=== PATIENT | male | born 1955 | race Caucasian/White ===

== ENCOUNTER → 2020-02-23 11:17 | Outpatient (BNVA) | payer BC, SELFPAY | PROVIDERS: Family Provider Family Medicine; PCP Family Medicine; Referring Provider Family Medicine; Visit Provider Family Medicine | DX: E78.00 Pure hypercholesterolemia, unspecified (principal); I10 Essential (primary) hypertension; M19.90 Unspecified osteoarthritis, unspecified site | CPT/HCPCS: 80053; 80061; 85025; 85651 ==

== ENCOUNTER → 2021-02-15 10:05 | Outpatient (BNVA) | payer MEDICARE, SELFPAY | PROVIDERS: Family Provider Family Medicine; PCP Family Medicine; Visit Provider Family Medicine | DX: J44.9 Chronic obstructive pulmonary disease, unspecified (principal); E78.00 Pure hypercholesterolemia, unspecified; I10 Essential (primary) hypertension; M48.061 Spinal stenosis, lumbar region without neurogenic claudication | CPT/HCPCS: 71046 ==

== ENCOUNTER 2021-04-05 22:58 | Emergency (ER) | payer MEDICARE, SELFPAY ==
[2021-04-05 23:33] VITALS: BP 100/65; PULSE 80; RESP 22; TEMP 37.2; O2SAT 80; BMI 24.0
[2021-04-06] VITALS (16 sets, daily range): BP systolic 100–138; BP diastolic 53–79; PULSE 74–93; RESP 20–34; O2SAT 85–92
--- NOTE | 2021-04-06 00:30 | XRR_ITS ---
PROCEDURE INFORMATION: Exam: XR Chest Exam date and time: 04/06/2021 12:30 AM Age: 65 years old Clinical indication: Shortness of breath; Patient HX: Sob/hypoxia. Covid + TECHNIQUE: Imaging protocol: XR of the chest. Views: 1 view. COMPARISON: CR XR chest 2V* [id number] 02/15/2021 10:09 AM FINDINGS: Lungs: Interval appearance of moderate to severe bilateral mid lung field pneumonia, left greater than right. Stable COPD . Pleural spaces: Unremarkable. No pleural effusion. No pneumothorax. Heart/Mediastinum: Unremarkable. No cardiomegaly. Bones/joints: Unremarkable. XR/XR chest 1V portable [id number] IMPRESSION: 1. Interval appearance of moderate to severe bilateral mid lung field pneumonia, left greater than right. 2. Stable COPD .
--- NOTE | 2021-04-06 00:30 | ECG_ITS ---
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 Measurements Intervals [place] Rate: 80 P: 66 [place]: 129 QRS: 32 QRSD: 85 T: 59 QT: 351 QTc: 406 Interpretive Statements SINUS RHYTHM POSSIBLE LEFT ATRIAL ENLARGEMENT [-0.1mV P WAVE IN V1/V2] No previous ECG available for comparison Electronically Signed On 04-06-2021 20:28:38 CDT by Steffi Ayala M.D. [id number]
[2021-04-06] MEDS: albuterol 8 gm MDI 2 PUFF INHALATION (00:59)
[2021-04-06 01:06] LABS: ABG PCO2 33.3 mmHg (35-45); ABG PH Result 7.47 (7.35-7.45); Arterial Blood Gas Hematocrit 47.8 % (42-52); Base Excess ABG 1.1 mmol/L (-2.0-2.0); Blood Gas Allen Test Pos; Blood Gas Operator Identificat MONRO; Blood Gas Sample Site Radial, right; Blood Gas Sample Type Arterial; HCO3 ABG 24.1 mmol/L (22-26); Oxygen Device NC; PO2 ABG 54.6 mmHg (80.0-100.0)
[2021-04-06 01:18] LABS: Hematocrit 45.9 % (42.0-52.0); Hemoglobin 15.4 g/dL (11.7-16.6); Mean Corpuscular HGB Conc 33.6 g/dL (30.0-36.0); Mean Corpuscular Hemoglobin 31.4 pg (28.0-34.0); Mean Corpuscular Volume 93.7 fL (80-94); Mean Platelet Volume 9.9 fL (7.4-10.4); Platelet Count 138 10^3/cmm (130-400); Red Cell Distribution Width 12.2 % (12.1-15.1); White Blood Count 14.5 10^3/uL (4.0-10.0)
[2021-04-06] MEDS: dexamethasone 10 mg/mL INJ IVP (01:18)
[2021-04-06 01:32] LABS: D Dimer 1.46 ug/mIFEU (0-0.59)
[2021-04-06 01:41] LABS: Lactic Sepsis W/Reflex 2.5 mmol/L (0.5-2.2)
[2021-04-06 01:43] LABS: Absolute Neutrophil 12.3 10^3/cmm (1.4-6.5); Absolute Segmented Neutrophil 8.4 10/cmm (1.6-7.1); Band Neutrophils Absolute 3.9 10^3/cmm (0.0-1.2); Eosinophils 0 %; Lymphocytes 5 %; Lymphocytes Absolute 0.9 10^3/cmm (1.2-3.4); Monocytes Absolute 0.1 10^3/cmm (0.1-0.6); Platelet Estimate Normal (Normal); Segmented Neutrophils 58 %; Slide Review Slide Review Perform; Total Cells Counted 100 (0-100)
[2021-04-06 01:51] LABS: Alanine Aminotransferase 65 U/L (0-41); Albumin Level 3.2 g/dL (3.5-5.2); Alkaline Phosphatase 55 IU/L (40-130); Anion Gap 19.3 (5-19); Aspartate Amino Transferase 102 U/L (0-40); Blood Urea Nitrogen 17 mg/dL (8-23); Calcium 8.2 mg/dL (8.5-10.5); Carbon Dioxide 21 mmol/L (22-29); Chloride 92 mmol/L (98-107); Globulin 3.1 g/dL (1.3-4.6); Glucose 111 mg/dL (65-115); NT Pro B Type Natriuretic Pept 349 pg/mL (0-125); Osmolality Calculated 268 mOsm/kg (285-295); Potassium 4.3 mmol/L (3.5-5.1); Sodium 128 mmol/L (136-145); Total Bilirubin 0.6 mg/dL (0.15-1.2); Total Protein 6.3 g/dL (6.6-8.7)
--- NOTE | 2021-04-06 02:00 | W.ED.COVID ---
HPI - COVID General: Chief Complaint: COVID symptoms Stated Complaint: COVID POS, SOB LOW SATS Time Seen by Provider: 04/05/21 23:39 Source: patient Mode of arrival: ambulatory Limitations: no limitations Triage information: Has fever, cough or shortness of breath. No known COVID + exposure last 14 days History of Present Illness: HPI Narrative: 65-year-old male states he has not been feeling well since last and had a Covid positive test then. He states that today has had increasing dyspnea and was hypoxic at home. He is requiring 4 L here and has had a productive cough. He has had fever as well. Denies any worsening proving factors. Denies any chest pain. COVID 19 common symptoms: positive fever(s), chills, productive cough, dyspnea and body aches; negative headache(s), throat pain, nausea, vomiting or diarrhea COVID 19 other sytmptoms: negative chest pain COVID Results: No Data to Display Review of Systems Const: Reports: fever(s), chills and body aches Eyes: Denies: blurry vision or eye discomfort ENMT: Denies: throat pain or dental pain Card: Denies: chest pain Resp: Reports: dyspnea and productive cough GI: Denies: abdominal pain, nausea, vomiting or diarrhea : Denies: dysuria Musc: Denies: neck pain or back pain Skin/Breast: Denies: rash Neuro: Denies: headache(s) Psych: Denies: depression Obi/Lymph: Denies: easy bruising All/Imm: Denies: urticaria PFSH ED PFSH: Medical History Asthma Chronic obstructive pulmonary disease Degenerative lumbar spinal stenosis Hypercholesteremia Hypertension Social History Smoking and tobacco status: never smoked Alcohol intake: never Physical Exam Const: COMMON NORMALS: patient oriented x3 GENERAL APPEARANCE: in distress and ill appearing HENMT: COMMON NORMALS: normocephalic and atraumatic HEAD & SCALP: normocephalic and atraumatic Eye: COMMON NORMALS: Equal, round and reactive pupils present and EOMs intact bilaterally PUPIL: Yes Equal, round and reactive pupils present Neck/C-Spine: COMMON NORMALS: full ROM and supple Chest: COMMONS NORMALS: normal inspection of the chest and normal palpation of entire chest wall Resp: COMMON NORMALS: No retractions EFFORT & INSPECTION: Yes tachypneic and Yes respiratory distress AUSCULTATION: rales Cardio: COMMON NORMALS: regular rate, regular rhythm and No murmurs present (Cardio) RATE: regular rate RHYTHM: regular rhythm GI: COMMON NORMALS: Normal to inspection, nondistended, normoactive bowel sounds present, Soft to palpation, non-tender and no masses PALPATION: Yes Soft to palpation Extremity: COMMON NORMALS: normal to inspection and full ROM Neuro: COMMON NORMALS: patient oriented x3, moves all extremities and no focal motor deficits Psych: COMMON NORMALS: mental status grossly normal, Normal thought process present and cooperative THOUGHT PROCESS: Normal thought process present Skin: COMMON NORMALS: no rashes or lesions noted and no wounds GENERAL SKIN EXAM: no rashes or lesions noted Course Vital Signs: Vital signs: Vital Signs Temperature 98.9 F 04/05/21 23:33 Pulse Rate 88 04/06/21 04:04 Respiratory Rate 30 H 04/06/21 04:04 Blood Pressure 108/53 04/06/21 04:04 Pulse Oximetry 89 L 04/06/21 04:04 MDM - COVID MDM Narrative: Medical decision making narrative: Patient presents here with Covid pneumonia. X-ray shows finding of possible bacterial pneumonia as well and will start him on IV antibiotics. Patient is requiring 4 L of oxygen here does have elevated inflammatory markers. I spoke to hospitalist that [facility] in [place] and will transfer there due to bed availability. Lab Data: Labs: Lab Results 04/06/21 04/06/21 04/06/21 Range/Units 00:30 00:30 00:30 WBC Cancelled Corrected WBC Cancelled RBC Cancelled Hgb Cancelled Hct Cancelled MCV Cancelled MCH Cancelled MCHC Cancelled RDW Cancelled Plt Count Cancelled MPV Cancelled Gran % Cancelled Neut % (Auto) Cancelled Lymph % (Auto) Cancelled Davie % (Auto) Cancelled Eos % (Auto) Cancelled Baso % (Auto) Cancelled Neut # (Auto) Cancelled Lymph # (Auto) Cancelled Davie # (Auto) Cancelled Eos # (Auto) Cancelled Baso # (Auto) Cancelled Absolute Gran (aut o) Cancelled Nucleated RBC % (a uto) Cancelled Total Counted (0-100) Atypical Lymphs % (0-5) % Absolute Neutrophi ls (1.4-6.5) 10^3/c mm Segmented Neutroph ils % Abs Segm Neuts (Ma n) (1.6-7.1) 10/cmm Band Neutrophils % Abs Band Neuts (Ma n) (0.0-1.2) 10^3/c mm Absolute Lymphocyt es (1.2-3.4) 10^3/c mm Lymphocytes (Manua l) % Monocytes (Manual) % Absolute Monocytes (0.1-0.6) 10^3/c mm Eosinophils (Manua l) % Absolute Eosinophi ls (0.0-0.7) 10^3/c mm Basophils (Manual) % Absolute Basophils (0.0-0.2) 10^3/c mm Metamyelocytes % Myelocytes % Nucleated RBCs # Cancelled Platelet Estimate (Normal) D-Dimer Cancelled Specimen Type Sample Site ABG pH (7.35-7.45) ABG pCO2 (35-45) mmHg ABG pO2 (80.0-100.0) mmH g ABG HCO3 (22-26) mmol/L ABG Base Excess (-2.0-2.0) mmol/ L Broderick Test Hematocrit (42-52) % O2 Delivery Device O2 Liters/Min % FiO2 % Grounds Restoration Specialist ID Sodium Cancelled Potassium Cancelled Chloride Cancelled Carbon Dioxide Cancelled Anion Gap Cancelled BUN Cancelled Creatinine Cancelled GFR Calculation Cancelled Glucose Cancelled Calculated Osmolal ity Cancelled Lactic Acid Calcium Cancelled Total Bilirubin Cancelled AST Cancelled ALT Cancelled Alkaline Phosphata se Cancelled C-Reactive Protein Cancelled NT-Pro-B Natriuret Pep Cancelled Total Protein Cancelled Albumin Cancelled Globulin Cancelled 04/06/21 04/06/21 04/06/21 Range/Units 00:30 00:54 01:06 WBC 14.5 H Corrected WBC RBC 4.90 Hgb 15.4 Hct 45.9 MCV 93.7 MCH 31.4 MCHC 33.6 RDW 12.2 Plt Count 138 MPV 9.9 Gran % Neut % (Auto) Lymph % (Auto) Not Reportable Davie % (Auto) Not Reportable Eos % (Auto) Baso % (Auto) Neut # (Auto) Lymph # (Auto) Not Reportable Davie # (Auto) Not Reportable Eos # (Auto) Baso # (Auto) Absolute Gran (aut o) Nucleated RBC % (a uto) Total Counted 100 (0-100) Atypical Lymphs % 1.0 (0-5) % Absolute Neutrophi ls 12.3 H (1.4-6.5) 10^3/c mm Segmented Neutroph ils 58 % Abs Segm Neuts (Ma n) 8.4 H (1.6-7.1) 10/cmm Band Neutrophils 27.0 % Abs Band Neuts (Ma n) 3.9 H (0.0-1.2) 10^3/c mm Absolute Lymphocyt es 0.9 L (1.2-3.4) 10^3/c mm Lymphocytes (Manua l) 5 % Monocytes (Manual) 1.0 % Absolute Monocytes 0.1 (0.1-0.6) 10^3/c mm Eosinophils (Manua l) 0 % Absolute Eosinophi ls 0.0 (0.0-0.7) 10^3/c mm Basophils (Manual) 0.0 % Absolute Basophils 0.0 (0.0-0.2) 10^3/c mm Metamyelocytes 7.0 % Myelocytes 1.0 % Nucleated RBCs # Platelet Estimate Normal (Normal) D-Dimer Specimen Type Arterial Sample Site Radial, right ABG pH 7.47 H (7.35-7.45) ABG pCO2 33.3 L (35-45) mmHg ABG pO2 54.6 L (80.0-100.0) mmH g ABG HCO3 24.1 (22-26) mmol/L ABG Base Excess 1.1 (-2.0-2.0) mmol/ L Broderick Test Pos Hematocrit 47.8 (42-52) % O2 Delivery Device Nc O2 Liters/Min 4.0 % FiO2 36.0 % Grounds Restoration Specialist ID [place] Sodium Potassium Chloride Carbon Dioxide Anion Gap BUN Creatinine GFR Calculation Glucose Calculated Osmolal ity Lactic Acid Cancelled Calcium Total Bilirubin AST ALT Alkaline Phosphata se C-Reactive Protein NT-Pro-B Natriuret Pep Total Protein Albumin Globulin 04/06/21 04/06/21 04/06/21 Range/Units 01:06 01:06 01:06 WBC Corrected WBC RBC Hgb Hct MCV MCH MCHC RDW Plt Count MPV Gran % Neut % (Auto) Lymph % (Auto) Davie % (Auto) Eos % (Auto) Baso % (Auto) Neut # (Auto) Lymph # (Auto) Davie # (Auto) Eos # (Auto) Baso # (Auto) Absolute Gran (aut o) Nucleated RBC % (a uto) Total Counted (0-100) Atypical Lymphs % (0-5) % Absolute Neutrophi ls (1.4-6.5) 10^3/c mm Segmented Neutroph ils % Abs Segm Neuts (Ma n) (1.6-7.1) 10/cmm Band Neutrophils % Abs Band Neuts (Ma n) (0.0-1.2) 10^3/c mm Absolute Lymphocyt es (1.2-3.4) 10^3/c mm Lymphocytes (Manua l) % Monocytes (Manual) % Absolute Monocytes (0.1-0.6) 10^3/c mm Eosinophils (Manua l) % Absolute Eosinophi ls (0.0-0.7) 10^3/c mm Basophils (Manual) % Absolute Basophils (0.0-0.2) 10^3/c mm Metamyelocytes % Myelocytes % Nucleated RBCs # Platelet Estimate (Normal) D-Dimer 1.46 H Specimen Type Sample Site ABG pH (7.35-7.45) ABG pCO2 (35-45) mmHg ABG pO2 (80.0-100.0) mmH g ABG HCO3 (22-26) mmol/L ABG Base Excess (-2.0-2.0) mmol/ L Broderick Test Hematocrit (42-52) % O2 Delivery Device O2 Liters/Min % FiO2 % Grounds Restoration Specialist ID Sodium 128 L Potassium 4.3 Chloride 92 L Carbon Dioxide 21 L Anion Gap 19.3 H BUN 17 Creatinine 1.0 GFR Calculation 75.0 L Glucose 111 Calculated Osmolal ity 268 L Lactic Acid 2.5 H Calcium 8.2 L Total Bilirubin 0.6 AST 102 H ALT 65 H Alkaline Phosphata se 55 C-Reactive Protein 496.5 H NT-Pro-B Natriuret Pep 349 H Total Protein 6.3 L Albumin 3.2 L Globulin 3.1 Imaging Data: CXR: Attestation: I personally reviewed and interpreted this imaging study as follows: Radiologist's impression: [facility] [address] [place] [address] XRay Report Signed Patient: Robert Landaverde Unit #: [id number] : 1955 Age/Sex: 65 / M ADM Date: 04/05/21 Loc: ER Room/Bed: Attending Dr: Ordering Provider/Ordering MD: Maria Elena Boland MD Date of Service: 04/06/21 Procedure(s): XR chest 1V portable [id number] Accession Number(s): [id number] Report Number: [id number] PROCEDURE INFORMATION: Exam: XR Chest Exam date and time: 04/06/2021 12:30 AM Age: 65 years old Clinical indication: Shortness of breath; Patient HX: Sob/hypoxia. Covid + TECHNIQUE: Imaging protocol: XR of the chest. Views: 1 view. COMPARISON: CR XR chest 2V* [id number] 02/15/2021 10:09 AM FINDINGS: Lungs: Interval appearance of moderate to severe bilateral mid lung field pneumonia, left greater than right. Stable COPD . Pleural spaces: Unremarkable. No pleural effusion. No pneumothorax. Heart/Mediastinum: Unremarkable. No cardiomegaly. Bones/joints: Unremarkable. XR/XR chest 1V portable [id number] IMPRESSION: 1. Interval appearance of moderate to severe bilateral mid lung field pneumonia, left greater than right. 2. Stable COPD . 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
[2021-04-06 02:12] LABS: C Reactive Protein 496.5 mg/L (0.0-4.9)
[2021-04-06] MEDS: cefTRIAXone 1,000 MG in sodium chloride 0.9% (plus) 50 ML 100 MG IV (02:25)
[2021-04-06 03:01] LABS: Reflex Lactate Order REFLEX LACTIC ORDERD
[2021-04-06] MEDS: azithromycin 500 MG in sodium chloride 0.9% 250 ML 250 MG IV (03:05)
[2021-04-06] MEDS: remdesivir 200 MG in sodium chloride 0.9% (100 ml) 100 ML 100 MG IV (05:33)
== END 2021-04-06 07:23 | disposition short-term general hospital (02) ==
PROVIDERS: Emergency Provider Emergency Medicine; PCP Family Medicine
DX: U07.1 COVID-19 (principal); J12.82 Pneumonia due to coronavirus disease 2019; J44.9 Chronic obstructive pulmonary disease, unspecified; I10 Essential (primary) hypertension
CPT/HCPCS: 36415; 36600; 71045; 80053; 82803; 83605; 83880; 85007; 85025; 85378; 86140; 87040; 93005; 94640; 96365; 96367; 96375; 99285; J0456; J0696; J1100; J3535; J7050

== ENCOUNTER 2021-04-30 08:08 | Emergency (ER) | payer MEDICARE, SELFPAY ==
[2021-04-30] VITALS (9 sets, daily range): BP systolic 116–148; BP diastolic 71–83; PULSE 81–92; RESP 14–18; TEMP 36.7; O2SAT 89–98; BMI 24.0
--- NOTE | 2021-04-30 08:12 | ECG_ITS ---
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 Measurements Intervals [place] Rate: 87 P: 20 [place]: 143 QRS: -13 QRSD: 89 T: 41 QT: 345 QTc: 417 Interpretive Statements SINUS RHYTHM MODERATE VOLTAGE CRITERIA FOR LVH, CONSIDER NORMAL VARIANT [MEETS CRITERIA IN ONE OF: R(aVL), S(V1), R(V5), R(V5/V6)+S(V1)] INTERPRETATION BASED ON A DEFAULT AGE OF 40 YEARS Compared to ECG 04/06/2021 00:53:18 No significant changes Electronically Signed On 04-30-2021 22:03:54 CDT by Christofer Vaz M.D. [id number] f
--- NOTE | 2021-04-30 08:12 | XRR_ITS ---
PROCEDURE INFORMATION: Exam: XR Chest Exam date and time: 04/30/2021 8:12 AM Age: 65 years old Clinical indication: Dyspnea TECHNIQUE: Imaging protocol: XR of the chest. Views: 1 view. Total images: 1 COMPARISON: CR (CHEST, ) 04/06/2021 12:51 AM FINDINGS: Lungs: Coarse chronic pulmonary markings. Bilateral pulmonary opacities are again noted and have shown interval worsening from the prior exam. Pleural spaces: Unremarkable. No pleural effusion. No pneumothorax. Heart/Mediastinum: Low lung volumes are present, accentuating cardiac size and pulmonary markings. Bones/joints: Osseous structures are unchanged from the prior exam. XR/XR chest 1V portable [id number] IMPRESSION: 1. Low lung volumes are present, accentuating cardiac size and pulmonary markings. 2. Coarse chronic pulmonary markings. 3. Bilateral pulmonary opacities are again noted and have shown interval worsening from the prior exam.
--- NOTE | 2021-04-30 08:31 | CTR_ITS ---
PROCEDURE INFORMATION: Exam: CTA Chest With Contrast Exam date and time: 04/30/2021 8:31 AM Age: 65 years old Clinical indication: Pain; Left-sided; Additional info: Prior covid, persistent hypoxia, pleuritic chest pain TECHNIQUE: Imaging protocol: Computed tomographic angiography of the chest with contrast. 3D rendering (Not supervised by radiologist): MIP and/or 3D reconstructed images were created by the technologist. Radiation optimization: All CT scans at this facility use at least one of these dose optimization techniques: automated exposure control; mA and/or kV adjustment per patient size (includes targeted exams where dose is matched to clinical indication); or iterative reconstruction. Contrast material: OMNIPAQUE 350; Contrast volume: 63 ml; Contrast route: INTRAVENOUS (IV); COMPARISON: CR (CHEST, ) 04/30/2021 9:12 AM RADIATION DOSE METRICS: Total DLP (mGy-cm): 503.76 FINDINGS: Pulmonary arteries: Normal. No pulmonary emboli. Aorta: There is atherosclerotic calcification of the aorta but there is no aneurysm. Lungs: There are extensive bilateral pulmonary infiltrates which may be due to an interstitial viral pneumonia. There is left basilar consolidation. Pleural spaces: There is a small left pleural effusion. No pneumothorax. Heart: The heart is not enlarged. There is moderate calcification of the coronary arteries. Mediastinal space: Small sliding hiatal hernia. Lymph nodes: Unremarkable. No enlarged lymph nodes. 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 Soft tissues: Unremarkable. CT/CT angio chest PE protcl [id number] IMPRESSION: 1. No evidence of pulmonary embolus or aortic aneurysm/dissection. 2. Extensive bilateral pulmonary infiltrates which could be due to a viral pneumonia. 3. Small left pleural effusion and left basilar atelectasis. 4. Moderate coronary artery calcification. Radiation Dose CTDIVOL = (mGy): DLP = 503.76 (mGy-cm)
--- NOTE | 2021-04-30 09:29 | W.ED.GENADLT ---
HPI - General Adult General: Chief complaint: General Medical Stated complaint: pain with inspiration Time Seen by Provider: 04/30/21 09:18 History of Present Illness: HPI narrative: Patient is a 65-year-old male with history of rheumatoid arthritis, hypertension who was recently hospitalized at [facility] on 04/06/2021 for Covid pneumonia and discharged home on 3 L nasal cannula presenting to the emergency room with complaints of acute onset left-sided pleuritic chest pain since yesterday afternoon. Patient says that pain gradually onset x 1 day and since then, has been unable to take a full deep breath. Patient denies any nausea/vomiting, cough, hemoptysis, history of DVT/PE, leg swelling, or ED exertional shortness of breath. Patient also denies any palpitation, GI or symptoms. No history of smoking, no family history of cardiac diseases. Patient denies any sympathomimetic use. Patient denies any right-sided chest pain as documented per triage. Onset:1 day ago Duration:1 day Location:home Severity:moderate Review of Systems Narrative: Constitutional: No fever, no chills. HEENT: No vision changes CV: +pleuritic chest pain, no palpitations PULM: no cough, no dyspnea. GI: No abdominal pain, no N/V/D. : No dysuria MSKEL: No muscle pain SKIN: No new rashes, no lesions. NEURO: No headache, no focal weakness. HEME: No visible bruises PSYCH: Normal mood [facility] ED PFSH: Medical History Asthma Chronic obstructive pulmonary disease Degenerative lumbar spinal stenosis Hypercholesteremia Hypertension Social History Smoking and tobacco status: never smoked Alcohol intake: never Physical Exam Narrative: EXAM NARRATIVE: Head: Atraumatic Eyes: PERRL, conjunctiva without injection ENT: Mucous membrane moist NECK: Supple, ROM intact LUNGS: Coarse breath sounds throughout lung arzola CV: RRR ABDOMEN: Soft, nontender in all quadrants EXTREMITY: Normal ROM SKIN: No rash or erythema NEURO: Awake and alert, no focal motor deficits PSYCH: Normal mood and affect Course Vital Signs: Vital signs: Vital Signs Temperature 98.0 F 08/28/21 08:20 Pulse Rate 82 04/30/21 12:59 Respiratory Rate 18 04/30/21 13:39 Blood Pressure 116/79 04/30/21 12:59 Pulse Oximetry 97 04/30/21 13:39 MDM - General Adult MDM Narrative: Medical decision making narrative: 65-year-old male with history of hypertension, rheumatoid arthritis, recent Covid pneumonia presenting to the emergency room for evaluation of acute onset left-sided pleuritic chest pain. On room air, patient sats at 93%. However uses 3 L of oxygen at baseline. EKG showing regular sinus rhythm at HT of [87]. Normal axis. No ST elevations/depressions to suggest coronary occlusion. Normal TX, QRS, QT intervals. Work-up today showed a white count of 13 which is consistent with prior visit for COVID PNA. CTA chest negative for PE. Patient is noted to have bilateral pulmonary infiltrate which could explain patient's source of pain. Pain appears to be well controlled. Patient will follow-up with a forest fire prevention manager on 05/23. Troponin today initially is noted to be 23, repeat troponin of 21. At this present time, patient denies has any exertional chest pain or squeezing chest pain. I do not know what the source of the troponin elevation is. In addition, I told him he has moderate calcification in the coronary arteries on CTA which is very concerning. I have discussed this finding with patient and offered admission for serial reevaluation/echo/and stress. However upon hearing that the stress test will not be available on the weekend and will only be available on Sunday (3 days from now), high prevalance of covid and possible reexposure, and no hospital beds (only ED boarding at this time) during the ongoing covid pandemic, the patient declined to come into the hospital today. I have explained to the patient the risk of leaving today including possible serious injuries such as heart attack and possible . Patient verbalizes understanding of all these risks and acknowledges desire for the alternative of going to see a gold burnisher outpatient to follow-up with his blood work. Patient is instructed to use the incentive spirometer as much as he needs it. Rx: Percocet PRN chest pain Disposition: Discharge. I have given patient strict return precaution for any worsening chest pain, fever/chills, nausea, vomiting, abdominal pain, or any new or concerning complaints. Have explained to the patient that it is very important that he follows up with his primary care provider as well as a gold burnisher for addressing his troponin elevation. I have called our case planner to make sure that the patient has an appointment with a gold burnisher by Sunday. If patient is experiencing chest pain at any point time, I have instructed patient to come back to the emergency room for further cardiac work-up. Patient verbalizes understanding of everything discussed today. Lab Data: Labs: Lab Results 04/30/21 04/30/21 04/30/21 Range/Units 10:10 10:10 10:10 WBC 13.0 H (4.0-10.0) 10^3/ uL RBC 4.01 L (4.1-5.3) 10^6/u L Hgb 12.4 (11.7-16.6) g/dL Hct 38.4 L (42.0-52.0) % MCV 95.8 H (80-94) fl MCH 30.9 (28.0-34.0) pg MCHC 32.3 (30.0-36.0) g/dL RDW 12.9 (12.1-15.1) % Plt Count 214 (130-400) 10^3/c mm MPV 9.1 (7.4-10.4) fL Neut % (Auto) 83.7 % Lymph % (Auto) 7.7 % [place] % (Auto) 5.9 % Eos % (Auto) 1.3 % Baso % (Auto) 0.5 % Neut # (Auto) 10.88 H (1.8-7.7) 10^3/u L Lymph # (Auto) 1.0 (0.8-4.8) 10^3/u L [place] # (Auto) 0.8 (0.2-0.9) 10^3/u L Eos # (Auto) 0.2 (0.0-0.8) 10^3/u L Baso # (Auto) 0.1 (0.0-0.1) 10^3/u L Nucleated RBC % (a uto) 0 % Nucleated RBCs # 0.0 /100WBC Sodium 138 (136-145) mmol/L Potassium 4.1 (3.5-5.1) mmol/L Chloride 101 (98-107) mmol/L Carbon Dioxide 27 (22-29) mmol/L Anion Gap 14.1 (5-19) BUN 11 (8-23) mg/dL Creatinine 0.7 (0.7-1.2) mg/dL GFR Calculation 113.2 (90-130) mL/min Glucose 95 (65-115) mg/dL Calculated Osmolal ity 285 (285-295) mOsm/k g Calcium 8.2 L (8.5-10.5) mg/dL Troponin T Baselin e 23 H (0-15) ng/L Troponin T 120 Min seminole (0-15) ng/L Delta Troponin T (0-10) ABS# NT-Pro-B Natriuret Pep 155 H (0-125) pg/mL SARS-CoV-2 Ag (Rap id) (Negative) 04/30/21 04/30/21 Range/Units 10:10 12:24 WBC (4.0-10.0) 10^3/ uL RBC (4.1-5.3) 10^6/u L Hgb (11.7-16.6) g/dL Hct (42.0-52.0) % MCV (80-94) fl MCH (28.0-34.0) pg MCHC (30.0-36.0) g/dL RDW (12.1-15.1) % Plt Count (130-400) 10^3/c mm MPV (7.4-10.4) fL Neut % (Auto) % Lymph % (Auto) % [place] % (Auto) % Eos % (Auto) % Baso % (Auto) % Neut # (Auto) (1.8-7.7) 10^3/u L Lymph # (Auto) (0.8-4.8) 10^3/u L [place] # (Auto) (0.2-0.9) 10^3/u L Eos # (Auto) (0.0-0.8) 10^3/u L Baso # (Auto) (0.0-0.1) 10^3/u L Nucleated RBC % (a uto) % Nucleated RBCs # /100WBC Sodium (136-145) mmol/L Potassium (3.5-5.1) mmol/L Chloride (98-107) mmol/L Carbon Dioxide (22-29) mmol/L Anion Gap (5-19) BUN (8-23) mg/dL Creatinine (0.7-1.2) mg/dL GFR Calculation (90-130) mL/min Glucose (65-115) mg/dL Calculated Osmolal ity (285-295) mOsm/k g Calcium (8.5-10.5) mg/dL Troponin T Baselin e (0-15) ng/L Troponin T 120 Min seminole 21.99 H (0-15) ng/L Delta Troponin T -1.01 L (0-10) ABS# NT-Pro-B Natriuret Pep (0-125) pg/mL SARS-CoV-2 Ag (Rap id) Negative (Negative) Imaging Data^: Other Imaging: Radiologist's impression: [address] [id number] ReportSigned Patient: Robert Landaverde #: [id number]: 5Acct#:[id number]/Sex: 65 / MADM Date: 04/30/21Loc: ERRoom/Bed:Attending Dr: Ordering Provider/Ordering MD: Stephan Barlow MD Date of Service: 04/30/21 Procedure(s): XR chest 1V portable [id number] Accession Number(s): [id number] Report Number: [id number] PROCEDURE INFORMATION: Exam: XR Chest Exam date and time: 04/30/2021 8:12 AM Age: 65 years old Clinical indication: Dyspnea TECHNIQUE: Imaging protocol: XR of the chest. Views: 1 view. Total images: 1 COMPARISON: CR (CHEST, ) 04/06/2021 12:51 AM FINDINGS: Lungs: Coarse chronic pulmonary markings. Bilateral pulmonary opacities are again noted and have shown interval worsening from the prior exam. Pleural spaces: Unremarkable. No pleural effusion. No pneumothorax. Heart/Mediastinum: Low lung volumes are present, accentuating cardiac size and pulmonary markings. Bones/joints: Osseous structures are unchanged from the prior exam. XR/XR chest 1V portable [id number] IMPRESSION: 1. Low lung volumes are present, accentuating cardiac size and pulmonary markings. 2. Coarse chronic pulmonary markings. 3. Bilateral pulmonary opacities are again noted and have shown interval worsening from the prior exam. Dictated By:Dionisio Llamas MDSigned By:Dionisio Llamas MDSigned Date/Time:04/30/21 1029DD/ [address] [facility] [place], [place] [address]GJ Scan ReportSigned Patient: Robert Landaverde #: [id number]: 5Acct#:[id number]/Sex: 65 / MADM Date: 04/30/21Loc: ERRoom/Bed:Attending Dr: Ordering Provider/Ordering MD: Stephan Barlow MD Date of Service: 04/30/21 Procedure(s): CT angio chest PE protcl [id number] Accession Number(s): [id number] Report Number: [id number] PROCEDURE INFORMATION: Exam: CTA Chest With Contrast Exam date and time: 04/30/2021 8:31 AM Age: 65 years old Clinical indication: Pain; Left-sided; Additional info: Prior covid, persistent hypoxia, pleuritic chest pain TECHNIQUE: Imaging protocol: Computed tomographic angiography of the chest with contrast. 3D rendering (Not supervised by radiologist): MIP and/or 3D reconstructed images were created by the technologist. Radiation optimization: All CT scans at this facility use at least one of these dose optimization techniques: automated exposure control; mA and/or kV adjustment per patient size (includes targeted exams where dose is matched to clinical indication); or iterative reconstruction. Contrast material: OMNIPAQUE 350; Contrast volume: 63 ml; Contrast route: INTRAVENOUS (IV); COMPARISON: CR (CHEST, ) 04/30/2021 9:12 AM RADIATION DOSE METRICS: Total DLP (mGy-cm): 503.76 FINDINGS: Pulmonary arteries: Normal. No pulmonary emboli. Aorta: There is atherosclerotic calcification of the aorta but there is no aneurysm. Lungs: There are extensive bilateral pulmonary infiltrates which may be due to an interstitial viral pneumonia. There is left basilar consolidation. Pleural spaces: There is a small left pleural effusion. No pneumothorax. Heart: The heart is not enlarged. There is moderate calcification of the coronary arteries. Mediastinal space: Small sliding hiatal hernia. Lymph nodes: Unremarkable. No enlarged lymph nodes. 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 Soft tissues: Unremarkable. CT/CT angio chest PE protcl [id number] IMPRESSION: 1. No evidence of pulmonary embolus or aortic aneurysm/dissection. 2. Extensive bilateral pulmonary infiltrates which could be due to a viral pneumonia. 3. Small left pleural effusion and left basilar atelectasis. 4. Moderate coronary artery calcification. Radiation Dose CTDIVOL = (mGy): DLP = 503.76 (mGy-cm) Dictated By:Tiffany Morales By:Tiffany Morales Date/Time:04/30/216DD/ 1205 Discharge Plan Discharge Patient Disposition: Home Clinical Impression: Chest pain Condition: Stable Prescriptions: New Percocet 5-325 mg tablet 1 tab PO TID PRN (Reason: pain) Qty: 12 RF: 0 ibuprofen 400 mg tablet 400 mg PO TID PRN (Reason: pain) Qty: 21 RF: 0 No Action fluticasone propion-salmeterol [Advair Diskus] 250-50 mcg/dose blister with device 1 inh INHALATION BID RF: 0 nitroglycerin [Nitrostat] 0.4 mg tablet, sublingual 0.4 mg SUBLINGUAL Q5M PRNRF: 0 atorvastatin 20 mg tablet 20 mg PO DAILY Qty: 90 RF: 2 lisinopril-hydrochlorothiazide 20-25 mg tablet 1 tab PO DAILY Qty: 90 RF: 3 prednisone 10 mg tablet 10 mg PO BID 30 Days Qty: 60 RF: 4 Zyrtec 10 mg capsule 10 mg PO DAILY 15 Days Qty: 15 RF: 0 amlodipine 5 mg tablet 5 mg PO BID 90 Days Qty: 180 RF: 3 nystatin 100,000 unit/mL suspension 5 ml PO TID 7 Days Qty: 200 RF: 0 methotrexate sodium 2.5 mg tablet 10 mg PO DAILY Qty: 60 RF: 1 albuterol sulfate [ProAir HFA] 90 mcg/actuation HFA aerosol inhaler See Rx Instructions .ROUTE .COMPLEX Qty: 8.5 RF: 4 hydrocodone-acetaminophen 7.5-325 mg tablet 1 tab PO TID PRN (Reason: pain) 30 Days Qty: 90 RF: 0 amoxicillin 500 mg tablet 1,000 mg PO Q8H 7 Days Qty: 42 RF: 0 azithromycin 250 mg tablet See Rx Instructions .ROUTE .COMPLEX Qty: 6 RF: 0 Discharge Orders: Discharge ED (Routine); Ordered 04/30/21 Ordered By: Stephan Barlow Referrals: Leila Weiss MD [Primary Care Provider] - Discharge Diet: Regular Discharge Activity: Resume usual activity Patient Instructions: Opioid Safety Activity Restrictions/Additional Instructions: Come back to the emergency room your pain worsens, if you have any fever chills, nausea vomiting, difficulty breathing, or any new or concerning complaints. Please take your opiate medication carefully. Please follow-up with a gold burnisher for your abnormal enzyme results. Coding Level of Care Code ED Dna Sequencing Associate for Mj Paredes
--- NOTE | 2021-04-30 09:40 | PC.NURSE ---
pt arrived on unit at 0940; assumed care at that time.
--- NOTE | 2021-04-30 10:12 | ECG_ITS ---
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 Measurements Intervals [place] Rate: 85 P: 29 RI: 152 QRS: -10 QRSD: 86 T: 41 QT: 350 QTc: 418 Interpretive Statements SINUS RHYTHM MODERATE VOLTAGE CRITERIA FOR LVH, CONSIDER NORMAL VARIANT [MEETS CRITERIA IN ONE OF: R(aVL), S(V1), R(V5), R(V5/V6)+S(V1)] Compared to ECG 04/06/2021 00:53:18 No significant changes Electronically Signed On 04-30-2021 22:07:36 CDT by Christofer Vaz M.D. [id number]
[2021-04-30] MEDS: morphine 4 mg/mL SDV 1 mL 2 MG IVP (10:23)
[2021-04-30 10:41] LABS: Basophils # 0.1 10^3/uL (0.0-0.1); Basophils % 0.5 %; Eosinophils # 0.2 10^3/uL (0.0-0.8); Eosinophils % 1.3 %; Hematocrit 38.4 % (42.0-52.0); Hemoglobin 12.4 g/dL (11.7-16.6); Lymphocytes % 7.7 %; Mean Corpuscular HGB Conc 32.3 g/dL (30.0-36.0); Mean Corpuscular Hemoglobin 30.9 pg (28.0-34.0); Mean Corpuscular Volume 95.8 fl (80-94); Mean Platelet Volume 9.1 fL (7.4-10.4); Monocytes # 0.8 10^3/uL (0.2-0.9); Monocytes % 5.9 %; Neutrophils # 10.88 10^3/uL (1.8-7.7); Neutrophils % 83.7 %; Nucleated Red Blood Cells % 0 %; Platelet Count 214 10^3/cmm (130-400); Red Blood Count 4.01 10^6/uL (4.1-5.3); Red Cell Distribution Width 12.9 % (12.1-15.1)
[2021-04-30 11:04] LABS: Troponin(5th) Baseline 23 ng/L (0-15)
[2021-04-30 11:14] LABS: Anion Gap 14.1 (5-19); Blood Urea Nitrogen 11 mg/dL (8-23); Calcium 8.2 mg/dL (8.5-10.5); Carbon Dioxide 27 mmol/L (22-29); Chloride 101 mmol/L (98-107); Glomerular Filtration Rate 113.2 mL/min (90-130); Glucose 95 mg/dL (65-115); NT Pro B Type Natriuretic Pept 155 pg/mL (0-125); Osmolality Calculated 285 mOsm/kg (285-295); Potassium 4.1 mmol/L (3.5-5.1); SARS Covid-2 Antigen Negative (Negative); Sodium 138 mmol/L (136-145)
[2021-04-30] MEDS: iohexol 350 mg/mL 100 mL Btl IV (11:30)
[2021-04-30] MEDS: morphine 4 mg/mL SDV 1 mL IVP (11:45)
[2021-04-30 13:04] LABS: Troponin 5 2HR 21.99 ng/L (0-15)
[2021-04-30 13:07] LABS: Troponin 5 2HR Delta -1.01 ABS# (0-10)
[2021-04-30] MEDS: oxyCODONE-APAP 5-325 mg Tablet 1 TAB PO (13:07)
[2021-05-01 17:52] LABS: Quest SARS-CoV-2 RNA DETECTED (NOT DETECTED)
== END 2021-04-30 13:41 | disposition home or self-care (01) ==
PROVIDERS: Emergency Provider Emergency Medicine; PCP Family Medicine
DX: R07.9 Chest pain, unspecified (principal); J44.9 Chronic obstructive pulmonary disease, unspecified; E78.00 Pure hypercholesterolemia, unspecified; I10 Essential (primary) hypertension; Z86.16 Personal history of COVID-19; J18.9 Pneumonia, unspecified organism; J90 Pleural effusion, not elsewhere classified
CPT/HCPCS: 71045; 71275; 80048; 83880; 84484; 85025; 87426; 87635; 93005; 96374; 96376; 99283; 99284; J2270; Q9967

== ENCOUNTER 2021-04-30 17:14 | Emergency (ER) | payer MEDICARE, SELFPAY ==
[2021-04-30 18:05] VITALS: BP 119/73; PULSE 90; RESP 18; TEMP 36.8; O2SAT 91; BMI 24.0
--- NOTE | 2021-04-30 20:05 | ED_ITS ---
HPI - Chest Pain General: Chief Complaint: Chest Pain Stated Complaint: chest pain Time Seen by Provider: 04/30/21 19:25 Source: patient, RN notes reviewed and old records reviewed Mode of arrival: ambulatory Limitations: no limitations History of Present Illness: HPI narrative: 65-year-old male who was seen earlier today in the emergency department for the same symptoms. He complained of left-sided chest pain and an extensive work-up was done during his first ED visit. Baseline and 2-hour troponin delta was flat. Troponin was mildly elevated. CTA of his lungs that were done earlier was negative for pulmonary embolism but showed bilateral pneumonia and some pleural effusion. The ED physician was also concerned that on the CTA calcification of the coronary arteries were noted. He therefore wanted to admit the patient at the time but apparently the hospitalist was not in agreement. Somehow the patient's called and spoke to the ED physician that saw him earlier today and she was told that he needed to come back for hospital admission. The patient is currently chest pain-free and is asymptomatic at this time. He has no complaints. He states that he is not sure why he was asked to come to the ED. The chest pain is pleuritic in nature, worse on inspiration. Associated symptoms: Deny abdominal pain, diaphoresis, dyspnea, fever(s), leg edema, nausea, palpitations, sense of impending doom, syncope or vomiting Review of Systems General: Reports: 10 or more systems reviewed and unremarkable except in HPI and below Const: Denies: fever(s) or diaphoresis Card: Denies: palpitations or syncope Resp: Denies: dyspnea GI: Denies: abdominal pain, nausea or vomiting [facility] ED PFSH: Medical History (Reviewed 04/30/21 @ 22:21 by Kuldip Aponte MD, [facility] [place]) Asthma Chronic obstructive pulmonary disease Degenerative lumbar spinal stenosis Hypercholesteremia Hypertension Social History (Reviewed 04/30/21 @ 22:21 by Kuldip Aponte MD, [facility] [place]) Smoking and tobacco status: never smoked Alcohol intake: never Physical Exam Const: COMMON NORMALS: no acute distress, average body habitus, patient oriented x3, no limitations, healthy appearing, alert and well nourished HENMT: COMMON NORMALS: normocephalic, atraumatic and moist oral mucous membranes HEAD & SCALP: normocephalic and atraumatic Neck/C-Spine: COMMON NORMALS: no meningeal signs and no JVD Chest: COMMONS NORMALS: normal inspection of the chest and normal palpation of entire chest wall Resp: COMMON NORMALS: normal respiratory effort, No retractions, No use of accessory muscles, clear to auscultation bilaterally and percussion normal AUSCULTATION: clear to auscultation bilaterally PERCUSSION: percussion normal Cardio: COMMON NORMALS: no JVD, regular rate, regular rhythm, S1 normal heart sound present, S2 normal heart sound present, No gallops present (Cardio), No clicks present (Cardio), No murmurs present (Cardio), No rub (Cardio) and Perip heral pulses 2+ throughout RATE: regular rate RHYTHM: regular rhythm HEART SOUNDS: S1 normal heart sound present and S2 normal heart sound present PERIPHERAL PULSES: Peripheral pulses 2+ throughout GI: COMMON NORMALS: Normal to inspection, nondistended, normoactive bowel sounds present, Soft to palpation, non-tender, No hepatosplenomegaly present, no masses and no bruits PALPATION: Yes Soft to palpation and Yes No hepatosplenomegaly present Extremity: COMMON NORMALS: normal to inspection, full ROM, capillary refill normal, no calf tenderness and no pedal edema Neuro: COMMON NORMALS: patient oriented x3 SENSORIUM/ORIENTATION: Yes alert MENINGEAL SIGNS: Yes no meningeal signs Skin: COMMON NORMALS: no rashes or lesions noted, no wounds, turgor normal, no jaundice, no petechiae and no mottling GENERAL SKIN EXAM: no rashes or lesions noted and turgor normal Course Reevaluation(s): Reevaluation #1: Discussed his troponin levels with him and his . Also discussed his prior labs today, including the CTA of his lungs. Troponin is not significantly changed from earlier today. CTA shows bilateral pneumonia with left pleural effusion. I explained that I believe the pleuritic chest pain may be secondary to the effusion. However because his troponin is mildly elevated he will benefit from a stress test as he is heart score is 4. Since it has been about 3 weeks since his Covid diagnosis that he still has persistent pneumonia with a likely parapneumonic effusion he may have a superimposed bacterial infection and so he will be treated with oral ant ibiotics. Patient and his voiced understanding and they are in agreement with the plan. Time: 20:54 Vital Signs: Vital signs: Vital Signs Temperature 98.3 F 04/30/21 18:05 Pulse Rate 85 04/30/21 21:00 Respiratory Rate 15 04/30/21 21:00 Blood Pressure 117/73 04/30/21 21:00 Pulse Oximetry 93 04/30/21 21:00 MDM - Chest Pain MDM Narrative: Medical decision making narrative: 65-year-old male who presents to the emergency department after having asked to return. Admitted earlier today for chest pain. Work-up is negative for acute coronary syndrome but he has elevated troponin and he is heart score is 4, meaning he is a moderate risk of a major adverse cardiac event within the next 6 weeks, about 17%. He will therefore be discharged home and will obtain an outpatient stress test. He was also discharged home on oral antibiotics for possible superimposed bacterial infection. He is to follow-up with his primary care provider, an outpatient stress test was ordered by me. Medical Records: Attestation: I reviewed the patient's medical records. Lab Data: Attestation: I reviewed the patient's lab results. Labs: Lab Results 04/30/21 Range/Units 19:50 Troponin T Gen 5 n g/L 25 H (0-15) ng/L EKG Data^: EKG 1: Attestation: I personally reviewed and interpreted this EKG as follows: EKG interpretation date: 04/30/21 EKG interpretation time: 19:49 Prior EKG tracings: available for review Interpretation: Sinus rhythm. Heart rate [address] changes. Discharge Plan Discharge Patient Disposition: Home Clinical Impression: Pleural effusion Pneumonia Qualifiers: Pneumonia type: due to unspecified organism Laterality: bilateral Lung location: unspecified part of lung Qualified Code(s): J18.9 - Pneumonia, unspecified organism Chest pain Qualifiers: Chest pain type: unspecified Qualified Code(s): R07.9 - Chest pain, unspecified Condition: Stable Prescriptions: New amoxicillin 500 mg tablet 1,000 mg PO Q8H 7 Days Qty: 42 RF: 0 azithromycin 250 mg tablet See Rx Instructions .ROUTE .COMPLEX Qty: 6 RF: 0 Continued fluticasone propion-salmeterol [Advair Diskus] 250-50 mcg/dose blister with device 1 inh INHALATION BID RF: 0 nitroglycerin [Nitrostat] 0.4 mg tablet, sublingual 0.4 mg SUBLINGUAL Q5M PRNRF: 0 atorvastatin 20 mg tablet 20 mg PO DAILY Qty: 90 RF: 2 lisinopril-hydrochlorothiazide 20-25 mg tablet 1 tab PO DAILY Qty: 90 RF: 3 prednisone 10 mg tablet 10 mg PO BID 30 Days Qty: 60 RF: 4 Zyrtec 10 mg capsule 10 mg PO DAILY 15 Days Qty: 15 RF: 0 amlodipine 5 mg tablet 5 mg PO BID 90 Days Qty: 180 RF: 3 nystatin 100,000 unit/mL suspension 5 ml PO TID 7 Days Qty: 200 RF: 0 methotrexate sodium 2.5 mg tablet 10 mg PO DAILY Qty: 60 RF: 1 albuterol sulfate [ProAir HFA] 90 mcg/actuation HFA aerosol inhaler See Rx Instructions .ROUTE .COMPLEX Qty: 8.5 RF: 4 hydrocodone-acetaminophen 7.5-325 mg tablet 1 tab PO TID PRN (Reason: pain) 30 Days Qty: 90 RF: 0 Percocet 5-325 mg tablet 1 tab PO TID PRN (Reason: pain) Qty: 12 RF: 0 ibuprofen 400 mg tablet 400 mg PO TID PRN (Reason: pain) Qty: 21 RF: 0 Discharge Orders: Discharge ED (Routine); Ordered 04/30/21 Ordered By: Kuldip Aponte Referrals: Leila Weiss MD [Primary Care Provider] - 1-3 days Discharge Diet: Usual diet Discharge Activity: Increase activity as tolerated Patient Instructions: Chest Pain (ED), Pleural Effusion (ED), Pneumonia (ED) Activity Restrictions/Additional Instructions: Return for any new or worsening symptoms. Follow-up with your primary care provider within 3 days. Take antibiotics as prescribed. You will be contacted by case management next week to schedule an appointment for a stress test. This will help further evaluate your heart. Coding Level of Care Code ED Senior Web Applications Developer for Mj Paredes
[2021-04-30 20:09] VITALS: BP 130/74; PULSE 86; RESP 15; O2SAT 93
[2021-04-30 20:33] LABS: Troponin T (5th) Once 25 ng/L (0-15)
[2021-04-30 21:00] VITALS: BP 117/73; PULSE 85; RESP 15; O2SAT 93
--- NOTE | 2021-05-02 08:57 | PC.NURSE ---
Patient notified of covid test results at this time
--- NOTE | 2021-05-03 11:47 | DCPLANNER ---
Addendum entered by Pauline Parra 05/04/21 08:58: clinical education manager spoke with patient about getting a follow up appointment with primary care. Patient stated that he had an appointment with his primary care physician scheduled. Original Note: clinical education manager had message to schedule a follow up appointment for patient with heart care, and to schedule an outpatient stress test for patient. clinical education manager called [facility], spoke with Sakina, gave clinic patients information. A follow up appointment was scheduled for Sunday, May 11, 2021 at 2:15. clinical education manager called patient and gave patient the appointment information. clinical education manager also had an outpatient order for a stress test. clinical education manager faxed signed order to centralized scheduling, who will call patient with appointment information.
--- NOTE | 2021-05-18 11:19 | DCPLANNER ---
Patient had a followup appointment scheduled for 05.11.[address] Portillo at [facility] - patient did attend appointment.
--- NOTE | 2021-05-23 14:34 | DCPLANNER ---
Patient had a follow up appointment scheduled for a stress test - the stress test was cancelled per patient request.
== END 2021-04-30 21:07 | disposition home or self-care (01) ==
PROVIDERS: Emergency Provider Family Medicine; PCP Family Medicine
DX: J18.9 Pneumonia, unspecified organism (principal); J90 Pleural effusion, not elsewhere classified; R07.9 Chest pain, unspecified; J44.9 Chronic obstructive pulmonary disease, unspecified; E78.00 Pure hypercholesterolemia, unspecified; I10 Essential (primary) hypertension; Z86.16 Personal history of COVID-19
CPT/HCPCS: 84484; 99283

== ENCOUNTER 2021-05-09 09:49 | Emergency (ER) | payer MEDICARE, SELFPAY ==
[2021-05-09] VITALS (7 sets, daily range): BP systolic 130–137; BP diastolic 79–86; PULSE 82–90; RESP 16–19; TEMP 36.9; O2SAT 90–100; BMI 24.9
--- NOTE | 2021-05-09 10:21 | XRR_ITS ---
PROCEDURE INFORMATION: Exam: XR Chest Exam date and time: 05/09/2021 10:21 AM Age: 65 years old Clinical indication: Dyspnea; Patient HX: SOB; Additional info: Dyspnea/cough TECHNIQUE: Imaging protocol: XR of the chest. Views: 1 view. COMPARISON: CR (CHEST, ) 04/30/2021 9:12 AM FINDINGS: Lungs: There is stable extensive bilateral pulmonary infiltrates especially in the left lung. Pleural spaces: Unremarkable. No pleural effusion. No pneumothorax. Heart/Mediastinum: Unremarkable. No cardiomegaly. Bones/joints: Unremarkable. XR/XR chest 1V portable [id number] IMPRESSION: Stable extensive pulmonary infiltrates .
--- NOTE | 2021-05-09 10:22 | CTR_ITS ---
PROCEDURE INFORMATION: Exam: CTA Chest With Contrast Exam date and time: 05/09/2021 10:22 AM Age: 65 years old Clinical indication: Dyspnea; Additional info: Hypoxia, chest pain TECHNIQUE: Imaging protocol: Computed tomographic angiography of the chest with contrast. 3D rendering (Not supervised by radiologist): MIP and/or 3D reconstructed images were created by the technologist. Radiation optimization: All CT scans at this facility use at least one of these dose optimization techniques: automated exposure control; mA and/or kV adjustment per patient size (includes targeted exams where dose is matched to clinical indication); or iterative reconstruction. Contrast material: OMNI 350; Contrast volume: 65 ml; Contrast route: INTRAVENOUS (IV); COMPARISON: CT angio chest PE protcl [id number] 04/30/2021 11:27 AM RADIATION DOSE METRICS: Total DLP (mGy-cm): 529.17 FINDINGS: Pulmonary arteries: Normal. No pulmonary emboli. Aorta: Unremarkable. No aortic aneurysm. No aortic dissection. Lungs: The extensive bilateral interstitial pulmonary infiltrates consistent with interstitial pneumonia. There is left lower lobe atelectasis. Pleural spaces: There is moderate left pleural effusion. No pneumothorax is seen. Heart: The heart is not enlarged. There is calcification of the coronary arteries. Mediastinal space: Small sliding hiatal hernia. Lymph nodes: Unremarkable. No enlarged lymph nodes. Spleen: Multiple benign calcified granulomas are present in the spleen. Bones/joints: Degenerative changes are present in the spine with scattered sclerosis and osteophytes. Soft tissues: Unremarkable. CT/CT angio chest PE protcl [id number] IMPRESSION: 1. No evidence of pulmonary embolus or aortic aneurysm/dissection. 2. Extensive bilateral pulmonary infiltrates unchanged. 3. Left lower lobe atelectasis with left pleural effusion. This effusion has increased in size since previous study. Radiation Dose CTDIVOL = (mGy): DLP = 529.17 (mGy-cm)
--- NOTE | 2021-05-09 10:40 | ED_ITS ---
HPI - Chest Pain General: Chief Complaint: Chest Pain Stated Complaint: Chest Pain, Diff Breathing Time Seen by Provider: 05/09/21 10:17 History of Present Illness: HPI narrative: 65-year-old male presents emergency room with pleuritic-like chest pain on the left side worsening takes a deep breath he is requiring oxygen he normally does not. He reports he had a positive Covid test in early April and was transferred to [facility] consistent with the records from the ER. He was discharged from there he was seen on the a repeat Covid test was done and the PCR was positive. He states the Covid test he done initially in early April was done at a local [facility] affiliated clinic. MD complaint: chest pain and chest discomfort Onset (ago): hour(s) Timing of current episode: constant Onset: during rest and awoke with symptoms Pain location: left chest Pain radiation: none Severity: severe Quality: sharp Relieving factors: rest Exacerbating factors: inspiration Associated symptoms: Deny abdominal pain, diaphoresis, dyspnea, fever(s), leg edema, nausea, palpitations, sense of impending doom, syncope or vomiting Treatment prior to arrival: none Review of Systems Const: Denies: fever(s) or diaphoresis ENMT: Denies: throat pain, ear or mastoid pain, nasal discharge or nasal congestion Card: Denies: palpitations or syncope Resp: Denies: dyspnea GI: Denies: abdominal pain, nausea or vomiting : Denies: flank pain, dysuria, urinary frequency or urinary urgency Skin/Breast: Denies: rash or pruritus [facility] ED PFSH: Medical History Asthma Chronic obstructive pulmonary disease Degenerative lumbar spinal stenosis Hypercholesteremia Hypertension Social History Smoking and tobacco status: never smoked Alcohol intake: never Physical Exam Const: COMMON NORMALS: no acute distress GENERAL APPEARANCE: cooperative an d comfortable ORIENTATION/CONSCIOUSNESS: Yes awake, Yes oriented to person, Yes oriented to place and Yes oriented to time HENMT: COMMON NORMALS: normocephalic, atraumatic and hearing grossly normal bilaterally HEAD & SCALP: normocephalic and atraumatic Neck/C-Spine: COMMON NORMALS: no JVD Resp: COMMON NORMALS: normal respiratory effort, No retractions, No use of accessory muscles and clear to auscultation bilaterally AUSCULTATION: clear to auscultation bilaterally Cardio: COMMON NORMALS: no JVD, regular rate, regular rhythm and No murmurs present (Cardio) RATE: regular rate RHYTHM: regular rhythm GI: COMMON NORMALS: Soft to palpation and No hepatosplenomegaly present AUSCULTATION: Yes normoactive bowel sounds PALPATION: Yes Soft to palpation, No Tenderness to palpation present (GI), No Guarding due to palpation present (GI) and Yes No hepatosplenomegaly present Extremity: COMMON NORMALS: normal to inspection, capillary refill normal, no clubbing, cyanosis or edema, no calf tenderness and no pedal edema Neuro: SENSORIUM/ORIENTATION: Yes oriented to person, Yes oriented to place and Yes oriented to time Skin: COMMON NORMALS: no rashes or lesions noted GENERAL SKIN EXAM: no rashes or lesions noted Course Vital Signs: Vital signs: Vital Signs Temperature 98.4 F 05/09/21 10:08 Pulse Rate 82 05/09/21 13:37 Respiratory Rate 17 05/09/21 13:37 Blood Pressure 137/86 05/09/21 12:29 Pulse Oximetry 98 05/09/21 13:37 MDM - Chest Pain MDM Narrative: Medical decision making narrative: Reviewed imaging and labs and x-ray. Patient has a left pleural effusion which was present previously persistent infiltrates. [facility]. His pleuritic chest pain is pleuritic in nature we will start him on some antibiotics continue to use the hydrocodone as needed follow-up with primary care doctor later this week for repeat x-ray if he has any worsening symptoms return. Lab Data: Labs: Lab Results 05/09/21 05/09/21 05/09/21 Range/Units 10:34 10:41 10:41 WBC 9.5 (4.0-10.0) 10^3/ uL RBC 3.95 L (4.1-5.3) 10^6/u L Hgb 11.9 (11.7-16.6) g/dL Hct 37.1 L (42.0-52.0) % MCV 93.9 (80-94) fl MCH 30.1 (28.0-34.0) pg MCHC 32.1 (30.0-36.0) g/dL RDW 13.2 (12.1-15.1) % Plt Count 439 H (130-400) 10^3/c mm MPV 9.1 (7.4-10.4) fL Neut % (Auto) 70.7 % Lymph % (Auto) 13.4 % [place] % (Auto) 9.9 % Eos % (Auto) 0.9 % Baso % (Auto) 0.6 % Neut # (Auto) 6.72 (1.8-7.7) 10^3/u L Lymph # (Auto) 1.3 (0.8-4.8) 10^3/u L [place] # (Auto) 0.9 (0.2-0.9) 10^3/u L Eos # (Auto) 0.1 (0.0-0.8) 10^3/u L Baso # (Auto) 0.1 (0.0-0.1) 10^3/u L Nucleated RBC % (a uto) 0 % Nucleated RBCs # 0.0 /100WBC Specimen Type Arterial Sample Site Radial, left ABG pH 7.47 H (7.35-7.45) ABG pCO2 37.7 (35-45) mmHg ABG pO2 80.4 (80.0-100.0) mmH g ABG HCO3 27.5 H (22-26) mmol/L ABG O2 Saturation 97.3 ABG Base Excess 3.7 H (-2.0-2.0) mmol/ L Broderick Test Pos A-a O2 Gradient 9.4 (5-10) mmHg Hematocrit 36.1 L (42-52) % Hgb O2 Saturation 95.7 (95-100) % Carboxyhemoglobin 1.2 (0.4-20.1) %THgb Methemoglobin 0.4 (0.4-1.5) % Total Hemoglobin 11.8 L (14-18) g/dL Sodium 139.0 137 (131-143) mmol/L Potassium 4.0 4.4 (3.5-5.0) mmol/L Glucose 97.0 88 (70-115) mg/dL Ionized Calcium 1.2 (1.1-1.4) mmol/L O2 Delivery Device Nc FiO2 28.0 % Deputy District Customs Director ID Cak Chloride 98 (98-107) mmol/L Carbon Dioxide 28 (22-29) mmol/L Anion Gap 15.4 (5-19) BUN 8 (8-23) mg/dL Creatinine 0.7 (0.7-1.2) mg/dL GFR Calculation 113.2 (90-130) mL/min Calculated Osmolal ity 282 L (285-295) mOsm/k g Calcium 8.8 (8.5-10.5) mg/dL Total Bilirubin 0.5 (0.15-1.2) mg/dL AST 13 (0-40) U/L ALT 25 (0-41) U/L Alkaline Phosphata se 94 (40-130) IU/L Troponin T Baselin e (0-15) ng/L Troponin T 120 Min yee (0-15) ng/L Delta Troponin T (0-10) ABS# Total Protein 5.9 L (6.6-8.7) g/dL Albumin 3.6 (3.5-5.2) g/dL Globulin 2.3 (1.3-4.6) g/dL 05/09/21 05/09/21 Range/Units 10:41 12:45 WBC (4.0-10.0) 10^3/ uL RBC (4.1-5.3) 10^6/u L Hgb (11.7-16.6) g/dL Hct (42.0-52.0) % MCV (80-94) fl MCH (28.0-34.0) pg MCHC (30.0-36.0) g/dL RDW (12.1-15.1) % Plt Count (130-400) 10^3/c mm MPV (7.4-10.4) fL Neut % (Auto) % Lymph % (Auto) % [place] % (Auto) % Eos % (Auto) % Baso % (Auto) % Neut # (Auto) (1.8-7.7) 10^3/u L Lymph # (Auto) (0.8-4.8) 10^3/u L [place] # (Auto) (0.2-0.9) 10^3/u L Eos # (Auto) (0.0-0.8) 10^3/u L Baso # (Auto) (0.0-0.1) 10^3/u L Nucleated RBC % (a uto) % Nucleated RBCs # /100WBC Specimen Type Sample Site ABG pH (7.35-7.45) ABG pCO2 (35-45) mmHg ABG pO2 (80.0-100.0) mmH g ABG HCO3 (22-26) mmol/L ABG O2 Saturation ABG Base Excess (-2.0-2.0) mmol/ L Broderick Test A-a O2 Gradient (5-10) mmHg Hematocrit (42-52) % Hgb O2 Saturation (95-100) % Carboxyhemoglobin (0.4-20.1) %THgb Methemoglobin (0.4-1.5) % Total Hemoglobin (14-18) g/dL Sodium (131-143) mmol/L Potassium (3.5-5.0) mmol/L Glucose (70-115) mg/dL Ionized Calcium (1.1-1.4) mmol/L O2 Delivery Device FiO2 % Deputy District Customs Director ID Chloride (98-107) mmol/L Carbon Dioxide (22-29) mmol/L Anion Gap (5-19) BUN (8-23) mg/dL Creatinine (0.7-1.2) mg/dL GFR Calculation (90-130) mL/min Calculated Osmolal ity (285-295) mOsm/k g Calcium (8.5-10.5) mg/dL Total Bilirubin (0.15-1.2) mg/dL AST (0-40) U/L ALT (0-41) U/L Alkaline Phosphata se (40-130) IU/L Troponin T Baselin e 19 H (0-15) ng/L Troponin T 120 Min yee 18.94 H (0-15) ng/L Delta Troponin T -0.06 L (0-10) ABS# Total Protein (6.6-8.7) g/dL Albumin (3.5-5.2) g/dL Globulin (1.3-4.6) g/dL Discharge Plan Discharge Patient Disposition: Home Clinical Impression: Chest pain, pleuritic Condition: Stable Prescriptions: New levofloxacin 500 mg tablet 500 mg PO DAILY 10 Days Qty: 10 RF: 0 No Action nitroglycerin [Nitrostat] 0.4 mg tablet, sublingual 0.4 mg SUBLINGUAL Q5M PRN (Reason: Chest Pain) RF: 0 amlodipine 5 mg tablet 5 mg PO BID 90 Days Qty: 180 RF: 3 hydrocodone-acetaminophen 7.5-325 mg tablet 1 tab PO TID PRN (Reason: pain) 30 Days Qty: 90 RF: 0 oxycodone-acetaminophen [Percocet] 5-325 mg tablet 1 tab PO TID PRN (Reason: pain) Qty: 12 RF: 0 ibuprofen 400 mg tablet 400 mg PO TID PRN (Reason: pain) Qty: 21 RF: 0 Protonix 40 mg Tablet,Delayed Release (Dr/Ec) 40 mg PO BID PRN (Reason: Acid Reflux) RF: 0 prednisone 10 mg tablet 10 mg PO BID RF: 0 atorvastatin 20 mg tablet 20 mg PO QAM RF: 0 ProAir HFA 90 mcg/actuation HFA aerosol inhaler 2 puff inhalation QID PRN (Reason: Shortness Of Breath) RF: 0 Zyrtec 10 mg capsule 10 mg PO DAILY PRN (Reason: Allergy Symptoms) RF: 0 Discharge Orders: Discharge ED (Routine); Ordered 05/09/21 Ordered By: Steve Lauren Referrals: Leila Weiss MD [Primary Care Provider] - Discharge Diet: Usual diet Discharge Activity: Increase activity as tolerated Patient Instructions: Opioid Safety Coding Level of Care Code ED Butter Grader for Mj Fwd Exam Comprehensive
[2021-05-09 10:45] LABS: ABG PCO2 37.7 mmHg (35-45); ABG PH Result 7.47 (7.35-7.45); Alveolar-Arterial Oxygen Gradi 9.4 mmHg (5-10); Arterial Blood Gas Hematocrit 36.1 % (42-52); Base Excess ABG 3.7 mmol/L (-2.0-2.0); Blood Gas Allen Test Pos; Blood Gas Operator Identificat CAK; Blood Gas Sample Site Radial, left; Blood Gas Sample Type Arterial; Carboxyhemoglobin 1.2 %THgb (0.4-20.1); HCO3 ABG 27.5 mmol/L (22-26); HGB O2 Sat 95.7 % (95-100); Ionized Calcium Level - ABG 1.2 mmol/L (1.1-1.4); Methemoglobin 0.4 % (0.4-1.5); Oxygen Device NC; Oxygen Saturation ABG 97.3; PO2 ABG 80.4 mmHg (80.0-100.0); Total Hemoglobin 11.8 g/dL (14-18)
[2021-05-09] MEDS: iohexol 350 mg/mL 100 mL Btl IV (10:54)
[2021-05-09] MEDS: morphine 4 mg/mL SDV 1 mL IVP ×2 (11:00→12:46)
[2021-05-09] MEDS: ondansetron 2 mg/ML SDV 2 mL 4 MG IVP (11:01)
[2021-05-09 11:02] LABS: Basophils # 0.1 10^3/uL (0.0-0.1); Basophils % 0.6 %; Eosinophils # 0.1 10^3/uL (0.0-0.8); Eosinophils % 0.9 %; Hematocrit 37.1 % (42.0-52.0); Hemoglobin 11.9 g/dL (11.7-16.6); Lymphocytes # 1.3 10^3/uL (0.8-4.8); Lymphocytes % 13.4 %; Mean Corpuscular HGB Conc 32.1 g/dL (30.0-36.0); Mean Corpuscular Hemoglobin 30.1 pg (28.0-34.0); Mean Corpuscular Volume 93.9 fl (80-94); Mean Platelet Volume 9.1 fL (7.4-10.4); Monocytes # 0.9 10^3/uL (0.2-0.9); Monocytes % 9.9 %; Neutrophils # 6.72 10^3/uL (1.8-7.7); Neutrophils % 70.7 %; Nucleated Red Blood Cells % 0 %; Platelet Count 439 10^3/cmm (130-400); Red Blood Count 3.95 10^6/uL (4.1-5.3); Red Cell Distribution Width 13.2 % (12.1-15.1); White Blood Count 9.5 10^3/uL (4.0-10.0)
--- NOTE | 2021-05-09 11:15 | PC.PHAR ---
pt states he takes care of his own medications-rx last filled 09/23/20 90d/s for atorvastatin 20mg pt states he had a build up of this medication and is still taking it-pt states he has one tab left of his percocet
[2021-05-09 11:17] LABS: Troponin(5th) Baseline 19 ng/L (0-15)
[2021-05-09 11:20] LABS: Alanine Aminotransferase 25 U/L (0-41); Albumin Level 3.6 g/dL (3.5-5.2); Alkaline Phosphatase 94 IU/L (40-130); Anion Gap 15.4 (5-19); Aspartate Amino Transferase 13 U/L (0-40); Blood Urea Nitrogen 8 mg/dL (8-23); Calcium 8.8 mg/dL (8.5-10.5); Carbon Dioxide 28 mmol/L (22-29); Chloride 98 mmol/L (98-107); Globulin 2.3 g/dL (1.3-4.6); Glomerular Filtration Rate 113.2 mL/min (90-130); Glucose 88 mg/dL (65-115); Osmolality Calculated 282 mOsm/kg (285-295); Potassium 4.4 mmol/L (3.5-5.1); Sodium 137 mmol/L (136-145); Total Bilirubin 0.5 mg/dL (0.15-1.2); Total Protein 5.9 g/dL (6.6-8.7)
--- NOTE | 2021-05-09 12:21 | ECG_ITS ---
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
[2021-05-09 13:25] LABS: Troponin 5 2HR 18.94 ng/L (0-15)
[2021-05-09 13:45] LABS: Troponin 5 2HR Delta -0.06 ABS# (0-10)
== END 2021-05-09 14:05 | disposition home or self-care (01) ==
PROVIDERS: Emergency Provider Family Medicine; PCP Family Medicine
DX: R07.89 Other chest pain (principal); J44.9 Chronic obstructive pulmonary disease, unspecified; I10 Essential (primary) hypertension
CPT/HCPCS: 36600; 71045; 71275; 80051; 80053; 82330; 82805; 84484; 85025; 87040; 93005; 96374; 96375; 96376; 99284; J2270; J2405; Q9967

== ENCOUNTER 2021-05-27 07:45 | Outpatient (CLI) | payer MEDICARE, SELFPAY ==
--- NOTE | 2021-05-27 07:57 | XR_ITS ---
WS: [email or web address] PA and lateral chest, Clinical Data: f/u exam for covid pneumonia Comparison: Portable chest, 05/09/2021. Findings: The extensive bilateral pulmonary infiltrates have improved greatly. There is still residua l opacity in the midportion of the left lung. There is left pleural reaction. The heart size is christopher l. No nodules, masses or effusions are seen. No pneumothorax is present. XR/XR chest 2V* [id number] Impression: Significant clearing of bilateral pulmonary opacities with the greatest residua l in the left midlung.
--- NOTE | 2021-05-27 08:00 | USCV_ITS ---
Robert Landaverde Age: 65 Gender: M : 1955 Exam Date: 05/27/2021 08:13 Ordering Phys: Christofer Vaz M.D ([email or web address]) Technologist: DAVID Exam Location: [facility] Indication: CHEST PAIN BP: 140 / 90 HR: 74 Rhythm: Sinus Technical Quality: Adequate MEASUREMENTS (Male / Female) Normal Values 2D ECHO LV Diastolic Diameter PLAX 4.5 cm 4.2 - 5.9 / 3.9 - 5.3 cm LV Systolic Diameter PLAX 3.2 cm IVS Diastolic Thickness 1.5 cm 0.6 - 1.0 / 0.6 - 0.9 cm IVS Systolic Thickness 2.2 cm LVPW Diastolic Thickness 1.6 cm 0.6 - 1.0 / 0.6 - 0.9 cm LVPW Systolic Thickness 1.7 cm LVOT Diameter 2.0 cm LV Ejection Fraction 2D Teich 56.0 % LV Ejection Fraction MOD 2C 30.0 % LV Ejection Fraction 2C AL 30.9 % LA Diameter 3.1 cm LA Width 3.1 cm LA Height 4.2 cm RA Width 4.0 cm RA Height 4.2 cm Aorta at Sinotubular Diameter 2.6 cm M-MODE Aortic Annulus Diameter 2.8 cm LA Ao Ratio MM 1.1 MV E Point Septal Separation 0.5 cm DOPPLER AV Peak Velocity 167.0 cm/s LVOT Peak Velocity 127.0 cm/s AV Area Cont Eq vti 2.7 cm squared AV Area Cont Eq pk 2.4 cm squared MV Peak Velocity 93.0 cm/s MV Area PHT 3.3 cm squared Mitral E to A Ratio 0.9 MV E' Velocity 43.0 cm/s Mitral E to MV E' Ratio 7.5 Mitral E to LV E' Lateral Ratio 6.0 Mitral E to LV E' Septal Ratio 10.1 TR Peak Velocity 288.4 cm/s TR Peak Gradient 33.3 mmHg TR Mean Velocity 229.2 cm/s TR Mean Gradient 22.6 mmHg TR Velocity Time Integral 69.5 cm TV Peak E Velocity 45.0 cm/s Right Atrial Pressure 3.0 mmHg Pulmonary Artery Systolic Pressu 36.3 mmHg PV Peak Velocity 93.0 cm/s RV Acceleration Time 0.1 s RV Ejection Time 0.3 s RV AcT/ET 0.3 FINDINGS Left Ventricle Normal left ventricular size. LV systolic function is normal with EF of 55-60%. No regional wall motion abnormalities. Normal diastolic filling pattern. Right Ventricle The right ventricle is normal in size and function. Right Atrium The right atrium is normal in size. Left Atrium The left atrium is normal in size. Mitral Valve Structurally normal mitral valve without significant stenosis or prolapse. There is trace mitral regurgitation. Aortic Valve Structurally normal aortic valve without significant sclerosis or stenosis. There is no aortic regurgitation. Tricuspid Valve Structurally normal tricuspid valve without significant stenosis. Mild regurgitation. RVSP is 35-40mmHg. Mild pulmonary hypertension is noted Pulmonic Valve Structurally normal pulmonic valve without significant stenosis. There is no pulmonic regurgitation. Pericardium Normal pericardium without effusion. Aorta Normal ascending aorta dimension. CONCLUSIONS LV systolic function is normal with EF of 55-60% Diastolic function is normal Trace mitral regurgitation Mild tricuspid regurgitation Mild pulmonary hypertension is noted No comparison studies are available Christofer Vaz MD (Electronically Signed) Final Date: 02 June 2021 09:10 S
== END 2021-05-27 07:46 | disposition home or self-care (01) ==
LOC: RAD 07:48
PROVIDERS: PCP Family Medicine; Visit Provider Internal Medicine
DX: R07.81 Pleurodynia (principal); R07.9 Chest pain, unspecified; J18.9 Pneumonia, unspecified organism; I08.1 Rheumatic disorders of both mitral and tricuspid valves; I27.20 Pulmonary hypertension, unspecified
CPT/HCPCS: 71046; 93306

== ENCOUNTER → 2021-06-26 14:44 | Outpatient (BNVA) | payer MEDICARE, SELFPAY | PROVIDERS: PCP Family Medicine; Visit Provider Nurse Practitioner | DX: R50.9 Fever, unspecified (principal) | CPT/HCPCS: 80048; 85025; 87400 ==

== ENCOUNTER → 2021-06-28 15:42 | Outpatient (BNVA) | payer MEDICARE, SELFPAY | PROVIDERS: PCP Family Medicine; Visit Provider Family Medicine | DX: U07.1 COVID-19 (principal); J12.82 Pneumonia due to coronavirus disease 2019 | CPT/HCPCS: 71046 ==

== ENCOUNTER 2021-07-01 11:23 | Outpatient (CLI) | payer MEDICARE, SELFPAY ==
--- NOTE | 2021-07-01 11:00 | CT_ITS ---
WS: [email or web address] Exam: CT chest wo con [id number] Date/Time of Exam: 07/01/2021 11:26 AM Reason For Exam: progressive dyspnea w fever DLP: 654.[address] scans at [facility] use at least one of these dose optimization techniques: automated e xposure control; mA and/or kV adjustment per patient size (includes targeted exams where dose is matc hed to clinical indication); or iterative reconstruction. Comparison 05/09/2021. Large loculated fluid collection noted in the posterior left lower pleural cavity measures 15 x 7.7 c m. This is most suspicious for lung abscess. Empyema also possible but felt to be less likely. There are areas of residual fibrous scarring in both lungs secondary to prior pneumonia. The airway is espinoza nt. The thoracic aorta is normal in caliber. Coronary artery calcifications. No significant lymphaden opathy in the chest. No pneumothorax seen. No pericardial effusion. No significant pleural effusion. Regional bony structures are intact. Pulmonary hyperinflation which may indicate obstructive lung dis ease. The chest wall is intact. CT sections the upper abdomen demonstrate no significant abnormal fin ding. CT/CT chest wo con [id number] IMPRESSION: 1. Large loculated fluid collection noted in the posterior left lower pleural c avity that measures 15 x 7.7 cm. The appearance is most suggestive of a left lo wer lobe lung abscess. Empyema might also be considered but is felt to be less likely. 2. Areas of residual fibrous scarring in both lungs secondary to prior pneumoni a. 3. No significant lymphadenopathy in the chest. 4. Pulmonary hyperinflation which may indicate COPD.
== END 2021-07-01 11:24 | disposition home or self-care (01) ==
PROVIDERS: PCP Family Medicine; Visit Provider Family Medicine
DX: R06.00 Dyspnea, unspecified (principal); R50.9 Fever, unspecified
CPT/HCPCS: 71250

== ENCOUNTER → 2021-07-30 12:00 | Outpatient (BNVA) | payer MEDICARE, SELFPAY | PROVIDERS: PCP Family Medicine; Visit Provider Family Medicine | DX: R06.02 Shortness of breath (principal); R50.9 Fever, unspecified; Z68.23 Body mass index [BMI] 23.0-23.9, adult; Z71.89 Other specified counseling; J90 Pleural effusion, not elsewhere classified | CPT/HCPCS: 71046; 87400 ==

== ENCOUNTER 2021-09-27 07:01 | Outpatient (CLI) | payer MEDICARE, SELFPAY ==
--- NOTE | 2021-09-27 07:00 | CT_ITS ---
WS: [email or web address] CT CHEST TECHNIQUE: Noncontrast CT of the chest with coronal and sagittal reformatted images. CLINICAL INFORMATION: assess resolution of pneumonia COMPARISON: July 01, 2021 DLP: 120.[address] scans at [facility] use at least one of these dose optimization techniques: automated e xposure control; mA and/or kV adjustment per patient size (includes targeted exams where dose is matc hed to clinical indication); or iterative reconstruction. FINDINGS: Hyperinflation. Advanced chronic emphysematous changes. Previously described left lower lobe abscess/ empyema has nearly resolved. Small amount of residual left lower lobe fluid with a small amount of ad jacent cavitation. Today this measures approximately 3.1 x 3.8 cm. Findings compatible with interval response to therapy. Similar-appearing scattered fibrosis and subsegmental atelectasis in both lungs. Normal caliber thoracic aorta. Coronary calcification. No axillary lymphadenopathy. No mediastinal or hilar lymphadenopathy. Adrenal glands are normal. Splenic artery calcification. Normal GE junction. Mild fatty atrophy of th e pancreas. CT/CT chest [facility] [id number] IMPRESSION: 1. Significant interval improvement with near resolution of the left lower lob e abscess/empyema. Small amount of residual left lower lobe pleural fluid and p leural thickening with a small amount of cavitation. This measures approximatel y 3.1 x 3.8 cm today compared to 15 x 7 cm previous. 2. No other significant interval changes. 3. Advanced chronic emphysematous changes. 4. No mediastinal or hilar lymphadenopathy. 5. Coronary calcification.
== END 2021-09-27 07:02 | disposition home or self-care (01) ==
LOC: RAD 07:04
PROVIDERS: PCP Family Medicine; Visit Provider Internal Medicine Pulmonary Disease
DX: U07.1 COVID-19 (principal); J12.82 Pneumonia due to coronavirus disease 2019; I25.10 Atherosclerotic heart disease of native coronary artery without angina pectoris
CPT/HCPCS: 71250

== ENCOUNTER → 2021-10-12 08:41 | Outpatient (BNVA) | payer MEDICARE, SELFPAY | PROVIDERS: PCP Family Medicine; Visit Provider Internal Medicine Rheumatology | DX: M19.041 Primary osteoarthritis, right hand (principal); M19.042 Primary osteoarthritis, left hand; Z79.899 Other long term (current) drug therapy; Z79.52 Long term (current) use of systemic steroids; J18.9 Pneumonia, unspecified organism; J91.8 Pleural effusion in other conditions classified elsewhere; M06.9 Rheumatoid arthritis, unspecified; M19.90 Unspecified osteoarthritis, unspecified site; R53.83 Other fatigue | CPT/HCPCS: 36415; 73130; 73630; 80076; 82306; 82565; 84439; 84443; 85025; 86200; 86431; 99204 ==

== ENCOUNTER 2021-10-12 10:17 | Outpatient (CLI) | payer MEDICARE, SELFPAY ==
--- NOTE | 2021-10-12 10:34 | XR_ITS ---
WS: [email or web address] XR foot RT min 3V* [id number] REASON FOR EXAM: [id number] - Other salvage determiner (current) drug therapy FINDINGS: No fracture or focal bone lesion Mild to moderate narrowing of the joint spaces of the PIP and DIP joints of the toes with subchondral sclerosis and small marginal osteophytes. Arthropathy of similar character, but more severe, at the metatarsal-phalangeal joint of the great to e. The joint spaces of the right midfoot and hindfoot are intact. XR/XR foot RT min 3V* [id number] IMPRESSION: Osteoarthritis of the right forefoot most severe at the metatarsal-phalangeal j oint of the great toe.
--- NOTE | 2021-10-12 10:34 | XR_ITS ---
WS: [email or web address] XR hand RT min 3V* [id number] REASON FOR EXAM: Z79.899 - Other watermaster (current) drug therapy FINDINGS: Moderate narrowing of the joint space with subchondral sclerosis and small marginal osteophytes in th e PIP and DIP joints of the fingers. Medial angulation at the PIP joint of the fifth finger. Arthropathy of similar character in the joints of the thumb. No erosions. No periosteal reaction. No soft tissue abnormality. XR/XR hand RT min 3V* [id number] IMPRESSION: Arthropathy compatible with osteoarthritis most significant in the fifth finger .
--- NOTE | 2021-10-12 10:34 | XR_ITS ---
WS: [email or web address] XR foot LT min 3V* [id number] REASON FOR EXAM: Z79.899 - Other filler leaf cutter long (current) drug therapy FINDINGS: No fracture or focal bone lesion. Mild narrowing of the joint spaces with subchondral sclerosis and small marginal osteophytes involvin g the DIP and PIP joints of the toes. Joint spaces of the midfoot in the hindfoot are relatively well-preserved. Small anterior plantar enthesophyte from the calcaneus. XR/XR foot LT min 3V* [id number] IMPRESSION: Mild osteoarthritis in the left forefoot.
--- NOTE | 2021-10-12 10:34 | XR_ITS ---
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 Moderate narrowing of the joint spaces with subchondral sclerosis and small marginal osteophytes in t he DIP and PIP joints of the fingers. Similar arthropathic change in the joints of the thumb. No erosions. No periosteal reaction. No soft tissue abnormality. XR/XR hand LT min 3V* [id number] IMPRESSION: Osteoarthritis of the left hand.
[2021-10-12 11:10] LABS: Basophils # 0.1 10^3/uL (0.0-0.1); Basophils % 1.2 %; Eosinophils # 0.2 10^3/uL (0.0-0.8); Eosinophils % 2.5 %; Hemoglobin 14.5 g/dL (11.7-16.6); Lymphocytes # 1.6 10^3/uL (0.8-4.8); Lymphocytes % 23.8 %; Mean Corpuscular HGB Conc 32.2 g/dL (30.0-36.0); Mean Corpuscular Hemoglobin 27.9 pg (28.0-34.0); Mean Corpuscular Volume 86.7 fl (80-94); Mean Platelet Volume 9.1 fL (7.4-10.4); Monocytes # 0.8 10^3/uL (0.2-0.9); Neutrophils # 4.19 10^3/uL (1.8-7.7); Neutrophils % 60.9 %; Nucleated Red Blood Cells % 0 %; Platelet Count 235 10^3/cmm (130-400); Red Blood Count 5.19 10^6/uL (4.1-5.3); Red Cell Distribution Width 15.1 % (12.1-15.1); White Blood Count 6.9 10^3/uL (4.0-10.0)
[2021-10-12 11:54] LABS: 25 Hydroxy Vitamin D 10 ng/mL (30-100); Alanine Aminotransferase 15 U/L (0-41); Albumin Level 4.7 g/dL (3.5-5.2); Alkaline Phosphatase 49 IU/L (40-130); Aspartate Amino Transferase 15 U/L (0-40); Glomerular Filtration Rate 96.7 mL/min (90-130); Thyroid Stimulating Hormone 1.36 uIU/mL (0.27-4.20); Total Bilirubin 0.5 mg/dL (0.15-1.2); Total Protein 6.7 g/dL (6.6-8.7)
[2021-10-13 14:02] LABS: Cyclic Citrullinated Peptide <16 UNITS
== END 2021-10-12 10:18 | disposition home or self-care (01) ==
LOC: RAD 10:24
PROVIDERS: PCP Family Medicine; Visit Provider Internal Medicine Rheumatology
DX: M06.9 Rheumatoid arthritis, unspecified (principal); M19.90 Unspecified osteoarthritis, unspecified site; R53.83 Other fatigue; Z79.899 Other long term (current) drug therapy
CPT/HCPCS: 36415; 73130; 73630; 80076; 82306; 82565; 84439; 84443; 85025; 86200; 86431

== ENCOUNTER → 2021-11-17 09:40 | Outpatient (BNVA) | payer MEDICARE, SELFPAY | PROVIDERS: PCP Family Medicine; Visit Provider Internal Medicine Pulmonary Disease | DX: J18.9 Pneumonia, unspecified organism (principal); U09.9 Post COVID-19 condition, unspecified; J91.8 Pleural effusion in other conditions classified elsewhere; J45.20 Mild intermittent asthma, uncomplicated; M06.9 Rheumatoid arthritis, unspecified; I10 Essential (primary) hypertension | CPT/HCPCS: 99214 ==

== ENCOUNTER → 2022-01-12 09:30 | Outpatient (BNVA) | payer MEDICARE, SELFPAY | PROVIDERS: PCP Family Medicine; Visit Provider Internal Medicine Pulmonary Disease | DX: J45.20 Mild intermittent asthma, uncomplicated (principal); J12.82 Pneumonia due to coronavirus disease 2019; J18.9 Pneumonia, unspecified organism; J91.8 Pleural effusion in other conditions classified elsewhere; M06.9 Rheumatoid arthritis, unspecified; U09.9 Post COVID-19 condition, unspecified; I10 Essential (primary) hypertension | CPT/HCPCS: 82785; 85025; 86003; 99214 ==

== ENCOUNTER → 2022-01-16 12:58 | Outpatient (BNVA) | payer MEDICARE, SELFPAY | PROVIDERS: PCP Family Medicine; Visit Provider Internal Medicine Rheumatology | DX: M19.041 Primary osteoarthritis, right hand (principal); M19.042 Primary osteoarthritis, left hand; Z79.52 Long term (current) use of systemic steroids | CPT/HCPCS: 99214 ==

== ENCOUNTER 2022-03-02 07:08 | Outpatient (CLI) | payer MEDICARE, SELFPAY ==
--- NOTE | 2022-03-02 10:37 | PFTS_ITS ---
Date of Study:03/02/22 Date of Dictation: 03/04/22 MECHANICS: Postbronchodilator forced vital capacity (FVC) is normal. Postbronchodilator forced expiratory volume in one second (FEV1) is mildly reduced. FEV1/FVC is reduced. There is significant response to bronchodilator FLOW VOLUME LOOP: Sloping of expiratory limb suggestive of airflow obstruction. LUNG VOLUMES: Total lung capacity (TLC) is normal. Residual volume (RV) is normal. DIFFUSING CAPACITY FOR CARBON MONOXIDE: normal. INTERPRETATION: The Spirometry showed mild airflow obstruction. There is significant response to bronchodilators. Lung volumes and gas transfer are normal. Constellation of findings suggestive of reversible obstructive disease. Clinical correlation recommended. [facility]
== END 2022-03-02 07:09 | disposition home or self-care (01) ==
LOC: RT 07:09
PROVIDERS: PCP Family Medicine; Visit Provider Internal Medicine Pulmonary Disease
DX: J45.20 Mild intermittent asthma, uncomplicated (principal)
CPT/HCPCS: 94060; 94726; 94729; J7614

== ENCOUNTER 2022-03-02 07:09 | Outpatient (CLI) | payer MEDICARE, SELFPAY ==
--- NOTE | 2022-03-02 08:30 | CT_ITS ---
WS: [email or web address] CT CHEST WITHOUT INTRAVENOUS CONTRAST HISTORY: check for resolution of lung abscess TECHNIQUE: Contiguous 5 mm axial imaging performed on the thorax. Coronal and sagittal reformats are submitted. All CT scans at [facility] use at least one of these dose optimization techniques: automated exposure control; mA and/or kV adjustment per patient size (includes targeted exams where dose is matched to clinical indication); or iterative reconstruction. CONTRAST: None DLP: 482.36 mGy.cm COMPARISON: 09/27/2021 and 07/01/2021 Lungs and central airway: Marked pulmonary hyperexpansion. LEFT lower lobe abscess continues to decre ase in size with improvement of the adjacent inflammatory changes. The residual abscess cavity now me asures 14 x 15 mm as compared to 31 x 38 mm on 09/27/2021. There is a very tiny central remaining cavi tation. Improvement in the adjacent pleural thickening and reaction. No significant effusion. There a re additional scattered bilateral areas of very minimal atelectasis or scarring. Pleura: No pleural effusion. Heart and pericardium: Normal size heart with no pericardial effusion. Mediastinum and can: No mediastinum or hilar adenopathy. Mild esophageal wall thickening throughout. Vessels: Mild thoracic aorta atherosclerotic plaque. Normal size pulmonary artery. Moderate coronary artery calcifications. Chest wall and lower neck: No soft tissue masses. Upper abdomen: Negative. Osseous structures: Increase in thoracic kyphosis. Nondisplaced remote LEFT 10th rib fracture, thread reeler ior. CT/CT chest wo con [id number] IMPRESSION: 1. Near complete resolution LEFT lower lobe pulmonary abscess. Residual cavity measures 14 x 15 mm. 2. Improved pleural thickening and pleural reaction adjacent to the resolving pulmonary abscess. 3. Chronic emphysema.
== END 2022-03-02 07:10 | disposition home or self-care (01) ==
LOC: RAD 07:09
PROVIDERS: PCP Family Medicine; Visit Provider Internal Medicine Pulmonary Disease
DX: J85.2 Abscess of lung without pneumonia (principal); J43.9 Emphysema, unspecified; J45.20 Mild intermittent asthma, uncomplicated
CPT/HCPCS: 71250; 94060; 94726; 94729; J7614

== ENCOUNTER → 2022-05-30 09:51 | Outpatient (BNVA) | payer MEDICARE, SELFPAY | PROVIDERS: PCP Family Medicine; Visit Provider Internal Medicine Rheumatology | DX: M19.041 Primary osteoarthritis, right hand (principal); M19.042 Primary osteoarthritis, left hand; Z79.899 Other long term (current) drug therapy; Z79.52 Long term (current) use of systemic steroids | CPT/HCPCS: 99214 ==

== ENCOUNTER → 2022-06-22 12:57 | Outpatient (BNVA) | payer MEDICARE, SELFPAY | PROVIDERS: PCP Family Medicine; Visit Provider Internal Medicine | DX: R07.89 Other chest pain (principal); I10 Essential (primary) hypertension; E78.00 Pure hypercholesterolemia, unspecified; I27.20 Pulmonary hypertension, unspecified | CPT/HCPCS: 99214 ==

== ENCOUNTER 2022-08-22 06:51 | Outpatient (CLI) | payer MEDICARE, SELFPAY ==
--- NOTE | 2022-08-22 | ECG_ITS ---
[facility] Test Date: 2022-08-22 Pat Name: Robert Landaverde Department: Room: Gender: Male [employer] Instructor: Mariam Moreno : 1955 Requested By: Christofer Vaz Order Number: [id number] Natalie MD: Christofer Vaz M.D. Interpretive Statements NAME OF STUDY: EXERCISE SESTAMIBI STRESS TEST INDICATION: [Shortness of Breath, ] EXERCISE DATA: The patient was exercised by Karri protocol. Baseline heart rate was 70 beats per minute. Baseline blood pressure was 167/94 millimeters of mercury. Target heart rate was 130 beats per minute. Maximum heart rate achieved was 134, which was 103% of the target heart rate. Maximum blood pressure was 202/89 millimeters of mercury. Total exercise time was 6 minutes and 29 seconds[]. Maximum METs achieved was 10.2 The reason for ending the test was completion of the protocol. The patient complained of shortness of breath during the stress test, which then resolved at the end of the test. ELECTROCARDIOGRAM: BASELINE: Showed sinus rhythm, normal axis, no significant ST-T changes at the baseline noted. [] EXERCISE: At the peak exercise level, [] No significant ST-T changes suggestive of ischemia noted. [] RECOVERY: During the recovery period, heart rate dropped appropriately. No significant ST-T changes in the recovery suggestive of ischemia noted. [] CONCLUSION: 1. Exercise capacity fair 2. Heart rate response was appropriate 3. Blood pressure response was appropriate 4. Symptoms not suggestive of ischemia. 5. Electrocardiogram portion of the stress test was not suggestive of ischemia. 6. Nuclear scan will be documented separately. Electronically Signed On 08-27-2022 13:47:34 PURCHASING ASSISTANT by Christofer Vaz M.D. [id number]
[2022-08-22 06:54] VITALS: BMI 24.0
--- NOTE | 2022-08-22 06:55 | NMCV_ITS ---
NM sarah beth perf SPECT r/s* [id number] BreannaRobert Age: 67 Gender: M : 1955 Exam Date: 08/22/2022 06:55 Ordering Phys: Christofer Vaz M.D ([email or web address]) Technologist: ZAC Porter Exam Location: [facility] Indications: CHEST PAIN SHORTNESS OF BREATH STRESS TEST Please [facility] for [facility] IMAGE PROTOCOL Rest/Stress 1 Exercise Day Radiopharmaceutical Dose (mCi) Administration Site Administered by Rest: Tc-99m 10.6 IV ZAC Mckeon [place] Stress:Tc-99m 32.4 IV ZAC Mckeon [place] Rest: 22-Aug-2022 60 Discovery 630 Stress: 22-Aug-2022 30 Discovery 630 Radiopharmaceutical was injected at 85 % maximum heart rate. Images obtained in supine and prone position. SPECT RESULTS Technical Quality: Excellent Raw Data Analysis: Normal Image Corrections: No attenuation or motion correction applied Summed Stress Score: 0 Summed Rest Score: 1 Summed Difference Score: 0 PERFUSION FINDINGS SPECT images demonstrate homogeneous tracer distribution throughout the myocardium. FUNCTIONAL RESULTS (calculated via Gated SPECT) Stress Image LV EF (%): 77 Stress EDV (mL):64 TID: 0.83 Stress ESV (mL):15 FUNCTIONAL FINDINGS: There is normal left ventricular systolic function. IMPRESSIONS 1. Normal myocardial perfusion imaging with no evidence of ischemia. 2. LV systolic function is normal Christofer Vaz MD (Electronically Signed) Final Date: 22 August 2022 11:00 S
[2022-08-22 10:17] VITALS: BP 163/88; PULSE 85
== END 2022-08-22 06:52 | disposition home or self-care (01) ==
PROVIDERS: PCP Family Medicine; Visit Provider Internal Medicine
DX: R06.02 Shortness of breath (principal); R07.9 Chest pain, unspecified
CPT/HCPCS: 36415; 78452; 93017; A9500

== ENCOUNTER → 2022-09-05 14:06 | Outpatient (BNVA) | payer MEDICARE, SELFPAY | PROVIDERS: PCP Family Medicine; Visit Provider Internal Medicine Rheumatology | DX: M19.041 Primary osteoarthritis, right hand (principal); M19.042 Primary osteoarthritis, left hand; Z79.899 Other long term (current) drug therapy; Z79.52 Long term (current) use of systemic steroids | CPT/HCPCS: 99214 ==

== ENCOUNTER 2022-09-13 12:15 | Outpatient (CLI) | payer MEDICARE, SELFPAY ==
--- NOTE | 2022-09-13 12:25 | XR_ITS ---
WS: [id number] XR chest 2V* [id number] REASON FOR EXAM: cough FINDINGS: Most recent chest imaging was a CT scan of the chest performed 03/02/2022. Mild tortuosity of thoracic aorta with normal heart size. Calcified granulomatous disease in both hemithoraces. Mild to moderate hyperexpansion. 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 Fibrotic pulmonary parenchymal scarring in the left lower lobe. These findings are the residual of pr evious empyema/lung abscess JuneJuly 2021. No acute pulmonary parenchymal or pleural abnormality is identified. Moderate degenerative spondylosis in the mid and lower thoracic spine. XR/XR chest 2V* [id number] IMPRESSION: Chronic abnormalities with no acute chest abnormality identified.
== END 2022-09-13 12:16 | disposition home or self-care (01) ==
LOC: RAD 12:19
PROVIDERS: PCP Family Medicine; Visit Provider Family Medicine
DX: R05.9 Cough, unspecified (principal)
CPT/HCPCS: 71046

== ENCOUNTER → 2022-12-12 13:24 | Outpatient (BNVA) | payer MEDICARE, SELFPAY | PROVIDERS: PCP Family Medicine; Visit Provider Internal Medicine Rheumatology | DX: M19.041 Primary osteoarthritis, right hand (principal); Z79.899 Other long term (current) drug therapy; M19.042 Primary osteoarthritis, left hand | CPT/HCPCS: 36415; 80076; 82565; 85025; 86140; 99214 ==

== ENCOUNTER → 2023-06-21 12:43 | Outpatient (BNVA) | payer MEDICARE, SELFPAY | PROVIDERS: PCP Family Medicine; Visit Provider Internal Medicine | DX: R07.9 Chest pain, unspecified (principal); I10 Essential (primary) hypertension; E78.00 Pure hypercholesterolemia, unspecified; I27.20 Pulmonary hypertension, unspecified | CPT/HCPCS: 99213 ==

== ENCOUNTER → 2023-08-20 14:51 | Outpatient (BNVA) | payer MEDICARE, SELFPAY | PROVIDERS: PCP Family Medicine; Visit Provider Clinical Nurse Specialist Adult Health | DX: R50.9 Fever, unspecified (principal); J06.9 Acute upper respiratory infection, unspecified | CPT/HCPCS: 81000; 87400; 87426 ==

== ENCOUNTER → 2023-09-25 09:07 | Outpatient (BNVA) | payer MEDICARE, SELFPAY | PROVIDERS: PCP Family Medicine; Visit Provider Internal Medicine Rheumatology | DX: Z79.899 Other long term (current) drug therapy; M19.041 Primary osteoarthritis, right hand; M19.042 Primary osteoarthritis, left hand | CPT/HCPCS: 36415; 85651; 86140; 99214 ==

== ENCOUNTER 2023-10-30 10:14 | Outpatient (CLI) | payer MEDICARE, SELFPAY ==
--- NOTE | 2023-10-30 10:18 | XR_ITS ---
WS: [id number] Exam: XR chest 2V* [id number] Date/Time of Exam: 10/30/2023 10:23 AM Reason For Exam: dyspnea Comparison 09/13/2022. The lungs are hyperinflated and clear. Fibrous scarring in the mid to lower LEFT lung. No pleural eff usions. Normal cardiomediastinal silhouette. Regional bony structures are intact. Mild degenerative c hanges of the dorsal spine. IMPRESSION: 1. No acute cardiopulmonary finding. 2. Fibrous scarring in the mid and lower LEFT lung.
== END 2023-10-30 10:15 | disposition home or self-care (01) ==
LOC: RAD 10:15
PROVIDERS: PCP Family Medicine; Visit Provider Family Medicine
DX: R06.00 Dyspnea, unspecified (principal); I10 Essential (primary) hypertension; R53.83 Other fatigue; E11.9 Type 2 diabetes mellitus without complications
CPT/HCPCS: 71046; 80053; 80061; 82607; 83735; 83880; 84443; 85025

== ENCOUNTER → 2023-11-20 13:01 | Outpatient (BNVA) | payer MEDICARE, SELFPAY | PROVIDERS: PCP Family Medicine; Visit Provider Internal Medicine Pulmonary Disease | DX: J40 Bronchitis, not specified as acute or chronic (principal); U09.9 Post COVID-19 condition, unspecified; J45.20 Mild intermittent asthma, uncomplicated; M06.9 Rheumatoid arthritis, unspecified | CPT/HCPCS: 99214 ==

== ENCOUNTER 2023-11-21 09:14 | Outpatient (CLI) | payer MEDICARE, SELFPAY | END 2023-11-21 09:15 | disposition home or self-care (01) | LOC: RT 09:15 | PROVIDERS: PCP Family Medicine; Visit Provider Internal Medicine Pulmonary Disease | DX: J40 Bronchitis, not specified as acute or chronic (principal) | CPT/HCPCS: 87070; 87077; 87205 ==

== ENCOUNTER 2023-12-06 06:52 | Outpatient (CLI) | payer MEDICARE, SELFPAY ==
[2023-12-06 07:34] VITALS: PULSE 73; RESP 18; O2SAT 97
[2023-12-06] MEDS: albuterol 2.5 mg/3 mL Neb INHALATION (07:34)
== END 2023-12-06 06:53 | disposition home or self-care (01) ==
PROVIDERS: PCP Family Medicine; Visit Provider Internal Medicine Pulmonary Disease
DX: U09.9 Post COVID-19 condition, unspecified (principal)
CPT/HCPCS: 94060; 94618; 94726; 94729

== ENCOUNTER → 2024-01-01 14:03 | Outpatient (BNVA) | payer MEDICARE, SELFPAY | PROVIDERS: PCP Family Medicine; Visit Provider Internal Medicine Pulmonary Disease | DX: J45.20 Mild intermittent asthma, uncomplicated (principal); U09.9 Post COVID-19 condition, unspecified; J40 Bronchitis, not specified as acute or chronic; Z87.891 Personal history of nicotine dependence | CPT/HCPCS: 99214 ==

== ENCOUNTER 2024-02-07 13:40 | Outpatient (CLI) | payer MEDICARE, SELFPAY ==
--- NOTE | 2024-02-07 13:46 | XR_ITS ---
WS: [id number] XR knee LT -2V [id number] REASON FOR EXAM: left leg pain FINDINGS: No acute fracture or focal bone lesion. Old healed fracture of the fibula. Medial knee joint space is intact and well maintained. Minimal subchondral sclerosis. Mild to moderate narrowing of the lateral knee joint space with mild subchondral sclerosis and osteop hytosis. Patellofemoral joint space is intact with mild subchondral sclerosis and osteophytosis of th e patella. XR/[place] [id number] IMPRESSION: Mild osteoarthritis of the left knee.
--- NOTE | 2024-02-07 13:46 | XR_ITS ---
WS: [id number] XR hip LT 2-3V wo/w pel* [id number] REASON FOR EXAM: left leg pain FINDINGS: No fracture or focal bone lesion. Mild narrowing of the hip joint space with mild subchondral sclerosis of the acetabulum. No soft tissue abnormality. XR/XR hip LT 2-3V wo/w pel* [id number] IMPRESSION: Mild osteoarthritis of the left hip.
== END 2024-02-07 13:41 | disposition home or self-care (01) ==
LOC: RAD 13:41
PROVIDERS: PCP Family Medicine; Visit Provider Family Medicine
DX: M79.605 Pain in left leg (principal); M89.8X8 Other specified disorders of bone, other site; M25.762 Osteophyte, left knee
CPT/HCPCS: 73502; 73560

== ENCOUNTER 2024-02-08 12:12 | Outpatient (CLI) | payer MEDICARE, SELFPAY ==
--- NOTE | 2024-02-08 12:30 | USCV_ITS ---
Robert Landaverde Age: 68 Gender: M : 1955 Exam Date: 02/08/2024 12:16 Ordering Phys: Alireza Massey MD Technologist: Exam Location: [facility] [place]_ Indication: PAIN RIGHT LEFT Brachial 147.00 mmHg Brachial 154.00 mmHg Pressure (mmHg) Waveform Pressure (mmHg) Waveform 182.00 AVIATION SAFETY TECHNICIAN 187.00 183.00 DPA 170.00 1.19 Ankle/Brachial Index 1.21 153.00 Pre-Exercise Toe Pressure 133.00 0.99 Post-Exercise Toe Pressure 0.86 FINDINGS Resting TIFFANY 1.19 on the right side and 1.2 on the left side Resting TBI 0.9 on the right and 0.86 on the left CONCLUSIONS Normal resting ABIs and TBIs bilaterally No significant arterial obstruction, based on the above findings Dr Yenny Riojas MD FACC (Electronically Signed) Final Date: 08 February 2024 19:26 S
== END 2024-02-08 12:13 | disposition home or self-care (01) ==
PROVIDERS: PCP Family Medicine; Visit Provider Family Medicine
DX: I73.9 Peripheral vascular disease, unspecified (principal)
CPT/HCPCS: 93922

== ENCOUNTER 2024-02-12 09:13 | Emergency (ER) | payer MEDICARE, SELFPAY ==
[2024-02-12 09:17] VITALS: BP 204/111; PULSE 64; RESP 17; TEMP 36.4; O2SAT 99; BMI 24.9
--- NOTE | 2024-02-12 09:20 | ED_ITS ---
HPI - Extremity Problem General: Chief complaint: Extremity Problem,Nontraumatic Stated complaint: left leg pains Time Seen by Provider: 02/12/24 09:15 Source: patient Mode of arrival: ambulatory Limitations: no limitations History of Present Illness: Patient is a nice 68-year-old male who presents to ED today with a complaint of left leg pain. Patient states he has had pain approximately a week. No known injury or trauma. Patient states he was seen by his primary care provider a few days after pain started and had x-rays of the left knee and hip performed as well as an arterial TIFFANY. Left knee and hip x-rays showing osteoarthritis. His ABIs were normal and there was no significant arterial obstruction noted based on the above findings. Patient states his pain seems to be controllable at rest but significantly worsens when he ambulates. He has not noted any significant calf pain or swelling. He has not noticed any color or temperature changes to the leg. He denies numbness, tingling, loss of sensation. He is not having back pain however states he had identical pains in the left leg several years ago prior to him undergoing a back surgery. He states that pain completely alleviated after he had the surgery. MD Complaint: extremity pain Onset (ago): day(s) Pain Consistency: constant Location: left and lower extremity Radiation: none Relieving factors: immobilization Exacerbating factors: walking Associated symptoms: Reports no associated symptoms; Deny chest pain, fever(s) or rash Review of Systems Const: Denies: fever(s) Card: Denies: chest pain Resp: Denies: dyspnea GI: Denies: abdominal pain : Denies: flank pain, dysuria or hematuria Musc: Reports: extremity pain; Denies: neck pain, back pain, extremity swelling, joint swelling, joint redness, joint warmth, muscle weakness or decrease in muscle mass Skin/Breast: Denies: rash Neuro: Reports: difficulty walking (secondary to pain in the L leg); Denies: numbness in extremities, weakness in extremities or sensory changes [facility] ED PFSH: Medical History Seronegative rheumatoid arthritis of both hands High risk medication use Inflammatory arthritis Chronic steroid use Osteoarthritis of hands, bilateral Polyarthralgia H/O fracture of leg Chronic obstructive pulmonary disease Degenerative lumbar spinal stenosis Asthma Hypercholesteremia Hypertension Surgical History History of discectomy History of tonsillectomy Family History Other CAD (coronary artery disease) Cancer Lupus Rheumatoid arthritis Denies family history of Diabetes Hyperlipidemia Chronic kidney disease (CKD) Family history of premature coronary artery disease Lung disease Hypertension Stroke Social History Smoking and tobacco/nicotine status: former use of tobacco/nicotine Alcohol intake: current Alcohol intake frequency: holidays/special occasions only Alcohol type: beer Substance/Drug Use: never Physical Exam Const: COMMON NORMALS: no acute distress, average body habitus, patient oriented x3, no limitations, healthy appearing, alert and well nourished Neck/C-Spine: COMMON NORMALS: no meningeal signs GI: COMMON NORMALS: Normal to inspection, nondistended, normoactive bowel sounds present, Soft to palpation and no masses PALPATION: Yes Soft to palpation : COMMON NORMALS: Yes no CVA tenderness BLADDER/KIDNEY EXAM: Yes no CVA tenderness Back/Pelvis: COMMON NORMALS: no CVA tenderness, no thoracic nor lumbar tenderness and straight leg raise negative bilaterally THORACIC SPINE/UPPER BACK: No thoracic spinal tenderness LUMBAR SPINE/LOWER BACK: No lumbar spinal tenderness and Yes paraspinal muscle tenderness Lumbar paraspinal muscle tenderness: left PELVIS: Yes buttock abnormal Buttock abnormal laterality: left and Yes sciatic notch tenderness on the left SACRUM: no tenderness COCCYX: no tenderness Extremity: COMMON NORMALS: full ROM, capillary refill normal, no joint enlargement, no clubbing, cyanosis or edema, no calf tenderness and no pedal edema GENERAL: Yes normal exam except as noted Neuro: COMMON NORMALS: patient oriented x3, moves all extremities, no focal motor deficits and no sensory deficits noted SENSORIUM/ORIENTATION: Yes alert MENINGEAL SIGNS: Yes no meningeal signs GAIT: Yes Other gait observations present (ambulatory with limp in ED) Skin: COMMON NORMALS: no rashes or lesions noted GENERAL SKIN EXAM: no rashes or lesions noted Course Vital Signs: Vital signs: Vital Signs Temperature 97.6 F 02/12/24 09:17 Pulse Rate 64 02/12/24 09:17 Respiratory Rate 17 02/12/24 09:17 Blood Pressure 204/111 02/12/24 09:17 Pulse Oximetry 99 02/12/24 09:17 Oxygen Delivery Me thod Room Air 02/12/24 09:17 MDM - Extremity (Nontraumatic) Medical Decision Making Patient is a nice 68-year-old male here for complaints of left leg pain over the past week. He has had normal x-rays of the knee and hip apart from some mild osteoarthritis. He has normal ABIs in the lower extremities. I do not have any suspicion for DVT. Patient states his pain radiates from his left buttock down the posterior left thigh and around into the anterior aspect of his left lower leg. This would be consistent with an L4-L5 radiculopathy. He had similar symptoms in 2008 before undergoing neurosurgery by Dr. Mathews. Patient has a follow-up appointment with his PCP tomorrow. He takes hydrocodone chronically so he can continue this. He states he is chronically on steroids for his RA and was given a shot of steroids last week without any improvement so we will forego further steroids at this time. Of note he was noted to be extremely hypertensive here. He states his blood pressure is normally controlled at home and he does not take antihypertensive medication. Looking at previous blood pressures, his last several clinic visits his systolics have ran 130s to 150s. Can follow up with PCP tomorrow to see about starting him on blood pressure meds if indicated. Medical Records I reviewed the patient's medical records. XR interpretation done by ED provider, pending radiology final review Discharge Plan Discharge Patient Disposition: Home Clinical Impression: Acute left lumbar radiculopathy, Elevated blood pressure reading Condition: Stable Prescriptions: New methocarbamol 500 mg tablet 1,000 mg PO Q8H Qty: 30 0RF No Action nitroglycerin [Nitrostat] 0.4 mg tablet, sublingual 0.4 mg SUBLINGUAL Q5M PRN (Reason: Chest Pain) Rx Instructions: do not exceed 3 doses per episode ProAir HFA 90 mcg/actuation HFA aerosol inhaler 2 puff inhalation QID PRN (Reason: Shortness Of Breath) Qty: 8.5 11RF prednisone 20 mg tablet 40 mg PO DAILY 5 Days Qty: 10 0RF amoxicillin-pot clavulanate 875-125 mg tablet 1 tab PO BID 7 Days Qty: 14 0RF ondansetron 4 mg tablet,disintegrating 4 mg PO Q8H PRN (Reason: nausea and vomiting) Qty: 5 0RF omeprazole 20 mg capsule,delayed release(DR/EC) See Rx Instructions PO DAILY Qty: 30 3RF Rx Instructions: take 1 cap in am 30 minutes before eating orally daily; folic acid 1 mg tablet 1 mg PO DAILY Qty: 30 3RF fluticasone propion-salmeterol [Advair Diskus] 100-50 mcg/dose blister with device 1 inh inhalation Q12H Qty: 60 10RF tiotropium bromide [Spiriva with HandiHaler] 18 mcg capsule, w/inhalation device 1 cap inhalation DAILY Qty: 60 3RF Rx Instructions: puncture 1 cap using device; one dose = 2 inhalations nystatin 100,000 unit/mL suspension 10 ml buccal DAILY Qty: 60 0RF Rx Instructions: administer 1/2 of dose in each side of the mouth gabapentin 300 mg capsule 300 mg PO TID Qty: 90 3RF methotrexate sodium 2.5 mg tablet See Rx Instructions .ROUTE .COMPLEX Qty: 77 0RF Dose Instruction: TAKE 6 TABLETS ON SAME DAY ONCE A WEEK BY MOUTH Rx Instructions: TAKE 6 TABLETS ON SAME DAY ONCE A WEEK BY MOUTH prednisone 10 mg tablet 10 mg PO DAILY Qty: 90 1RF hydrocodone-acetaminophen 7.5-325 mg tablet 1 tab PO Q8H PRN (Reason: pain) 30 Days Qty: 75 0RF ibuprofen 400 mg tablet 400 mg PO TID PRN (Reason: pain) Qty: 21 0RF Discharge Orders: Discharge ED (Routine); Ordered 02/12/24 Ordered By: Yolette Lr Referrals: Alireza Massey MD [Primary Care Provider] - Activity Restrictions/Additional Instructions: As we discussed please talk to your primary care provider tomorrow at your currently scheduled appointment in regards to your leg pain. You can continue your normal hydrocodone. We will forego further steroids at this time. Will attempt muscle relaxers to see if this gives you any relief. You are currently taking gabapentin 300mg 3x daily then you can increase this to 600mg morning and evening and then 300mg in the afternoon. You can further titrate up after a week or so. Coding Level of Care Code ED Reservations Clerk for Mj Paredes
--- NOTE | 2024-02-12 09:31 | XRR_ITS ---
PROCEDURE INFORMATION: Exam: XR Lumbosacral Spine Exam date and time: 02/12/2024 9:34 AM Age: 68 years old Clinical indication: Low back pain; Additional info: Lumbar radiculopathy TECHNIQUE: Imaging protocol: Radiologic exam of the lumbosacral spine. Views: 2 or 3 views. COMPARISON: CR XR lumbar spine 1V [id number] 04/28/2019 10:18 AM FINDINGS: Bones/joints: There is [id number] diffuse lumbar degenerative change with loss of disc space and facet arthropathy. No acute fracture. Normal alignment. Soft tissues: Advanced diffuse vascular calcification noted. XR/XR lumbar spine 2-3V* [id number] IMPRESSION: No acute findings.
[2024-02-12 10:36] VITALS: BP 201/99; PULSE 64; RESP 17; O2SAT 96
== END 2024-02-12 10:38 | disposition home or self-care (01) ==
PROVIDERS: Emergency Provider Physician Assistant; PCP Family Medicine
DX: M54.16 Radiculopathy, lumbar region (principal); R03.0 Elevated blood-pressure reading, without diagnosis of hypertension; Z87.891 Personal history of nicotine dependence; I10 Essential (primary) hypertension
CPT/HCPCS: 72100; 99283

== ENCOUNTER 2024-02-18 15:51 | Outpatient (CLI) | payer MEDICARE, SELFPAY ==
--- NOTE | 2024-02-18 16:45 | MRR_ITS ---
PROCEDURE INFORMATION: Exam: MR Lumbar Spine Without Contrast Exam date and time: 02/18/2024 4:06 PM Age: 68 years old Clinical indication: Lumbago with sciatica; Bilateral; Prior surgery; Surgery date: 6+ months; Surgery type: Lumbar disc surgery; Patient HX: Low back pain for 2 weeks unknown injury; Additional info: Worsening sciatica TECHNIQUE: Imaging protocol: Magnetic resonance imaging of the lumbar spine without contrast. COMPARISON: MR lumbar spine wo con* [id number] 04/01/2019 7:26 AM FINDINGS: Bones/joints: Unremarkable. No fracture. Normal alignment. Spinal cord: Visualized cord, conus medullaris and cauda equina are unremarkable without compression. L1-L2: No significant disc bulge or herniation. No severe spinal canal stenosis. No significant neural foraminal narrowing. L2-L3: No significant disc bulge or herniation. No severe spinal canal stenosis. No significant neural foraminal narrowing. L3-L4: No significant disc bulge or herniation. No severe spinal canal stenosis. No significant neural foraminal narrowing. L4-L5: Prominent disc bulge more pronounced on the left. Moderate central canal stenosis. Severe bilateral neural foraminal stenosis. L5-S1: No significant disc bulge or herniation. No severe spinal canal stenosis. No significant neural foraminal narrowing. Soft tissues: Unremarkable. MR/MR lumbar spine wo con* [id number] IMPRESSION: Prominent disc bulge at L4-L5 with moderate central canal stenosis and severe bilateral neural foraminal stenosis at this level. These findings are progressed from most recent comparison study dated 04/01/2019.
== END 2024-02-18 15:52 | disposition home or self-care (01) ==
LOC: RAD 15:52
PROVIDERS: PCP Family Medicine; Visit Provider Family Medicine
DX: M48.061 Spinal stenosis, lumbar region without neurogenic claudication (principal); M54.30 Sciatica, unspecified side; M51.36 Other intervertebral disc degeneration, lumbar region; M99.63 Osseous and subluxation stenosis of intervertebral foramina of lumbar region
CPT/HCPCS: 72148

== ENCOUNTER → 2024-02-28 11:24 | Outpatient (BNVA) | payer MEDICARE, SELFPAY | PROVIDERS: PCP Family Medicine; Visit Provider Orthopaedic Surgery | DX: M48.062 Spinal stenosis, lumbar region with neurogenic claudication (principal); M54.9 Dorsalgia, unspecified | CPT/HCPCS: 72110; 80053; 81003; 85025; 99204 ==

== ENCOUNTER → 2024-03-27 10:47 | Outpatient (BNVA) | payer MEDICARE, SELFPAY | PROVIDERS: PCP Family Medicine; Visit Provider Orthopaedic Surgery | DX: Z98.890 Other specified postprocedural states (principal) | CPT/HCPCS: 99024 ==

== ENCOUNTER → 2024-04-08 10:42 | Outpatient (BNVA) | payer MEDICARE, SELFPAY | PROVIDERS: PCP Family Medicine; Visit Provider Internal Medicine Critical Care Medicine | DX: R06.09 Other forms of dyspnea (principal); R05.3 Chronic cough; J45.50 Severe persistent asthma, uncomplicated; J82.83 Eosinophilic asthma; K21.9 Gastro-esophageal reflux disease without esophagitis; K21.00 Gastro-esophageal reflux disease with esophagitis, without bleeding | CPT/HCPCS: 99214 ==

== ENCOUNTER → 2024-04-24 07:57 | Outpatient (BNVA) | payer MEDICARE, SELFPAY | PROVIDERS: PCP Family Medicine; Visit Provider Orthopaedic Surgery | DX: Z98.890 Other specified postprocedural states (principal) | CPT/HCPCS: 99024 ==

== ENCOUNTER 2024-04-24 16:45 | Inpatient (IN) | payer MEDICARE, SELFPAY ==
[2024-04-24] VITALS (24 sets, daily range): BP systolic 149–204; BP diastolic 85–110; PULSE 62–72; RESP 9–19; TEMP 36.4–36.6; O2SAT 93–97; BMI 26.3; BMI 25.5
--- NOTE | 2024-04-24 17:00 | ECG_ITS ---
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 Measurements Intervals [place] Rate: 67 P: 49 MS: 182 QRS: 17 QRSD: 103 T: 42 QT: 409 QTc: 434 Interpretive Statements SINUS RHYTHM ST ELEVATION, PROBABLY EARLY REPOLARIZATION [ST ELEVATION WITH NORMALLY INFLECTED T-WAVE] Compared to ECG 04/24/2024 16:45:19 ST (T wave) deviation now present Electronically Signed On 04-24-2024 18:28:56 CDT by Christofer Vaz M.D. [id number]
--- NOTE | 2024-04-24 17:01 | ECG_ITS ---
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 Measurements Intervals [place] Rate: 66 P: 57 ND: 188 QRS: 17 QRSD: 98 T: 48 QT: 401 QTc: 422 Interpretive Statements SINUS RHYTHM EARLY REPOLARIZATION [ST ELEVATION WITH NORMALLY INFLECTED T-WAVE] Compared to ECG 05/09/2021 13:29:53 Early repolarization now present Electronically Signed On 04-24-2024 18:29:33 CDT by Christofer Vaz M.D. [id number]
[2024-04-24 17:16] LABS: Basophils # 0.1 10^3/uL (0.0-0.1); Basophils % 1.5 %; Eosinophils # 0.7 10^3/uL (0.0-0.8); Eosinophils % 9.9 %; Hematocrit 42.9 % (37-53); Lymphocytes # 1.4 10^3/uL (0.8-4.8); Lymphocytes % 19.9 %; Mean Corpuscular HGB Conc 33.8 g/dL (30-55); Mean Corpuscular Hemoglobin 30.3 pg (27-33); Mean Corpuscular Volume 89.7 fl (82-101); Mean Platelet Volume 9.3 fL (7.4-10.4); Monocytes # 0.7 10^3/uL (0.2-0.9); Monocytes % 9.7 %; Neutrophils # 4.17 10^3/uL (1.8-7.7); Neutrophils % 58.4 %; Nucleated Red Blood Cells % 0 %; Platelet Count 206 10^3/cmm (157-399); Red Blood Count 4.78 10^6/uL (3.85-5.65); Red Cell Distribution Width 12.8 % (12.1-15.1); White Blood Count 7.14 10^3/uL (3.29-11.43)
[2024-04-24] MEDS: aspirin 81 mg Chew Tablet 324 MG PO (17:16)
--- NOTE | 2024-04-24 17:17 | W.ED.CHESTPA ---
HPI - Chest Pain General: Chief Complaint: Chest Pain Stated Complaint: chest pains and sob Time Seen by Provider: 04/24/24 16:57 History of Present Illness: 60-year-old male presents emergency room with complaint of chest pain that began around 2 this afternoon. Pain is persisting at this time is not causing any diaphoresis shortness of breath radiation to his neck back or arms. Patient has mild pulmonary hypertension he did have a stress test done about 2 years ago that was normal. Has not previously been known to have coronary artery disease when I talk to him he says he has not had any angiograms or stents he had told the nursing staff he had 2 MIs at age 19. He has seen pulmonology for pulmonary hypertension. Patient has visits previously with a medical billing assistant reporting chest discomfort he had a echocardiogram and stress test some of it seems to be precipitated after a COVID infection and no further workup as he had not had any significant findings on that. He does report a family history of coronary artery disease he denies smoking. Associated symptoms: Deny abdominal pain, dyspnea or fever(s) Related Data Previous Rx's Medication Instructions Recorded ibuprofen 400 mg tablet 400 mg PO TID PRN pain #21 tabs 04/30/21 albuterol sulfate 90 mcg/actuation 2 puff inhalation QID PRN 07/25/23 aerosol inhaler (ProAir HFA) Shortness Of Breath #8.5 grams methotrexate sodium 2.5 mg tablet See Rx Instructions .Route 09/26/23 .COMPLEX #77 tabs fluticasone 100 mcg-salmeterol 50 1 inh inhalation Q12H #60 ea 11/20/23 mcg/dose blistr powdr for inhalation (Advair Diskus) tiotropium bromide 18 mcg capsule 1 cap inhalation DAILY #60 11/20/23 with inhalation device (Spiriva inhalations with HandiHaler) ondansetron 4 mg disintegrating 4 mg PO Q8H PRN nausea and 01/08/24 tablet vomiting #5 tabs gabapentin 300 mg capsule 600 mg (2 x 300 mg) PO TID #180 02/20/24 caps benralizumab 30 mg/mL subcutaneous 30 mg SUBCUT .q 8 weeks #1 mL 02/25/24 auto-injector (Fasenra Pen) benralizumab 30 mg/mL subcutaneous 30 mg SUBCUT Q28D 3 doses #1 mL 02/25/24 auto-injector (Fasenra Pen) omeprazole 40 mg capsule,delayed 40 mg PO DAILY #30 caps 04/13/24 release hydrocodone 7.5 mg-acetaminophen 1 tab PO Q8H PRN pain 30 days #90 04/22/24 325 mg tablet tabs Allergies Allergy/AdvReac Type Severity Reaction Status Date / Time Sulfa (Sulfonamide Allergy hives Verified 04/24/24 16:10 Antibiotics) Review of Systems Const: Denies: fever(s) or chills Card: Reports: chest pain Resp: Denies: dyspnea GI: Denies: abdominal pain : Denies: dysuria, urinary frequency or urinary urgency Musc: Denies: neck pain or back pain Skin/Breast: Denies: rash PFSH ED PFSH: Medical History Persistent asthma Shingles Post-COVID syndrome Pleural effusion associated with pulmonary infection Seronegative rheumatoid arthritis of both hands High risk medication use Inflammatory arthritis Chronic steroid use Osteoarthritis of hands, bilateral Polyarthralgia H/O fracture of leg Chronic obstructive pulmonary disease Degenerative lumbar spinal stenosis Asthma Hypercholesteremia Hypertension Surgical History History of discectomy History of tonsillectomy Family History Other CAD (coronary artery disease) Cancer Lupus Rheumatoid arthritis Denies family history of Diabetes Hyperlipidemia Chronic kidney disease (CKD) Family history of premature coronary artery disease Lung disease Hypertension Stroke Social History Smoking and tobacco/nicotine status: never used tobacco/nicotine Alcohol intake: current Alcohol intake frequency: holidays/special occasions only Alcohol type: beer Substance/Drug Use: never Physical Exam Const: COMMON NORMALS: no acute distress GENERAL APPEARANCE: cooperative and comfortable ORIENTATION/CONSCIOUSNESS: Yes awake, Yes oriented to person, Yes oriented to place and Yes oriented to time HENMT: COMMON NORMALS: normocephalic, atraumatic and hearing grossly normal bilaterally HEAD & SCALP: normocephalic and atraumatic Resp: COMMON NORMALS: normal respiratory effort, No retractions, No use of accessory muscles and clear to auscultation bilaterally AUSCULTATION: clear to auscultation bilaterally Cardio: COMMON NORMALS: regular rate, regular rhythm and No murmurs present (Cardio) RATE: regular rate RHYTHM: regular rhythm GI: COMMON NORMALS: Soft to palpation and No hepatosplenomegaly present AUSCULTATION: Yes normoactive bowel sounds PALPATION: Yes Soft to palpation, No Tenderness to palpation present (GI), No Guarding due to palpation present (GI) and Yes No hepatosplenomegaly present Extremity: COMMON NORMALS: normal to inspection, capillary refill normal, no clubbing, cyanosis or edema, no calf tenderness and no pedal edema Neuro: SENSORIUM/ORIENTATION: Yes oriented to person, Yes oriented to place and Yes oriented to time Skin: COMMON NORMALS: no rashes or lesions noted GENERAL SKIN EXAM: no rashes or lesions noted Course Vital Signs: Vital signs: Vital Signs Temperature 97.7 F 04/25/24 03:56 Pulse Rate 62 04/25/24 05:58 Respiratory Rate 11 L 04/25/24 03:45 Blood Pressure 129/72 04/25/24 03:45 Pulse Oximetry 95 04/25/24 03:45 Oxygen Delivery Me thod Room Air 04/25/24 03:01 MDM - Chest Pain Medical Decision Making Patient initially had significant chest pain. Reviewed EKG from triage shows what looks to be early repull within no reciprocal changes it is significantly changed from previous EKG on 05 09 and others done prior to that. EKG forwarded to Dr. Crump reviewed patient still has having chest pain blood pressure was elevated. Dr. Vaz would not recommend starting cardiac workup which has already been initiated patient has been given aspirin. Patient was given morphine which relieved pain to 2-3 of 10. EKG changes persisted several EKG done while waiting on first troponin. Reviewed these with Dr. Vaz as well. Initial troponin 89 previous baseline closer to 20. At this point nitro and heparin were also started patient states his pain remains relatively minimal still 2-[address] Vaz pain was seen patient in the department. EKG changes less prominent on subsequent EKG done in the department but still present. For Milind still feels this is likely early repolarization. Recommends continuing cardiac workup admission continue IV heparin and nitro. He is anticipating angiogram in the morning unless symptoms change. Discussed with hospitalist orders written admit to ICU. Medical Records 1715 Patient reports persistent chest pain since earlier this afternoon. EKG shows ST elevation consistent with early repull has no reciprocal changes EKG repeated shortly after arriving to exam room from triage. Less prominent ST changes but still consistent with early repull discussed and reviewed EKGs with Dr. Vaz was on-call for cardiology he agrees with interpretation of diffuse ST changes being from repole he recommends that we initiate cardiac workup patient has been given aspirin. 1750 Patient blood pressure is elevated continue to have chest discomfort at a range of 2-3. Initially he was 8-9. Dr. Vaz has been consulted he is seen the patient in the emergency room he was started on IV heparin and nitro given his first troponin is 89. Discussed with hospitalist will admit. Orders written for admission. Dr. Vaz has been in the department and seen the patient. He is consulted. Reviewed all EKGs done to this point. Lab Data 04/25/24 06:15 04/25/24 06:15 Radiology Impressions Chest X-Ray 04/24/24 17:25 IMPRESSION: No new focal consolidation impression. Laboratory Results WBC 7.14 10^3/uL (3.29-11.43) 04/24/24 17:03 RBC 4.78 10^6/uL (3.85-5.65) 04/24/24 17:03 Hgb 14.50 g/dL (11.27-16.99) 04/24/24 17:03 Hct 42.9 % (37-53) 04/24/24 17:03 MCV 89.7 fl (82-101) 04/24/24 17:03 MCH 30.3 pg (27-33) 04/24/24 17:03 MCHC 33.8 g/dL (30-55) 04/24/24 17:03 RDW 12.8 % (12.1-15.1) 04/24/24 17:03 Plt Count 206 10^3/cmm (157-399) 04/24/24 17:03 MPV 9.3 fL (7.4-10.4) 04/24/24 17:03 Neut % (Auto) 58.4 % 04/24/24 17:03 Lymph % (Auto) 19.9 % 04/24/24 17:03 [place] % (Auto) 9.7 % 04/24/24 17:03 Eos % (Auto) 9.9 % 04/24/24 17:03 Baso % (Auto) 1.5 % 04/24/24 17:03 Neut # (Auto) 4.17 10^3/uL (1.8-7.7) 04/24/24 17:03 Lymph # (Auto) 1.4 10^3/uL (0.8-4.8) 04/24/24 17:03 [place] # (Auto) 0.7 10^3/uL (0.2-0.9) 04/24/24 17:03 Eos # (Auto) 0.7 10^3/uL (0.0-0.8) 04/24/24 17:03 Baso # (Auto) 0.1 10^3/uL (0.0-0.1) 04/24/24 17:03 Nucleated RBC % (auto) 0 % 04/24/24 17:03 Nucleated RBCs # 0.0 /100WBC 04/24/24 17:03 PT 11.90 SECONDS (12.1-14.9) L 04/24/24 17:03 INR 0.85 (0.8-1.2) 04/24/24 17:03 APTT 28.3 SECONDS (23.9-36.7) 04/24/24 17:03 Sodium 142 mmol/L (136-145) 04/24/24 17:03 Potassium 4.2 mmol/L (3.5-5.1) 04/24/24 17:03 Chloride 104 mmol/L (98-107) 04/24/24 17:03 Carbon Dioxide 26 mmol/L (22-29) 04/24/24 17:03 Anion Gap 16.2 (5-19) 04/24/24 17:03 BUN 12 mg/dL (8-23) 04/24/24 17:03 Creatinine 0.9 mg/dL (0.7-1.2) 04/24/24 17:03 GFR Calculation 83.9 mL/min (90-130) L 04/24/24 17:03 Glucose 108 mg/dL (65-115) 04/24/24 17:03 Calculated Osmolality 294 mOsm/kg (285-295) 04/24/24 17:03 Calcium 9.0 mg/dL (8.5-10.5) 04/24/24 17:03 Iron 55 ug/dL (59-158) L 04/24/24 17:03 TIBC 302 mcg/dl 04/24/24 17:03 % Saturation 18.2 % (20-50) L 04/24/24 17:03 Unsat Iron Binding 247 ug/dL (112-347) 04/24/24 17:03 Total Bilirubin 0.3 mg/dL (0.15-1.2) 04/24/24 17:03 AST 18 U/L (0-40) 04/24/24 17:03 ALT 19 U/L (0-41) 04/24/24 17:03 Alkaline Phosphatase 51 U/L (40-130) 04/24/24 17:03 Troponin T Baseline 89 ng/L (0-15) H 04/24/24 17:03 Total Protein 6.5 g/dL (6.6-8.7) L 04/24/24 17:03 Albumin 4.6 g/dL (3.5-5.2) 04/24/24 17:03 Globulin 1.9 g/dL (1.3-4.6) 04/24/24 17:03 Vitamin B12 584 pg/mL (232-1245) 04/24/24 17:03 Procalcitonin 0.05 ng/mL (0-0.5) 04/24/24 17:03 All radiology interpretation(s) finalized by discharge EKG Data EKG 1: Interpretation: EKG 04/24/[address] elevation changes consistent with early repol no reciprocal changes. Does show some change from previous EKGs. Compared to earlier EKG and 02/2021. Sinus rhythm rate of 67 with a GA interval of 182 Other EKG comments: Reviewed with medical billing assistant on-call Dr. Crump EKG 2: Interpretation: 04/24/[address] changes consistent with early repolarization normal inflected T waves no reciprocal changes. Rate 66. Sinus rhythm GA interval 188. EKG compared to 05/09/2021 Other EKG comments: Reviewed with medical billing assistant on-call Dr. Vaz Clincial Decision Support The following clinical decision support tools were used to aid in care of the patient HEART Score -> History: Moderately Suspicious, EKG: Non-specific Changes, Age: 65 or more yrs, Risk Factors: 1 or 2 Risk Factors, Troponin: Baseline Trop <16 ng/L. Resulting HEART Score: 5. Discharge Plan Discharge Patient Disposition: Admitted As Inpatient Admit Provider: Nicolás Ibarra Clinical Impression: NSTEMI (non-ST elevated myocardial infarction), Hypertension, Mild pulmonary hypertension, Chronic obstructive pulmonary disease Condition: Stable Coding Level of Care Code ED Audit Associate for Mj Paredes
[2024-04-24] MEDS: morphine 4 mg/mL SDV 1 mL IVP (17:23)
--- NOTE | 2024-04-24 17:25 | XRR_ITS ---
PROCEDURE INFORMATION: Exam: XR Chest Exam date and time: 04/24/2024 5:36 PM Age: 68 years old Clinical indication: Cough and shortness of breath; Additional info: Dyspnea/cough TECHNIQUE: Imaging protocol: Radiologic exam of the chest. Views: 1 view. COMPARISON: CR XR chest 2V* [id number] 10/30/2023 10:24 AM FINDINGS: Lungs: Atelectatic changes versus scarring in the left lung base seen to better advantage on prior chest CT dated 09/27/2021. No new focal consolidation impression. Pleural spaces: Unremarkable. No pleural effusion. No pneumothorax. Heart/Mediastinum: Unremarkable. No cardiomegaly. Bones/joints: Unremarkable. XR/XR chest 1V portable [id number] IMPRESSION: No new focal consolidation impression.
[2024-04-24] MEDS: hyDRALAzine 20 mg/mL INJ 1 mL 10 MG IVP (17:31)
[2024-04-24] MEDS: labetalol 5 mg/mL SDV 20mL 10 MG IVP (17:32)
[2024-04-24 17:38] LABS: Troponin(5th) Baseline 89 ng/L (0-15)
[2024-04-24 17:40] LABS: Alanine Aminotransferase 19 U/L (0-41); Albumin Level 4.6 g/dL (3.5-5.2); Alkaline Phosphatase 51 U/L (40-130); Anion Gap 16.2 (5-19); Aspartate Amino Transferase 18 U/L (0-40); Blood Urea Nitrogen 12 mg/dL (8-23); Carbon Dioxide 26 mmol/L (22-29); Chloride 104 mmol/L (98-107); Creatinine Clr Calc Pharmacy 70.4116; Globulin 1.9 g/dL (1.3-4.6); Glomerular Filtration Rate 83.9 mL/min (90-130); Glucose 108 mg/dL (65-115); Osmolality Calculated 294 mOsm/kg (285-295); Potassium 4.2 mmol/L (3.5-5.1); Sodium 142 mmol/L (136-145); Total Bilirubin 0.3 mg/dL (0.15-1.2); Total Protein 6.5 g/dL (6.6-8.7)
--- NOTE | 2024-04-24 17:42 | ECG_ITS ---
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 Measurements Intervals [place] Rate: 67 P: 52 HI: 190 QRS: 15 QRSD: 99 T: 45 QT: 408 QTc: 433 Interpretive Statements SINUS RHYTHM ST ELEVATION, PROBABLY EARLY REPOLARIZATION [ST ELEVATION WITH NORMALLY INFLECTED T-WAVE] Compared to ECG 04/24/2024 17:12:21 No significant changes Electronically Signed On 04-24-2024 18:28:12 CDT by Christofer Vaz M.D. [email or web address].[employer]/store/OV/[id number]
[2024-04-24] MEDS: clopidogrel 300 mg Tablet 600 MG PO (18:11)
[2024-04-24] MEDS: heparin 5,000 unit/mL INJ 1 mL IVP (18:14)
--- NOTE | 2024-04-24 18:24 | P.CONIM_ITS ---
Providers/Reason For Consult 2 Consulting Physician/Specialty*: Christofer Vaz MD/ Cardiology Reason for Consult*: NSTEMI Requesting Physician: Dr Lauren Attending Physician: Dr Ibarra Primary Care Provider: Alireza Massey MD History of Present Illness History of Present Illness Robert Landaverde is a 68 year old male with no significant prior cardiac history who had a stress test over 2 years ago that did not show ischemia has presented with severe substernal chest pain. It was associated with diaphoresis. Occurred about 3 hours ago. Since getting a nitro and morphine, pain has subsided. Initial troponin was 89. Has trended up to 314 at 2 hours. Blood pressure was very high. EKG showed sinus rhythm with nonspecific ST-T wave changes diffusely demonstrating ischemia. Review of Systems 2 Const: Denies: fever(s) or chills Card: Reports: chest pain Resp: Denies: dyspnea GI: Denies: abdominal pain : Denies: dysuria, urinary frequency or urinary urgency Musc: Denies: neck pain or back pain Skin/Breast: Denies: rash Medications/Allergies Home Medications Medication Instructions Recorded Confirmed Last Taken Type methotrexate sodium 2.5 mg tablet See Rx Instructions .Route 09/26/23 04/25/24 Unknown Rx .COMPLEX #77 tabs fluticasone 100 mcg-salmeterol 50 1 inh inhalation Q12H #60 ea 11/20/23 04/25/24 03/11/24 Rx mcg/dose blistr powdr for inhalation (Advair Diskus) tiotropium bromide 18 mcg capsule 1 cap inhalation DAILY #60 11/20/23 04/25/24 03/10/24 Rx with inhalation device (Spiriva inhalations with HandiHaler) ondansetron 4 mg disintegrating 4 mg PO Q8H PRN nausea and 01/08/24 04/25/24 Unknown Rx tablet vomiting #5 tabs gabapentin 300 mg capsule 600 mg (2 x 300 mg) PO TID #180 02/20/24 04/25/24 03/10/24 Rx caps benralizumab 30 mg/mL subcutaneous 30 mg SUBCUT .q 8 weeks #1 mL 02/25/24 04/25/24 Unknown Rx auto-injector (Fasenra Pen) benralizumab 30 mg/mL subcutaneous 30 mg SUBCUT Q28D 3 doses #1 mL 02/25/24 04/25/24 Unknown Rx auto-injector (Fasenra Pen) omeprazole 40 mg capsule,delayed 40 mg PO DAILY #30 caps 04/13/24 04/25/24 Unknown Rx release hydrocodone 7.5 mg-acetaminophen 1 tab PO Q8H PRN pain 30 days #90 04/22/24 04/25/24 Unknown Rx 325 mg tablet tabs albuterol sulfate 90 mcg/actuation 2 puff inhalation QID PRN 04/25/24 04/25/24 Unknown History aerosol inhaler Shortness Of Breath prednisone 10 mg tablet 10 mg PO DAILY 04/25/24 04/25/24 Unknown History Allergies Allergy/AdvReac Type Severity Reaction Status Date / Time Sulfa (Sulfonamide Allergy hives Verified 04/24/24 16:10 Antibiotics) PFSH Acute 2 PFSH: Medical History Persistent asthma Shingles Post-COVID syndrome Pleural effusion associated with pulmonary infection Seronegative rheumatoid arthritis of both hands High risk medication use Inflammatory arthritis Chronic steroid use Osteoarthritis of hands, bilateral Polyarthralgia H/O fracture of leg Chronic obstructive pulmonary disease Degenerative lumbar spinal stenosis Asthma Hypercholesteremia Hypertension Surgical History History of discectomy History of tonsillectomy Family History Other CAD (coronary artery disease) Cancer Lupus Rheumatoid arthritis Denies family history of Diabetes Hyperlipidemia Chronic kidney disease (CKD) Family history of premature coronary artery disease Lung disease Hypertension Stroke Social History Smoking and tobacco/nicotine status: never used tobacco/nicotine Alcohol intake: current Alcohol intake frequency: holidays/special occasions only Alcohol type: beer Substance/Drug Use: never Vitals/I&O/Wt Last Vital Signs Temp 97.5 F L 04/24/24 16:54 Pulse 68 04/24/24 16:54 Resp 16 04/24/24 16:54 BP 204/108 04/24/24 16:54 Pulse Ox 97 04/24/24 16:54 O2 Del Method Room Air 04/24/24 16:54 Weight last 48 hrs Weight 153 lb 8 oz Physical Exam 2 Narrative: GENERAL: Patient is alert, awake and oriented x3. [] NECK: No jugular vein distension. [] HEENT: No cyanosis. No icterus. No pallor. [] HEART: Regular S1 and S2. No murmur, rub or gallop. [] LUNGS: Clear to auscultate bilaterally. [] CENTRAL NERVOUS SYSTEM: Grossly nonfocal. [] EXTREMITIES: Lower extremities with no edema bilaterally. Data 04/25/24 06:15 04/25/24 06:15 A&P Assessment and plan (1) NSTEMI (non-ST elevated myocardial infarction): (2) Hypertensive urgency: (3) Hypertension: Qualifiers: Hypertension type: essential hypertension Qualified Code(s): I10 - Essential (primary) hypertension (4) Hypercholesteremia: Plan Patient has presented with typical chest pain symptoms and significant troponin elevation consistent with non-ST elevation [place]. Blood pressure is also very high. Patient started on aspirin and loaded with Plavix. Anticoagulation started. Nitro drip started. N.p.o. after midnight. Plan for coronary angiogram with possible PCI tomorrow morning. Risk and benefit of the procedure have been discussed with the patient. He understands these and wants to proceed. Order echocardiogram Thank you for involving us with care of this patient. We will continue to follow. Please call with questions. Consult Attestations 2 Medical Necessity Statement: Care expected to cross 2 midnights. Coding Level of Care Code Acute Code for [facility] Diagnoses NSTEMI (non-ST elevated myocardial infarction) I21.4 Hypertensive urgency I16.0 Essential hypertension I10 Hypertension type: essential hypertension Hypercholesteremia E78.00
[2024-04-24] MEDS: nitroglycerin drip 50 MG/250 ML PREMIX IV (18:27)
[2024-04-24] MEDS: heparin drip 25,000 UNIT/500 ML PREMIX 20 UNIT IV (18:28)
--- NOTE | 2024-04-24 18:30 | PC.NURSE ---
Heparin gtt started at 1830, repeat PTT order placed for 6 hours
[2024-04-24 18:45] LABS: INR 0.85 (0.8-1.2)
[2024-04-24 18:46] LABS: Partial Thromboplastin Time 28.3 SECONDS (23.9-36.7)
--- NOTE | 2024-04-24 18:58 | PC.NURSE ---
Assumed care from Lucie DUMONT at this time.
--- NOTE | 2024-04-24 19:13 | USCV_ITS ---
Robert Landaverde Age: 68 Gender: M : 1955 Exam Date: 04/24/2024 22:00 Ordering Phys: Nicolás Ibarra MD Technologist: BEBETO [place] [facility] [place]: NSTEMI BP: 204 / 108 HR: 63 Rhythm: Sinus Technical Quality: Adequate MEASUREMENTS (Male / Female) Normal Values 2D ECHO LV Diastolic Diameter PLAX 3.8 cm 4.2 - 5.9 / 3.9 - 5.3 cm IVS Diastolic Thickness 1.7 cm 0.6 - 1.0 / 0.6 - 0.9 cm IVS Systolic Thickness 2.1 cm LVPW Diastolic Thickness 1.1 cm 0.6 - 1.0 / 0.6 - 0.9 cm LVPW Systolic Thickness 1.8 cm LVOT Diameter 1.9 cm LV Ejection Fraction 2D Teich 59.7 % LV Ejection Fraction MOD 4C 59.2 % LV Ejection Fraction MOD 2C 76.8 % LV Ejection Fraction 2C AL 77.9 % LA Diameter 3.4 cm Aorta at Sinotubular Diameter 2.8 cm IVC Diameter 0.8 cm M-MODE LA Ao Ratio MM 1.3 AV Cusp Separation MM 2.0 cm DOPPLER AV Peak Velocity 108.0 cm/s LVOT Peak Velocity 79.0 cm/s AV Area Cont Eq vti 2.8 cm squared AV Area Cont Eq pk 2.1 cm squared MV Peak Velocity 107.0 cm/s MV Area PHT 3.2 cm squared Mitral E to A Ratio 0.8 TR Peak Velocity 268.0 cm/s TR Peak Gradient 28.7 mmHg TV Peak E Velocity 49.0 cm/s Right Atrial Pressure 5.0 mmHg Pulmonary Artery Systolic Pressu 33.7 mmHg PV Peak Velocity 85.0 cm/s FINDINGS Left Ventricle Left ventricle is normal in size. LV systolic function is normal with EF of 55 to 60%. No regional wall motion abnormalities. Grade 1 diastolic dysfunction Right Ventricle Normal in size and function Right Atrium Normal in size Left Atrium Normal in isze Mitral Valve Structurally normal mitral valve. Mild mitral regurgitation. Aortic Valve Aortic valve is thickened and calcified. No significant stenosis or regurgitation. Tricuspid Valve Mild tricuspid regurgitation. RVSP is 30-35 mmHg Pulmonic Valve Not well visualized Pericardium Normal Aorta Normal in size IVC Normal in size CONCLUSIONS LV systolic function is normal with EF of 55-60% Grade 1 diastolic dysfunction Mild mitral regurgitation Mild tricuspid regurgitation Compared to prior echocardiogram from 2020, patient now has grade 1 diastolic dysfunction Christofer Vaz MD (Electronically Signed) Final Date: 24 April 2024 23:35 S
--- NOTE | 2024-04-24 19:13 | P.HP_ITS ---
Providers/Chief Complaint 2 Admitting Physician: Nicolás Ibarra MD Primary Care Provider: Alireza Massey MD Chief Complaint: chest pains and sob History of Present Illness Robert Landaverde is a 68 year old male with past medical history of hypertension, rheumatoid arthritis, asthma, COPD on frequent steroids, occasional methotrexate presents to the ER from urgent care today because of right-sided chest pain radiated to shoulder along with nausea and extreme diaphoresis which started at around 2 PM while he was walking around. As the patient has been having occasional chest pressure and pain on exertion for last few months along with fatigue which has been getting worse over the last 6 months. In the ER he was found to have elevated blood pressures with systolic going up to 220 for which she was placed on nitro drip. Given concerns for chest pain and elevated first troponin he was also started on a heparin drip. Cardiology was consulted. Review of Systems 2 General: Reports: 10 or more systems reviewed and unremarkable except in HPI and below Const: Denies: fever(s), chills, body aches, change in appetite, change in weight, malaise, night sweats, diaphoresis, change in sleep pattern, daytime sleepiness or snoring Eyes: Denies: change in vision, blurry vision, photophobia, eye discomfort or eye discharge ENMT: Denies: throat pain, enlarged tonsils, hoarseness, mouth pain, oral sores, dry mouth, tinnitus, nasal congestion or post nasal drip Card: Denies: chest pain, palpitations, irregular heart rhythm, edema, swelling of feet/ankles, lightheadedness, syncope, pre-syncope, dyspnea on exertion, orthopnea, leg pain with exertion or acrocyanosis Resp: Denies: dyspnea, productive cough, non-productive cough, wheezing, stridor, pain on inspiration, change in phlegm color, hemoptysis or chest congestion GI: Denies: abdominal pain, nausea, vomiting, hematemesis, coffee ground emesis, dysphagia, heartburn, diarrhea, constipation, bloating, GI cramping, change in bowel habits, pain on defecation, hematochezia or melena : Denies: flank pain, difficulty urinating, dysuria, urinary frequency, urinary urgency, urinary hesitancy, urinary dribbling, difficulty starting urination, change in urine stream, nocturia or hematuria Musc: Denies: neck pain, back pain, extremity pain, joint pain, joint swelling, joint redness, joint stiffness or limited range of motion Neuro: Denies: headache(s), numbness in extremities, weakness in extremities, sensory changes, lack of coordination, difficulty walking, frequent falls, dizziness, vertigo, confusion, Slurred speech present, difficulty communicating thoughts or seizure-like activity Psych: Denies: anxiety, depression, mood swings, panic attacks, hopelessness or irritability Endo: Denies: polyuria, polydipsia, tired all the time, cold intolerance, excessive sweating, flushing or heat intolerance Obi/Lymph: Denies: easy bruising or easy bleeding All/Imm: Denies: tongue swelling, facial swelling or acute wheezing Medications/Allergies Home Medications Medication Instructions Recorded Confirmed Last Taken Type ibuprofen 400 mg tablet 400 mg PO TID PRN pain #21 tabs 04/30/21 04/24/24 Unknown Rx albuterol sulfate 90 mcg/actuation 2 puff inhalation QID PRN 07/25/23 04/24/24 03/10/24 Rx aerosol inhaler (ProAir HFA) Shortness Of Breath #8.5 grams methotrexate sodium 2.5 mg tablet See Rx Instructions .Route 09/26/23 04/24/24 Unknown Rx .COMPLEX #77 tabs fluticasone 100 mcg-salmeterol 50 1 inh inhalation Q12H #60 ea 11/20/23 04/24/24 03/11/24 Rx mcg/dose blistr powdr for inhalation (Advair Diskus) tiotropium bromide 18 mcg capsule 1 cap inhalation DAILY #60 11/20/23 04/24/24 03/10/24 Rx with inhalation device (Spiriva inhalations with HandiHaler) ondansetron 4 mg disintegrating 4 mg PO Q8H PRN nausea and 01/08/24 04/24/24 Unknown Rx tablet vomiting #5 tabs gabapentin 300 mg capsule 600 mg (2 x 300 mg) PO TID #180 02/20/24 04/24/24 03/10/24 Rx caps benralizumab 30 mg/mL subcutaneous 30 mg SUBCUT .q 8 weeks #1 mL 02/25/24 04/24/24 Unknown Rx auto-injector (Fasenra Pen) benralizumab 30 mg/mL subcutaneous 30 mg SUBCUT Q28D 3 doses #1 mL 02/25/24 04/24/24 Unknown Rx auto-injector (Fasenra Pen) omeprazole 40 mg capsule,delayed 40 mg PO DAILY #30 caps 04/13/24 04/24/24 Unknown Rx release hydrocodone 7.5 mg-acetaminophen 1 tab PO Q8H PRN pain 30 days #90 04/22/24 04/24/24 Unknown Rx 325 mg tablet tabs Allergies Allergy/AdvReac Type Severity Reaction Status Date / Time Sulfa (Sulfonamide Allergy hives Verified 04/24/24 16:10 Antibiotics) PFSH Acute 2 PFSH: Medical History Persistent asthma Shingles Post-COVID syndrome Pleural effusion associated with pulmonary infection Seronegative rheumatoid arthritis of both hands High risk medication use Inflammatory arthritis Chronic steroid use Osteoarthritis of hands, bilateral Polyarthralgia H/O fracture of leg Chronic obstructive pulmonary disease Degenerative lumbar spinal stenosis Asthma Hypercholesteremia Hypertension Surgical History History of discectomy History of tonsillectomy Family History Other CAD (coronary artery disease) Cancer Lupus Rheumatoid arthritis Denies family history of Diabetes Hyperlipidemia Chronic kidney disease (CKD) Family history of premature coronary artery disease Lung disease Hypertension Stroke Social History Smoking and tobacco/nicotine status: never used tobacco/nicotine Alcohol intake: current Alcohol intake frequency: holidays/special occasions only Alcohol type: beer Substance/Drug Use: never Vitals/I&O/Wt Last Vital Signs Temp 97.5 F L 04/24/24 16:54 Pulse 69 04/24/24 19:05 Resp 19 H 04/24/24 19:05 BP 160/110 04/24/24 19:05 Pulse Ox 97 04/24/24 19:05 O2 Del Method Room Air 04/24/24 16:54 Weight last 48 hrs Weight 69.626 kg Physical Exam 2 Narrative: General: AO x3, anxious, in mild distress because of chest pain HEENT: PERRLA, pupils bilaterally equal and reactive Chest: Bronchial breath sounds all lung arzola occasional rhonchi CVS: S1-S2 regular, no murmurs, no tachycardia, no gallops, no rubs Abdomen: Soft, nontender, no organomegaly, bowel sounds present Neuro: No focal deficits, no facial deformity, AO x3, power 5/5 in all limbs Data 04/25/24 06:15 04/25/24 06:15 A&P Assessment and plan (1) NSTEMI (non-ST elevated myocardial infarction): First troponin 85 with significant delta in 2 hours. Typical chest pain. High concerns for non-ST elevation MT. Continue with heparin drip, nitro drip. Already received full dose aspirin and Plavix in the ER. Check echocardiogram. Cardiology consulted. Plan for angiogram in a.m. N.p.o. after midnight. Aspirin 81 mg daily, statin 80 mg nightly. Hold off on beta-odette for now as patient is having bradycardia with heart rate running in 60s. Appreciate recent lipid panel. Check A1c. (2) Hypertensive urgency: Goal blood pressures 25% of the presenting blood pressure which would be around 180/90 mmHg. Wean nitro drip accordingly. For now start on amlodipine 10 mg oral daily. (3) Hypercholesteremia: (4) Chronic obstructive pulmonary disease: Not on steroid anymore. Not in exacerbation. Continue with Pulmicort twice daily and DuoNebs every 6 hour. Qualifiers: COPD type: chronic bronchitis Chronic bronchitis type: simple Qualified Code(s): J41.0 - Simple chronic bronchitis (5) Severe persistent asthma: Qualifiers: Asthma complication type: unspecified Qualified Code(s): J45.50 - Severe persistent asthma, uncomplicated Plan Full code Cardiac diet, n.p.o. after midnight Protonix COPD prophylaxis Heparin drip with sufficient for DVT prophylaxis Continue other chronic medications including hydrocodone, gabapentin. Attestations 2 Medical Necessity Statement*: Admission for more than 2 midnights for management of non-ST elevation MT with significant troponin elevation requiring cardiac angiogram in a patient with history of persistent asthma, hypertensive urgency Critical Care Time: The high probability of a clinically significant, sudden or life threatening deterioration of the patient's [cardiac] system(s) required my full and direct attention, intervention and personal management. The critical care time is as shown. This time is in addition to time spent performing any reported procedures but includes the following: [x] Data and vital sign review and interpretation [x] Patient assessment, examination and intervention [x] Documentation [x] Medication orders and management Critical Care Time (min): 70 Coding Level of Care Code Critical Care >/= 30 minutes Critical care time (in minutes): 70 Diagnoses NSTEMI (non-ST elevated myocardial infarction) I21.4 Hypertensive urgency I16.0 Hypercholesteremia E78.00 Simple chronic bronchitis J41.0 COPD type: chronic bronchitis Chronic bronchitis type: simple Severe persistent asthma, unspecified whether complicated J45.50 Asthma complication type: unspecified
--- NOTE | 2024-04-24 19:19 | ECG_ITS ---
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 Measurements Intervals [place] Rate: 62 P: 54 WA: 186 QRS: 12 QRSD: 107 T: 58 QT: 416 QTc: 424 Interpretive Statements SINUS RHYTHM Compared to ECG 04/24/2024 17:42:59 ST (T wave) deviation no longer present Early repolarization no longer present Electronically Signed On 04-24-2024 23:24:25 CDT by Christofer Vaz M.D. [id number]
[2024-04-24] MEDS: amlodipine 10 mg Tablet PO (19:40)
[2024-04-24 19:55] LABS: Iron 55 ug/dL (59-158); Percent Saturation 18.2 % (20-50); Total Iron Binding Capacity 302 mcg/dl; Unsaturated Iron Binding 247 ug/dL (112-347)
[2024-04-24 19:57] LABS: Troponin 5 2HR 314.7 ng/L (0-15); Troponin 5 2HR Delta 225.7 ABS# (0-10)
[2024-04-24 20:11] LABS: Procalcitonin 0.05 ng/mL (0-0.5); Vitamin B12 584 pg/mL (232-1245)
[2024-04-24 21:15] LABS: Bilirubin Urine Negative (Negative); Blood Urine Negative (Negative); Charge for UA Resulting for Rev; Glucose Urine UA Negative (Normal); Ketones Urine Trace (Negative); Leukocyte Esterase Urine Negative (Negative); Nitrate Urine Negative (Negative); Protein Urine Negative (Negative); Specific Gravity, Urine 1.017 (1.005-1.030); Urine Appearance Clear (CLEAR); Urine Color Yellow (Yellow); Urobilinogen Urine 0.2 mg/dL (Negative); pH Urine 7.5 (5-7)
[2024-04-24 21:17] LABS: Bacteria Urine None Seen /hpf; RBC Urine 0-2 /hpf (0-2); Squamous Epithelial Cell Urine 0-5 /hpf (0-5); WBC Urine 0-5 /hpf (0-5)
[2024-04-24] MEDS: atorvastatin 40 mg Tablet 80 MG PO (21:31)
[2024-04-24] MEDS: pantoprazole 40 mg SDV IVP (21:31)
[2024-04-24] MEDS: gabapentin 300 mg Capsule 600 MG PO (21:31)
[2024-04-24] MEDS: sodium chloride 0.9% 1,000 ML 50 ML IV (21:31)
--- NOTE | 2024-04-24 23:01 | ECG_ITS ---
[facility] Test Date: 2024-04-24 Pat Name: Robert Landaverde Department: Room: [id number] Gender: Male [place]: : 1955 Requested By: Steve Bertrand Order Number: [id number] Reading MD: Christofer Vaz M.D. Measurements Intervals [place] Rate: 66 P: 59 HI: 178 QRS: 22 QRSD: 93 T: 82 QT: 398 QTc: 419 Interpretive Statements SINUS RHYTHM NONSPECIFIC T-WAVE ABNORMALITY Compared to ECG 04/24/2024 19:19:29 T-wave abnormality now present Electronically Signed On 04-24-2024 23:23:56 CDT by Christofer Vaz M.D. [id number]
[2024-04-25] VITALS (68 sets, daily range): BP systolic 105–168; BP diastolic 60–111; PULSE 58–80; RESP 8–24; TEMP 36.5–36.7; O2SAT 90–98; BMI 24.5
[2024-04-25] MEDS: HYDROcodone-acetaminophen 7.5-325 mg Tablet 1 TAB PO ×2 (00:01→17:02)
[2024-04-25 00:15] LABS: Troponin 5 6HR 649.6 ng/L (0-15)
[2024-04-25 00:16] LABS: Troponin 5 6HR Delta 560.6 ng/L (0-12)
[2024-04-25 00:38] LABS: Partial Thromboplastin Time 59.1 SECONDS (23.9-36.7)
--- NOTE | 2024-04-25 01:00 | PC.NURSE ---
Cath in AM Dr. Vaz on unit; verification received that patient is supposed to have cardiac angiogram at 0700. Order received to prepare for procedure and stop heparin drip at 0500. While on unit, Dr. Vaz also notified of critical 6 hr troponin, no new orders received.
[2024-04-25] MEDS: ipratropium-albuterol 3 mL Neb INHALATION ×2 (03:00→15:11)
--- NOTE | 2024-04-25 06:17 | XACV_ITS ---
Exam Room: [facility] Ht: 163 cm Wt: 67 kg BSA: 1.75 m2 Gender: Male : 1955 Any Known Allergies: Sulfa Exam Priority: Routine Procedure(s): Procedure Description: Diagnostic procedure Procedure Description: Left Heart Catheterization Procedure Description: Left ventriculography Procedure Description: Miscellaneous Procedure Description: ACT Procedure Description: Coronary Angiography Diagnostic Cath Status: Urgent Diagnostic Findings * Proximal Left Anterior Descending: severe 80-90% calcified stenosis, KENDALL: 3 flow. * First Obtuse Marginal Branch Segment: subtotal occlusion, KENDALL: 1 flow. Heavily calcified. Small sized vessel. * Second Obtuse Marginal Branch Segment: severe 90% stenosis, KENDALL: 3 flow. Calcified stenosis. * Left Main has no disease. * Mid Circumflex: obstructive 70% stenosis, KENDALL: 3 flow. * 1st Diagonal: severe 90% stenosis, KENDALL: 3 flow. * Posterior Descending Right: significant 80% stenosis, KENDALL: 3 flow. * Coronary angiography shows right dominance. Conclusions 1. Severe multivessel Coronary artery disease. 2. Normal left ventricular systolic function. Ejection fraction of 60%. Recommendations * Will transfer patient to tertiary care center for heart team discussion and CABG as has multivessel CAD with heavily calcified vessels. * Continue aspirin. Hold Plavix. Resume heparin 4 hours post sheath pull. Interventional RX Recommendation: CABG Diagnostic RX Recommendation: CABG Ventriculography Ejection Fraction: 60.0 % Pressures Phase:Rest AO : 113 / 86 ( 100 ) @ 9:05:00 AM 104 / 79 ( 92 ) @ 9:06:00 AM 104 / 80 ( 93 ) @ 9:12:00 AM 128 / 67 ( 94 ) @ 9:17:00 AM 128 / 67 ( 94 ) @ 9:17:00 AM LV : 129 / -19 / 3 @ 9:16:00 AM 128 / -16 / 10 @ 9:17:00 AM 124 / -3 / 15 @ 9:17:00 AM Valves Phase:DefaultPhase AV : 0.0 @ 8:29:28 AM 0.0 @ 8:29:29 AM AV Mean Gradient: 0.0 @ 8:29:29 AM Clinical Evaluation EBL: 5mL-10mL Procedural Details Procedure Consent Obtained. Current Diagnosis : Chest Pain. Pre-Procedure Time Out. Identified patient by full name and date of as verbalized by the patient/guarantor. Does the consent match the physician's order: Yes. Accurate & Complete Informed Consent: Yes. Inpatient/Outpatient History & Physical on Chart: Yes. If H&P is completed, is and addenduem needed: No; If yes, is the addendum complete: N/A. Visualize and Verify Site with Patient/Guarantor: N/A. Relevant Radiology Images available: Yes. Pre-op teaching completed and patient verbalized understanding. The risks, benefits, and alternatives of sedation and/or procedure were discussed by physician. The patient agrees to continue. Procedure started. [facility] Clinical Fraility Score: 3: Managing Well. Machine Taper Indications: Worsening Angina. Chest Pain Symptom Assessment: Typical Angina Symptoms. Correct patient, site and procedure confirmed by cath team. Current diagnosis: Chest Pain. PERRLA. Strong, equal hand storage management consultant bilaterally. Lungs clear x 5 lobes. IV Site on Arrival: 18 gauge in the right anticubital. IV Fluids: 0.9% NaCl at KVO. 0 mL infused prior to laborer. Oxygen started at 2liters/min via nasal canula. right groin was prepped with chloroprep then draped in the usual sterile fashion. right radial was prepped with chloroprep then draped in the usual sterile fashion. Baseline sample Acquired. HR: 62 BPM. Physician arrived. Physician scrubbed in. Immediate Pre-Procedure Time Out. Correct Patient: Yes; Correct Procedure: Yes; Correct Site: Yes; Correct Patient Position: Yes; Correct Supplies: Yes; Dried Flammable Prep: Yes; Blood Products Available: N/A;. Lidocaine 1% infiltrated to the right radial. Arterial access obtained. A 5 dutch TIG catheter in over wire. Wire out. Contrast hand injected through the catheter. Glidewire inserted. Catheter removed over the glide wire. A TR Band was successful obtaining hemostatsis at the Right Radial artery insertion site. Lidocaine 1% infiltrated to the right groin. Arterial access obtained with micropuncture set. A 5 dutch JL4 catheter in over wire. Multiple views taken of left coronary artery. Catheter removed over the standard wire. A 5 dutch JR4 catheter in over wire. Multiple views taken of right coronary artery. Catheter removed over the standard wire. A 5 dutch Angled Pig catheter in over wire. EDP Sample taken: LV 129/-20,3; HR: 66 BPM; SpO2: 98%. LV gram performed in RUGGIERO @ 10 mL/second for a total of 30 mL. EDP Sample taken: LV 128/-17,10; HR: 69 BPM; SpO2: 97%. Pullback taken: LV 124/-4,15; AO 128/67(94); Mean: 0mmHg, Peak to Peak: 0mmHg, SEP: 5sec/min; HR: 66 BPM; SpO2: 96%. Catheter removed over the standard wire. ACT drawn. Results 134 seconds. Therapeutic limits - pre-heparin administration 90-150 seconds and monitoring heparin during a vascular procedure >250 seconds. A Right femoral angiogram was performed to determine safe placement of closure device. A Mynx was successful obtaining hemostatsis at the Right Femoral artery insertion site. Vital chart was stopped. Post Procedure: Pulses reassessed and unchanged. PERRLA. Strong, equal hand storage management consultant bilaterally. No VTE prophylaxis required. Medication's Wasted: Nitro = 49.8 mcg. Medication's Wasted: Heparin = 6000 units. Total IV fluids: 75 mL. Post-op diagnosis: CAD. Complications: None. Estimated blood loss: 5mL-10mL. Responsiveness - Normal response to verbal stimuli; alert and oriented, PERRLA. Airway - Unaffected, no intervention required; spontaneous ventilation. Circulation: W/N/L, pulses unchanged. Nausea/Vomiting: No. Procedure completed. Patient transferred by bed to ICU. Access Site Site: Right Radial artery Sheath Size: 6 Fr Hemostasis Method: TR Band Hemostasis Success: Successful Site: Right Femoral artery Sheath Size: 6 Fr Hemostasis Method: Mynx Hemostasis Success: Successful Procedure Medications Start: 7:45 AM Stop: 7:45 AM Medication: Versed Amount: 2 mg Route: I.V. Start: 7:45 AM Stop: 7:45 AM Medication: Fentanyl Amount: 25 mcg Route: I.V. Start: 7:54 AM Stop: 7:54 AM Medication: Nitrogylcerin Amount: 200 mcg Route: I.A. Start: 8:01 AM Stop: 8:01 AM Medication: Fentanyl Amount: 50 mcg Route: I.V. Start: 8:19 AM Stop: 8:19 AM Medication: Fentanyl Amount: 25 mcg Route: I.V. I, the attending physician, have reviewed and verified all procedure medications. Yes, all medications given per verbal order History/Risk Factors Hypertension: Yes Dyslipidemia: Yes Peripheral Arterial Disease (PAD): No Myocardial Infarction (NE): No Obesity: No Renal Disease: No Tobacco Use: Never Prior Interventions PCI: No CABG: No Valve Surgery: No Report Signatures Finalized by Christofer Vaz MD on 04/27/2024 08:55 PM
[2024-04-25 06:27] LABS: Basophils # 0.1 10^3/uL (0.0-0.1); Basophils % 1.4 %; Eosinophils # 0.7 10^3/uL (0.0-0.8); Eosinophils % 10.6 %; Hematocrit 41.2 % (37-53); Lymphocytes # 1.4 10^3/uL (0.8-4.8); Lymphocytes % 22.9 %; Mean Corpuscular HGB Conc 33.3 g/dL (30-55); Mean Corpuscular Hemoglobin 30.1 pg (27-33); Mean Corpuscular Volume 90.5 fl (82-101); Mean Platelet Volume 9.5 fL (7.4-10.4); Monocytes # 0.6 10^3/uL (0.2-0.9); Monocytes % 10.3 %; Neutrophils # 3.36 10^3/uL (1.8-7.7); Neutrophils % 54.2 %; Nucleated Red Blood Cells % 0 %; Platelet Count 192 10^3/cmm (157-399); Red Blood Count 4.55 10^6/uL (3.85-5.65); Red Cell Distribution Width 12.8 % (12.1-15.1); White Blood Count 6.21 10^3/uL (3.29-11.43)
[2024-04-25] MEDS: diphenhydrAMINE 50 mg Capsule PO (06:41)
[2024-04-25] MEDS: aspirin 81 mg EC Tablet PO ×2 (06:41→09:54)
[2024-04-25 06:43] LABS: Estmated Average Glucose 103; Hemoglobin A1C 5.2 % (4.0-6.0)
[2024-04-25 06:45] LABS: Alanine Aminotransferase 22 U/L (0-41); Albumin Level 4.1 g/dL (3.5-5.2); Alkaline Phosphatase 46 U/L (40-130); Anion Gap 15.8 (5-19); Aspartate Amino Transferase 61 U/L (0-40); Blood Urea Nitrogen 9 mg/dL (8-23); Calcium 8.6 mg/dL (8.5-10.5); Carbon Dioxide 22 mmol/L (22-29); Chloride 105 mmol/L (98-107); Globulin 1.9 g/dL (1.3-4.6); Glomerular Filtration Rate 96.1 mL/min (90-130); Glucose 105 mg/dL (65-115); Magnesium 2.1 mg/dL (1.7-2.3); Osmolality Calculated 287 mOsm/kg (285-295); Phosphorus 2.6 mg/dL (2.5-4.5); Potassium 3.8 mmol/L (3.5-5.1); Sodium 139 mmol/L (136-145); Total Bilirubin 0.6 mg/dL (0.15-1.2)
[2024-04-25 07:00] LABS: Folate Level 13.5 ng/mL (4.5-32.2)
--- NOTE | 2024-04-25 07:44 | W.PM.OPSUD ---
Surgery/Procedure H&P Update DATE OF PROCEDURE: April 25, 2024 DATE H&P PERFORMED: 04/24/24 H&P UPDATE INFORMATION: I have reviewed H&P completed within last 30 days, I have examined patient prior to procedure and No changes to prior documentation PREOP DIAGNOSIS: NSTEMI PRIMARY INDICATION FOR PROCEDURE: NSTEMI PLANNED PROCEDURE: Left heart cath with possible percutaneous coronary intervention PATIENT REASSESSED PRIOR TO SEDATION, WITH NO CHANGE NOTED: Yes PHYSICAL EXAM: alert, oriented x 3, clear to auscultation bilaterally and regular rate & rhythm AIRWAY EVAL/ANESTHESIA PLAN: normal airway, ASA III, Local Anesthesia, Risks, benefits & alternatives of sedation and/or procedure discussed and Patient agrees to continue as planned ADDITIONAL INFORMATION: Moderate sedation
--- NOTE | 2024-04-25 09:31 | PM.PN ---
Subjective Subjective: Denies any chest pain. Underwent cardiac angiogram today found to have severe triple-vessel disease with need of CABG. Possible transfer to [facility]. Being arranged by cardiology. Denies any nausea vomiting, headache. Leg comfortably in bed. Vitals/I&O/Wt Last Vital Signs Temp 98.0 F 04/25/24 08:45 Pulse 67 04/25/24 08:45 Resp 10 L 04/25/24 08:45 BP 121/72 04/25/24 08:45 Pulse Ox 96 04/25/24 08:45 O2 Del Method Room Air 04/25/24 03:01 04/24/24 04/25/24 04/25/24 22:59 06:59 14:59 Intake Total 5.1 / 5.1 235.592 / 240.692 0 / 0 Output Total 150 / 150 1375 / 1525 Balance -144.9 / -144.9 -1139.408 / -1284.308 0 / 0 Weight last 48 hrs Weight 67.5 kg Weight 67.5 kg Weight 69.626 kg Physical Exam Narrative: General: AO x3, no acute distress HEENT: PERRLA, pupils bilaterally equal and reactive Chest: Bronchial breath sounds all lung arzola occasional rhonchi CVS: S1-S2 regular, no murmurs, no tachycardia, no gallops, no rubs Abdomen: Soft, nontender, no organomegaly, bowel sounds present Neuro: No focal deficits, no facial deformity, AO x3, power 5/5 in all limbs Data 04/25/24 06:15 04/25/24 06:15 A&P Assessment and plan (1) NSTEMI (non-ST elevated myocardial infarction): First troponin 85 with significant delta in 2 hours. Typical chest pain. High concerns for non-ST elevation [place]. Found to have triple-vessel disease with need of CABG. Will be transferred to tertiary center for the same. Continue with heparin drip. Monitor for chest pain. Continue with baby aspirin, statin. Echocardiogram shows an EF 55% with grade 1 diastolic dysfunction without regional wall motion abnormality. Appreciate A1c, lipid panel. (2) Hypertensive urgency: Resolved. Goal blood pressure less than 140/90 emergency. For now continue with amlodipine 10 mg oral daily. Uptitrate for goal blood pressures. Nitro weaned off. (3) Hypercholesteremia: (4) Chronic obstructive pulmonary disease: Not on steroid anymore. Not in exacerbation. Continue with Pulmicort twice daily and DuoNebs every 6 hour. Qualifiers: COPD type: chronic bronchitis Chronic bronchitis type: simple Qualified Code(s): J41.0 - Simple chronic bronchitis (5) Severe persistent asthma: Qualifiers: Asthma complication type: unspecified Qualified Code(s): J45.50 - Severe persistent asthma, uncomplicated Plan Full code Cardiac diet, n.p.o. after midnight Protonix for PUD prophylaxis Heparin drip with sufficient for DVT prophylaxis Continue other chronic medications including hydrocodone, gabapentin. Care discussed in detail with patient and patient's spouse over the phone at bedside. All the questions were answered. Attestations Medical Necessity Statement*: Requires further hospitalization for management of non-ST elevation OH with severe triple-vessel disease with need for CABG while patient awaits transfer to tertiary center Diagnoses NSTEMI (non-ST elevated myocardial infarction) I21.4 Hypertensive urgency I16.0 Hypercholesteremia E78.00 Simple chronic bronchitis J41.0 COPD type: chronic bronchitis Chronic bronchitis type: simple Severe persistent asthma, unspecified whether complicated J45.50 Asthma complication type: unspecified
[2024-04-25] MEDS: amlodipine 10 mg Tablet PO (09:54)
[2024-04-25] MEDS: gabapentin 300 mg Capsule 600 MG PO ×2 (09:54→17:01)
--- NOTE | 2024-04-25 10:07 | PC.PHAR ---
Addendum entered by Amy Grissom 04/25/24 10:12: Meds last reconciled at Clinic visit 04/24/24 Original Note: Pts' life partner, Anabel is unavailable-left message and completed med rec based on last fill dates and days supply at our main pharmacy. Will follow up with changes, if any.
--- NOTE | 2024-04-25 10:43 | P.PN_ITS ---
Subjective 2 Subjective: Patient is chest pain-free. Had coronary angiogram that is showing multivessel severe CAD. Vessels are ectatic. Proximal LAD has severe, heavily calcified stenosis. Small to medium size diagonal artery has severe ostial disease. OM1 is small to medium sized vessel with a subtotal ostial occlusion. OM 2 with medium to large sized vessel with critical ostial lesion. PDA has proximal severe disease. Vitals/I&O/Wt Last Vital Signs Temp 98.0 F 04/25/24 08:45 Pulse 67 04/25/24 08:45 Resp 10 L 04/25/24 08:45 BP 121/72 04/25/24 08:45 Pulse Ox 96 04/25/24 08:45 O2 Del Method Room Air 04/25/24 03:01 04/24/24 04/25/24 04/25/24 22:59 06:59 14:59 Intake Total 5.1 / 5.1 235.592 / 240.692 0 / 0 Output Total 150 / 150 1375 / 1525 300 / 300 Balance -144.9 / -144.9 -1139.408 / -1284.308 -300 / -300 Weight last 48 hrs Weight 143 lb 5 oz Weight 148 lb 12.992 oz Weight 148 lb 12.992 oz Weight 153 lb 8 oz Physical Exam 2 Narrative: GENERAL: Patient is alert, awake and oriented x3. [] NECK: No jugular vein distension. [] HEENT: No cyanosis. No icterus. No pallor. [] HEART: Regular S1 and S2. No murmur, rub or gallop. [] LUNGS: Clear to auscultate bilaterally. [] CENTRAL NERVOUS SYSTEM: Grossly nonfocal. [] EXTREMITIES: Lower extremities with no edema bilaterally. Data 04/25/24 06:15 04/25/24 06:15 A&P Assessment and plan (1) NSTEMI (non-ST elevated myocardial infarction): (2) Hypertensive urgency: (3) Hypertension: Qualifiers: Hypertension type: essential hypertension Qualified Code(s): I10 - Essential (primary) hypertension (4) Hypercholesteremia: Plan Patient has severe multivessel CAD as mentioned above. Heavily calcified vessels. He will be at transferred to [place] for CABG evaluation. Has been accepted as a transfer at [facility]. Continue aspirin. Hold plavix. Resume heparin at 1PM. ECHO shows normal LV systolic function Thank you for involving us with care of this patient. We will continue to follow. Please call with questions. Attestations 2 Medical Necessity Statement*: Care expected to cross 2 midnights. Coding Level of Care Code Acute Code for Chg Fwd Diagnoses NSTEMI (non-ST elevated myocardial infarction) I21.4 Hypertensive urgency I16.0 Essential hypertension I10 Hypertension type: essential hypertension Hypercholesteremia E78.00
--- NOTE | 2024-04-25 16:56 | PC.NURSE ---
Nurse called Daughter zoila garrett. advised we have a bed at [facility] and he is being transferred. EMS is here and will be leaving shortly. Zoila said she will call Anabel Garrett (listed as life partner).
--- NOTE | 2024-04-25 17:14 | PC.NURSE ---
Transfer Note Patient transferred to [facility],3rd floor-room 375 bed 1 from ICU via ground EMS [facility]. Handoff report given to Sahvon Horn RN. Patient oriented to environment and equipment. Covering service notified. Orders reviewed and will continue to monitor. Patient daughter notified of patient transfer Upon transfer patient is alert/oriented x4 on room air. Puncture wound to right wrist and groin from laborer shaft sinking. Phone number for report is [phone].
== END 2024-04-25 17:00 | disposition short-term general hospital (02) | DRG 282 ==
LOC: ER 18:43 → ICU 18:59
PROVIDERS: Internal Medicine; Admitting Provider Student in an Organized Health Care Education/Training Program; Emergency Provider Family Medicine; PCP Family Medicine; Visit Provider Student in an Organized Health Care Education/Training Program
PROC: B211YZZ Fluoroscopy of Multiple Coronary Arteries using Other Contrast (ICD-10-PCS; principal; 2024-04-25 07:00)
DX: I21.4 Non-ST elevation (NSTEMI) myocardial infarction (principal); I25.10 Atherosclerotic heart disease of native coronary artery without angina pectoris; J45.50 Severe persistent asthma, uncomplicated; J41.0 Simple chronic bronchitis; U09.9 Post COVID-19 condition, unspecified; M06.00 Rheumatoid arthritis without rheumatoid factor, unspecified site; M19.042 Primary osteoarthritis, left hand; M19.041 Primary osteoarthritis, right hand; E78.00 Pure hypercholesterolemia, unspecified; I10 Essential (primary) hypertension; I16.0 Hypertensive urgency; Z79.51 Long term (current) use of inhaled steroids; Z79.631 Long term (current) use of antimetabolite agent
CPT/HCPCS: 36415; 71045; 80053; 81003; 81015; 82607; 82746; 83036; 83540; 83550; 83735; 84100; 84145; 84484; 85025; 85347; 85610; 85730; 93005; 93306; 93458; 94640; 94664; 96374; 96375; 99152; 99153; 99285; C1760; C1769; C1887; C1894; G0269; J0360; J1644; J2250; J2270; J2470; J3010; J3490; J7030; Q0163; Q9967

== ENCOUNTER 2024-05-07 16:31 | Emergency (ER) | payer MEDICARE, SELFPAY ==
--- NOTE | 2024-05-07 16:32 | XR_ITS ---
WS: [id number] Examination: XR chest 1V portable [id number] Reason for Exam: sob Date: 05/07/2024 Comparison: 04/24/2024 Findings: The heart is prominent in size. The mediastinum not widened. Sternal wires are in place Both hemidiaphragms are obscured with basilar opacities which are thought to be at least in part pleu ral fluid. Associated compressive atelectasis may be present. There is a pleural-based density or opacity seen along the left upper chest wall. XR/XR chest 1V portable [id number] Impression: There is cardiomegaly without failure Moderate pleural effusions are suspected. There is a focal pleural-based densities seen on the left which is new from the previous study follow-up to complete resolution is recommended. If this does n ot promptly clear further evaluation with CT of the chest is needed to rule out an aggressive process.
--- NOTE | 2024-05-07 16:32 | ECG_ITS ---
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 Measurements Intervals [place] Rate: 103 P: 61 NV: 164 QRS: 34 QRSD: 146 T: 17 QT: 370 QTc: 484 Interpretive Statements SINUS TACHYCARDIA INDETERMINATE AXIS RIGHT BUNDLE BRANCH BLOCK [120+ ms QRS DURATION, UPRIGHT V1, 40+ ms S IN I/aVL/V4/V5/V6] Compared to ECG 05/07/2024 16:13:04 Ventricular premature complex(es) no longer present Electronically Signed On 05-07-2024 17:38:31 CDT by Yenny Riojas M.D. [id number]
[2024-05-07 16:45] VITALS: BP 119/77; PULSE 103; RESP 20; TEMP 36.3; O2SAT 98; BMI 24.9
[2024-05-07 17:25] LABS: Basophils # 0.1 10^3/uL (0.0-0.1); Basophils % 1.2 %; Eosinophils # 0.9 10^3/uL (0.0-0.8); Eosinophils % 7.9 %; Hematocrit 35.8 % (37-53); Lymphocytes # 1.1 10^3/uL (0.8-4.8); Lymphocytes % 9.8 %; Mean Corpuscular HGB Conc 31.8 g/dL (30-55); Mean Corpuscular Hemoglobin 27.7 pg (27-33); Mean Corpuscular Volume 86.9 fl (82-101); Mean Platelet Volume 9.6 fL (7.4-10.4); Monocytes % 8.8 %; Neutrophils # 7.88 10^3/uL (1.8-7.7); Neutrophils % 70.3 %; Nucleated Red Blood Cells % 0.2 %; Platelet Count 497 10^3/cmm (157-399); Red Blood Count 4.12 10^6/uL (3.85-5.65); Red Cell Distribution Width 14.2 % (12.1-15.1); White Blood Count 11.21 10^3/uL (3.29-11.43)
--- NOTE | 2024-05-07 17:47 | W.ED.SOB ---
HPI - SOB/Dyspnea General: Chief Complaint: Shortness of Breath/Dyspnea Stated Complaint: sob Time Seen by Provider: 05/07/24 17:01 Source: patient Mode of arrival: ambulatory Limitations: no limitations History of Present Illness: HPI Narrative: 68-year-old male has a history of CABG it was done little over 1 week ago he states that he is had some increased shortness of breath he states especially since the CABG and with exertion. He is on no oxygen here in no distress he denies any chest pain denies any fever denies any cough. Associated symptoms: Deny abdominal pain, chest pain, fever(s), nausea or vomiting Related Data Home Medications Medication Instructions Recorded Confirmed albuterol sulfate 90 mcg/actuation 2 puff inhalation QID PRN 04/25/24 05/07/24 aerosol inhaler Shortness Of Breath prednisone 10 mg tablet 10 mg PO DAILY 04/25/24 05/07/24 Previous Rx's Medication Instructions Recorded methotrexate sodium 2.5 mg tablet See Rx Instructions .Route 09/26/23 .COMPLEX #77 tabs fluticasone 100 mcg-salmeterol 50 1 inh inhalation Q12H #60 ea 11/20/23 mcg/dose blistr powdr for inhalation (Advair Diskus) tiotropium bromide 18 mcg capsule 1 cap inhalation DAILY #60 11/20/23 with inhalation device (Spiriva inhalations with HandiHaler) ondansetron 4 mg disintegrating 4 mg PO Q8H PRN nausea and 01/08/24 tablet vomiting #5 tabs gabapentin 300 mg capsule 600 mg (2 x 300 mg) PO TID #180 02/20/24 caps benralizumab 30 mg/mL subcutaneous 30 mg SUBCUT .q 8 weeks #1 mL 02/25/24 auto-injector (Fasenra Pen) benralizumab 30 mg/mL subcutaneous 30 mg SUBCUT Q28D 3 doses #1 mL 02/25/24 auto-injector (Fasenra Pen) omeprazole 40 mg capsule,delayed 40 mg PO DAILY #30 caps 04/13/24 release hydrocodone 7.5 mg-acetaminophen 1 tab PO Q8H PRN pain 30 days #90 04/22/24 325 mg tablet tabs furosemide 40 mg tablet (Lasix) 40 mg PO DAILY #14 tabs 05/07/24 Allergies Allergy/AdvReac Type Severity Reaction Status Date / Time Sulfa (Sulfonamide Allergy hives Verified 05/07/24 16:51 Antibiotics) Review of Systems Const: Denies: fever(s), chills, body aches or change in appetite ENMT: Denies: throat pain or dental pain Card: Denies: chest pain Resp: Reports: dyspnea GI: Denies: abdominal pain, nausea, vomiting or diarrhea Musc: Denies: neck pain or back pain Skin/Breast: Denies: rash Neuro: Denies: headache(s) PFSH ED PFSH: Medical History Persistent asthma Shingles Post-COVID syndrome Pleural effusion associated with pulmonary infection Seronegative rheumatoid arthritis of both hands High risk medication use Inflammatory arthritis Chronic steroid use Osteoarthritis of hands, bilateral Polyarthralgia H/O fracture of leg Chronic obstructive pulmonary disease Degenerative lumbar spinal stenosis Asthma Hypercholesteremia Hypertension Surgical History History of discectomy History of tonsillectomy Family History Other CAD (coronary artery disease) Cancer Lupus Rheumatoid arthritis Denies family history of Diabetes Hyperlipidemia Chronic kidney disease (CKD) Family history of premature coronary artery disease Lung disease Hypertension Stroke Social History Smoking and tobacco/nicotine status: never used tobacco/nicotine Alcohol intake: current Alcohol intake frequency: holidays/special occasions only Alcohol type: beer Substance/Drug Use: never Physical Exam Const: COMMON NORMALS: no acute distress, patient oriented x3 and healthy appearing HENMT: COMMON NORMALS: normocephalic and atraumatic HEAD & SCALP: normocephalic and atraumatic Eye: COMMON NORMALS: Equal, round and reactive pupils present and EOMs intact bilaterally PUPIL: Yes Equal, round and reactive pupils present Neck/C-Spine: COMMON NORMALS: full ROM and supple Chest: COMMONS NORMALS: normal inspection of the chest and normal palpation of entire chest wall Resp: COMMON NORMALS: normal respiratory effort, No retractions, No use of accessory muscles and clear to auscultation bilaterally AUSCULTATION: clear to auscultation bilaterally Cardio: COMMON NORMALS: regular rate, regular rhythm and No murmurs present (Cardio) RATE: regular rate RHYTHM: regular rhythm GI: COMMON NORMALS: Normal to inspection, nondistended, normoactive bowel sounds present, Soft to palpation, non-tender and no masses PALPATION: Yes Soft to palpation Extremity: COMMON NORMALS: normal to inspection and full ROM Neuro: COMMON NORMALS: patient oriented x3, moves all extremities and no focal motor deficits Psych: COMMON NORMALS: mental status grossly normal, Normal thought process present and cooperative THOUGHT PROCESS: Normal thought process present Skin: COMMON NORMALS: no rashes or lesions noted and no wounds GENERAL SKIN EXAM: no rashes or lesions noted Course Vital Signs: Vital signs: Vital Signs Temperature 97.3 F L 05/07/24 16:45 Pulse Rate 94 05/07/24 20:07 Respiratory Rate 20 H 05/07/24 20:07 Blood Pressure 116/88 05/07/24 20:07 Pulse Oximetry 94 05/07/24 20:07 Oxygen Delivery Me thod Room Air 05/07/24 18:47 MDM - SOB/Dyspnea Medical Decision Making 60-year-old male presents here with some dyspnea has some leg swelling elevated BNP CT shows no signs of pneumonia will give dose of Lasix will start him on Lasix at home as well he is to follow-up with his cardiology and return if worsening he understands agrees to plan Medical Records I reviewed the patient's medical records. Lab Data I reviewed the patient's lab results. 05/07/24 17:04 05/07/24 17:04 Labs/Radiology: Radiology Impressions Chest X-Ray 05/07/24 16:32 Impression: There is cardiomegaly without failure Moderate pleural effusions are suspected. There is a focal pleural-based densities seen on the left which is new from the previous study follow-up to complete resolution is recommended. If this does not promptly clear further evaluation with CT of the chest is needed to rule out an aggressive process. Chest CTA 05/07/24 18:03 IMPRESSION: 1. No evidence of pulmonary embolus. 2. Changes of recent median sternotomy with fluid and a few small gas bubbles in the anterior mediastinum. 3. Medium right and small left pleural effusions with scattered atelectasis. 4. Pericardial effusion. 5. 7 mm left upper lobe nodule, not visualized on the prior study. For patients at low risk (minimal or absent history of smoking and of other known risk factors), recommend CT Chest at 6-12 months, then consider CT Chest at 18-24 months. For patients at high risk (history of smoking or of other known risk factors), recommend CT Chest at 6-12 months, then CT Chest at 18-24 months. (Reference: Melanie) References: Melanie Bush, et al. Guidelines for Management of Incidental Pulmonary Nodules Detected on CT Images: From the Fleischner Society 2017. Radiology. 2017;284(1):228-243. Laboratory Results WBC 11.21 10^3/uL (3.29-11.43) 05/07/24 17:04 RBC 4.12 10^6/uL (3.85-5.65) 05/07/24 17:04 Hgb 11.40 g/dL (11.27-16.99) 05/07/24 17:04 Hct 35.8 % (37-53) L 05/07/24 17:04 MCV 86.9 fl (82-101) 05/07/24 17:04 MCH 27.7 pg (27-33) 05/07/24 17:04 MCHC 31.8 g/dL (30-55) 05/07/24 17:04 RDW 14.2 % (12.1-15.1) 05/07/24 17:04 Plt Count 497 10^3/cmm (157-399) H 05/07/24 17:04 MPV 9.6 fL (7.4-10.4) 05/07/24 17:04 Neut % (Auto) 70.3 % 05/07/24 17:04 Lymph % (Auto) 9.8 % 05/07/24 17:04 [place] % (Auto) 8.8 % 05/07/24 17:04 Eos % (Auto) 7.9 % 05/07/24 17:04 Baso % (Auto) 1.2 % 05/07/24 17:04 Neut # (Auto) 7.88 10^3/uL (1.8-7.7) H 05/07/24 17:04 Lymph # (Auto) 1.1 10^3/uL (0.8-4.8) 05/07/24 17:04 [place] # (Auto) 1.0 10^3/uL (0.2-0.9) H 05/07/24 17:04 Eos # (Auto) 0.9 10^3/uL (0.0-0.8) H 05/07/24 17:04 Baso # (Auto) 0.1 10^3/uL (0.0-0.1) 05/07/24 17:04 Nucleated RBC % (auto) 0.2 % 05/07/24 17:04 Nucleated RBCs # 0.0 /100WBC 05/07/24 17:04 D-Dimer >= 20.00 ug/mLFEU (0-0.59) H 05/07/24 17:04 Sodium 134 mmol/L (136-145) L 05/07/24 17:04 Potassium 4.4 mmol/L (3.5-5.1) 05/07/24 17:04 Chloride 95 mmol/L (98-107) L 05/07/24 17:04 Carbon Dioxide 24 mmol/L (22-29) 05/07/24 17:04 Anion Gap 19.4 (5-19) H 05/07/24 17:04 BUN 18 mg/dL (8-23) 05/07/24 17:04 Creatinine 0.7 mg/dL (0.7-1.2) 05/07/24 17:04 GFR Calculation 112.1 mL/min (90-130) 05/07/24 17:04 Glucose 85 mg/dL (65-115) 05/07/24 17:04 Calculated Osmolality 279 mOsm/kg (285-295) L 05/07/24 17:04 Calcium 9.2 mg/dL (8.5-10.5) 05/07/24 17:04 Total Bilirubin 1.1 mg/dL (0.15-1.2) 05/07/24 17:04 AST 26 U/L (0-40) 05/07/24 17:04 ALT 23 U/L (0-41) 05/07/24 17:04 Alkaline Phosphatase 167 U/L (40-130) H 05/07/24 17:04 Troponin T Baseline 75 ng/L (0-15) H 05/07/24 17:04 Troponin T 120 Minute 73.52 ng/L (0-15) H 05/07/24 18:51 Delta Troponin T -1.48 ABS# (0-10) L 05/07/24 18:51 NT-Pro-B Natriuret Pep 1319 pg/mL (0-125) H 05/07/24 17:04 Total Protein 7.0 g/dL (6.6-8.7) 05/07/24 17:04 Albumin 4.0 g/dL (3.5-5.2) 05/07/24 17:04 Globulin 3.0 g/dL (1.3-4.6) 05/07/24 17:04 All radiology interpretation(s) finalized by discharge Discharge Plan Discharge Patient Disposition: Home Clinical Impression: Shortness of breath Condition: Stable Prescriptions: New Lasix 40 mg tablet 40 mg PO DAILY Qty: 14 0RF No Action ondansetron 4 mg tablet,disintegrating 4 mg PO Q8H PRN (Reason: nausea and vomiting) Qty: 5 0RF fluticasone propion-salmeterol [Advair Diskus] 100-50 mcg/dose blister with device 1 inh inhalation Q12H Qty: 60 10RF tiotropium bromide [Spiriva with HandiHaler] 18 mcg capsule, w/inhalation device 1 cap inhalation DAILY Qty: 60 3RF Rx Instructions: puncture 1 cap using device; one dose = 2 inhalations gabapentin 300 mg capsule 600 mg PO TID Qty: 180 3RF omeprazole 40 mg capsule,delayed release(DR/EC) 40 mg PO DAILY Qty: 30 0RF methotrexate sodium 2.5 mg tablet See Rx Instructions .ROUTE .COMPLEX Qty: 77 0RF Dose Instruction: TAKE 6 TABLETS ON SAME DAY ONCE A WEEK BY MOUTH Rx Instructions: TAKE 6 TABLETS ON SAME DAY ONCE A WEEK BY MOUTH Fasenra Pen 30 mg/mL auto-injector 30 mg SUBCUT Q28D Qty: 1 0RF Fasenra Pen 30 mg/mL auto-injector 30 mg SUBCUT .q 8 weeks Qty: 1 3RF Rx Instructions: 1 ml q 28 days X 3 doses and then 1 ml q 8 weeks thereafter. 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
[2024-05-07 17:48] LABS: Troponin(5th) Baseline 75 ng/L (0-15)
[2024-05-07 17:56] LABS: Alanine Aminotransferase 23 U/L (0-41); Alkaline Phosphatase 167 U/L (40-130); Anion Gap 19.4 (5-19); Aspartate Amino Transferase 26 U/L (0-40); Blood Urea Nitrogen 18 mg/dL (8-23); Calcium 9.2 mg/dL (8.5-10.5); Carbon Dioxide 24 mmol/L (22-29); Chloride 95 mmol/L (98-107); Glomerular Filtration Rate 112.1 mL/min (90-130); Glucose 85 mg/dL (65-115); NT Pro B Type Natriuretic Pept 1319 pg/mL (0-125); Osmolality Calculated 279 mOsm/kg (285-295); Potassium 4.4 mmol/L (3.5-5.1); Sodium 134 mmol/L (136-145); Total Bilirubin 1.1 mg/dL (0.15-1.2)
[2024-05-07 18:01] LABS: D Dimer >= 20.00 ug/mLFEU (0-0.59)
--- NOTE | 2024-05-07 18:03 | CTR_ITS ---
PROCEDURE INFORMATION: Exam: CTA Chest With Contrast Exam date and time: 05/07/2024 6:18 PM Age: 68 years old Clinical indication: Patient HX: Recent cabg 1 week ago; Additional info: SOB TECHNIQUE: Imaging protocol: Computed tomographic angiography of the chest with contrast. Exam focused on the arteries. 3D rendering (Not supervised by radiologist): MIP and/or 3D reconstructed images were created by the technologist. Radiation optimization: All CT scans at this facility use at least one of these dose optimization techniques: automated exposure control; mA and/or kV adjustment per patient size (includes targeted exams where dose is matched to clinical indication); or iterative reconstruction. Contrast material: OMNI 350; Contrast volume: 60 ml; Contrast route: INTRAVENOUS (IV); COMPARISON: CT angio chest PE protcl [id number] 05/09/2021 10:51 AM RADIATION DOSE METRICS: Total DLP (mGy-cm): 283 FINDINGS: Pulmonary arteries: Normal. No pulmonary emboli. Aorta: Unremarkable. No aortic aneurysm. No aortic dissection. Lungs: Partial collapse of the right lower lobe. Scattered atelectasis throughout both lungs. No consolidation. 7 mm left upper lobe nodule (series 6, image 232). Pleural spaces: Medium right and small left pleural effusions. Heart: Pericardial effusion. Coronary arteries: Fluid with a few small gas bubbles in the anterior mediastinum, consistent with recent CABG. Lymph nodes: Prominent mediastinal and hilar lymph nodes are most likely reactive. Spleen: Calcified granulomas in the spleen. Bones/joints: Recent median sternotomy changes. Mild degenerative changes in the spine. No fracture. Soft tissues: Unremarkable. CT/CT angio chest PE protcl [id number] IMPRESSION: 1. No evidence of pulmonary embolus. 2. Changes of recent median sternotomy with fluid and a few small gas bubbles in the anterior mediastinum. 3. Medium right and small left pleural effusions with scattered atelectasis. 4. Pericardial effusion. 5. 7 mm left upper lobe nodule, not visualized on the prior study. For patients at low risk (minimal or absent history of smoking and of other known risk factors), recommend CT Chest at 6-12 months, then consider CT Chest at 18-24 months. For patients at high risk (history of smoking or of other known risk factors), recommend CT Chest at 6-12 months, then CT Chest at 18-24 months. (Reference: [place]) References: Melanie Bush, et al. Guidelines for Management of Incidental Pulmonary Nodules Detected on CT Images: From the Fleischner Society 2017. Radiology. 2017;284(1):228-243.
[2024-05-07 18:22] VITALS: BP 114/74; PULSE 100; RESP 19; O2SAT 99
[2024-05-07] MEDS: iohexol 350 mg/mL 500 mL Btl (per mL) IV (18:29)
[2024-05-07 18:47] VITALS: BP 127/82; PULSE 99; RESP 21; O2SAT 95
[2024-05-07] MEDS: HYDROcodone-acetaminophen 5-325 mg Tablet 1 TAB PO (18:56)
[2024-05-07] MEDS: FUROsemide 10 mg/mL SDV 10mL 60 MG IVP (18:57)
--- NOTE | 2024-05-07 19:03 | ECG_ITS ---
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 Measurements Intervals [place] Rate: 100 P: 52 VA: 177 QRS: 38 QRSD: 126 T: 33 QT: 371 QTc: 478 Interpretive Statements SINUS TACHYCARDIA WITH FREQUENT VENTRICULAR PREMATURE COMPLEXES RIGHT BUNDLE BRANCH BLOCK [120+ ms QRS DURATION, UPRIGHT V1, 40+ ms S IN I/aVL/V4/V5/V6] Compared to ECG 05/07/2024 16:35:07 Ventricular premature complex(es) now present Indeterminate axis no longer present Electronically Signed On 05-07-2024 22:41:12 CDT by Yenny Riojas M.D. [id number]
[2024-05-07 19:22] LABS: Troponin 5 2HR 73.52 ng/L (0-15)
[2024-05-07 19:30] LABS: Troponin 5 2HR Delta -1.48 ABS# (0-10)
[2024-05-07 20:07] VITALS: BP 116/88; PULSE 94; RESP 20; O2SAT 94
== END 2024-05-07 20:08 | disposition home or self-care (01) ==
PROVIDERS: Emergency Provider Emergency Medicine; PCP Family Medicine
DX: R06.02 Shortness of breath (principal); J44.9 Chronic obstructive pulmonary disease, unspecified; I10 Essential (primary) hypertension; I25.10 Atherosclerotic heart disease of native coronary artery without angina pectoris; Z95.1 Presence of aortocoronary bypass graft; R00.0 Tachycardia, unspecified; I45.10 Unspecified right bundle-branch block; I49.3 Ventricular premature depolarization; R94.31 Abnormal electrocardiogram [ECG] [EKG]
CPT/HCPCS: 71045; 71275; 80053; 83880; 84484; 85025; 85378; 93005; 96374; 99214; 99285; J1940

== ENCOUNTER → 2024-05-28 08:35 | Outpatient (BNVA) | payer MEDICARE, SELFPAY | PROVIDERS: PCP Family Medicine; Visit Provider Nurse Practitioner Family | DX: I25.10 Atherosclerotic heart disease of native coronary artery without angina pectoris (principal); I10 Essential (primary) hypertension | CPT/HCPCS: 80048; 83880; 99214 ==

== ENCOUNTER → 2024-06-11 11:22 | Outpatient (BNVA) | payer MEDICARE, SELFPAY | PROVIDERS: PCP Family Medicine; Visit Provider Family Medicine | DX: I10 Essential (primary) hypertension (principal); Z95.1 Presence of aortocoronary bypass graft | CPT/HCPCS: 80053; 85025 ==

== ENCOUNTER 2024-06-17 10:33 | Outpatient (RCR) | payer MEDICARE, SELFPAY | END 2024-07-03 23:59 | disposition home or self-care (01) | LOC: CR 10:33 | PROVIDERS: Family Provider Internal Medicine; PCP Family Medicine; Referring Provider Internal Medicine; Visit Provider Internal Medicine | DX: Z95.1 Presence of aortocoronary bypass graft (principal) | CPT/HCPCS: 93798 ==

== ENCOUNTER 2024-07-04 11:52 | Outpatient (RCR) | payer MEDICARE, SELFPAY | END 2024-08-02 23:59 | disposition home or self-care (01) | LOC: CR 11:52 | PROVIDERS: Family Provider Internal Medicine; PCP Family Medicine; Referring Provider Internal Medicine; Visit Provider Internal Medicine | DX: Z95.1 Presence of aortocoronary bypass graft (principal) | CPT/HCPCS: 93798 ==

== ENCOUNTER → 2024-07-07 15:08 | Outpatient (BNVA) | payer MEDICARE, SELFPAY | PROVIDERS: Family Provider Internal Medicine; PCP Family Medicine; Visit Provider Internal Medicine Cardiovascular Disease | DX: I25.10 Atherosclerotic heart disease of native coronary artery without angina pectoris (principal); I50.32 Chronic diastolic (congestive) heart failure; I10 Essential (primary) hypertension; E78.2 Mixed hyperlipidemia | CPT/HCPCS: 99214 ==

== ENCOUNTER → 2024-09-17 11:40 | Outpatient (BNVA) | payer MEDICARE, SELFPAY | PROVIDERS: Family Provider Internal Medicine; PCP Family Medicine; Visit Provider Family Medicine | DX: I25.10 Atherosclerotic heart disease of native coronary artery without angina pectoris (principal) | CPT/HCPCS: 80053 ==

== ENCOUNTER → 2024-12-15 12:33 | Outpatient (BNVA) | payer MEDICARE, SELFPAY | PROVIDERS: Family Provider Internal Medicine; PCP Family Medicine | DX: M10.071 Idiopathic gout, right ankle and foot (principal); M10.9 Gout, unspecified | CPT/HCPCS: 80048; 84550 ==

== ENCOUNTER → 2025-01-14 08:52 | Outpatient (BNVA) | payer MEDICARE, SELFPAY | PROVIDERS: Family Provider Internal Medicine; PCP Family Medicine; Visit Provider Family Medicine | DX: F32.A Depression, unspecified (principal); I10 Essential (primary) hypertension; I25.10 Atherosclerotic heart disease of native coronary artery without angina pectoris; M25.50 Pain in unspecified joint; M48.061 Spinal stenosis, lumbar region without neurogenic claudication; Z00.00 Encounter for general adult medical examination without abnormal findings; R06.00 Dyspnea, unspecified; Z79.899 Other long term (current) drug therapy; M10.071 Idiopathic gout, right ankle and foot | CPT/HCPCS: 80053; 80061; 82306; 82607; 83880; 84403; 84443; 84550; 85025; 86140 ==

== ENCOUNTER → 2025-01-29 08:24 | Outpatient (BNVA) | payer MEDICARE, SELFPAY | PROVIDERS: Family Provider Internal Medicine; PCP Family Medicine; Visit Provider Orthopaedic Surgery | DX: Z98.890 Other specified postprocedural states (principal) | CPT/HCPCS: 72100; 99213 ==

== ENCOUNTER 2025-02-06 11:58 | Outpatient (CLI) | payer MEDICARE, SELFPAY ==
--- NOTE | 2025-02-06 12:15 | MR_ITS ---
WS: [id number] MRI LUMBAR SPINE NONCONTRAST HISTORY: back pain, prior lumbar surgery at L4-5 and April 04, 2024. COMPARISON: 02/18/2024 TECHNIQUE: Sagittal and axial multisequence imaging is submitted. Degenerative disc disease at see C5-6. Mild increase in thoracic kyphosis. Normal lumbar alignment with no compression fractures or marrow edema. Very mild disc base narrowing and desiccation at L4-5. Conus terminates normally at L1-2 disc level. L1-L2: Normal. L2-L3: Normal. L3-L4: Mild annular disc bulging encroaching upon the ventral thecal sac and subarticular recesses. Moderate ligamentum flavum and facet arthritis. Bilateral foraminal disc bulging contacts the exiting L3 nerve roots. There is also disc contact on the traversing L4 nerve roots. Mild central, bilateral subarticular recess and foraminal stenosis. Similar to the prior study. L4-L5: Mild diffuse annular disc bulging with osteophytic ridging. Laminectomy defects. There may be bilateral laminectomy defects. The LEFT is greater than the RIGHT. Previously described disc protrusion has decreased. There is still a small central to LEFT paracentral disc protrusion. Less encroachment into the subarticular recesses. Bilateral foraminal disc protrusions causing significant foraminal stenosis and contact on the exiting L4 nerve roots. Mild to moderate central with bilateral subarticular recess stenosis. L5-S1: Bilateral ligamentum flavum and facet arthritis. No high-grade stenosis. MR/MR lumbar spine wo con* [id number] IMPRESSION: 1. Disc protrusion noted at L4-5 has decreased in size. There is still a small residual or recurrent disc protrusion extending into the LEFT subarticular rec ess. Associated scar tissue may also be present which is difficult to determine without IV contrast. 2. Bilateral laminectomy defects at L4-5. 3. L4-5: Bilateral foraminal disc protrusions causing significant foraminal st enosis and contacting the exiting L4 nerve roots. Additional mild to moderate c entral with bilateral subarticular recess stenosis. 4. L3-4: Mild central, bilateral subarticular recess and foraminal stenosis. T here is disc contacting the exiting L3 nerve roots.
== END 2025-02-06 11:59 | disposition home or self-care (01) ==
PROVIDERS: Family Provider Internal Medicine; PCP Family Medicine; Visit Provider Orthopaedic Surgery
DX: Z98.890 Other specified postprocedural states (principal); M51.26 Other intervertebral disc displacement, lumbar region; M96.89 Other intraoperative and postprocedural complications and disorders of the musculoskeletal system; M48.061 Spinal stenosis, lumbar region without neurogenic claudication; M50.322 Other cervical disc degeneration at C5-C6 level; R93.7 Abnormal findings on diagnostic imaging of other parts of musculoskeletal system; M51.369 Other intervertebral disc degeneration, lumbar region without mention of lumbar back pain or lower extremity pain; M24.28 Disorder of ligament, vertebrae; M47.896 Other spondylosis, lumbar region; M25.78 Osteophyte, vertebrae; M47.897 Other spondylosis, lumbosacral region
CPT/HCPCS: 72148

== ENCOUNTER → 2025-02-10 14:14 | Outpatient (BNVA) | payer MEDICARE, SELFPAY | PROVIDERS: Family Provider Internal Medicine; PCP Family Medicine; Visit Provider Orthopaedic Surgery | DX: M48.061 Spinal stenosis, lumbar region without neurogenic claudication (principal); Z98.890 Other specified postprocedural states | CPT/HCPCS: 99214 ==

== ENCOUNTER → 2025-03-02 07:50 | Outpatient (BNVA) | payer MEDICARE, SELFPAY | PROVIDERS: Family Provider Internal Medicine; PCP Family Medicine; Referring Provider Orthopaedic Surgery; Visit Provider Anesthesiology Pain Medicine | DX: M48.062 Spinal stenosis, lumbar region with neurogenic claudication (principal); M48.061 Spinal stenosis, lumbar region without neurogenic claudication; M79.605 Pain in left leg; Z98.890 Other specified postprocedural states | CPT/HCPCS: 99204 ==

== ENCOUNTER → 2025-03-11 14:27 | Outpatient (BNVA) | payer MEDICARE, SELFPAY | PROVIDERS: Family Provider Internal Medicine; PCP Family Medicine; Visit Provider Anesthesiology Pain Medicine | DX: M54.16 Radiculopathy, lumbar region (principal); M48.062 Spinal stenosis, lumbar region with neurogenic claudication; M54.9 Dorsalgia, unspecified | CPT/HCPCS: 64483; 64484; J1100; J3490; J9999 ==

== ENCOUNTER → 2025-03-24 08:12 | Outpatient (BNVA) | payer MEDICARE, SELFPAY | PROVIDERS: Family Provider Internal Medicine; PCP Family Medicine; Visit Provider Anesthesiology Pain Medicine | DX: M48.062 Spinal stenosis, lumbar region with neurogenic claudication (principal); M48.061 Spinal stenosis, lumbar region without neurogenic claudication; M79.605 Pain in left leg; Z98.890 Other specified postprocedural states | CPT/HCPCS: 99213 ==

== ENCOUNTER 2025-07-22 16:38 | Inpatient (IN) | payer MEDICARE, SELFPAY ==
[2025-07-22] VITALS (7 sets, daily range): BP systolic 109–160; BP diastolic 72–100; PULSE 66–82; RESP 15–19; TEMP 36.7–36.8; O2SAT 93–99; BMI 26.4
--- NOTE | 2025-07-22 16:41 | XRR_ITS ---
PROCEDURE INFORMATION: Exam: XR Chest Exam date and time: 07/22/2025 5:01 PM Age: 70 years old Clinical indication: Pain; Angina pectoris; Additional info: Cp TECHNIQUE: Imaging protocol: Radiologic exam of the chest. Views: 1 view. COMPARISON: CT angio chest PE protcl [id number] 05/07/2024 6:18 PM FINDINGS: Lungs: Small left-sided pleural effusion present with scarring in the periphery of the left mid lung zone, compressive parenchymal changes left lower lung base , nonspecific finding atelectasis or pneumonia could be considered . Correlate and follow-up as indicated Pleural spaces: See Lungs finding. Heart/Mediastinum: Patient is status post open heart Bones/joints: Heart bony structures showed no acute findings XR/XR chest 1V portable [id number] IMPRESSION: Patient is postop heart with presence of small pleural effusion nonspecific opacity left lower lobe as above could represent atelectasis correlate clinically.
--- NOTE | 2025-07-22 16:41 | ECG_ITS ---
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 Measurements Intervals [place] Rate: 73 P: 78 PA: 192 QRS: -15 QRSD: 140 T: 57 QT: 390 QTc: 430 Interpretive Statements SINUS RHYTHM WITH FREQUENT VENTRICULAR PREMATURE COMPLEXES RIGHT BUNDLE BRANCH BLOCK [120+ ms QRS DURATION, UPRIGHT V1, 40+ ms S IN I/aVL/V4/V5/V6] Compared to ECG 05/07/2024 19:03:10 Sinus tachycardia no longer present Electronically Signed On 07-22-2025 23:52:57 [employer] by Yenny Riojas M.D. [email or web address] [id number]
--- NOTE | 2025-07-22 17:08 | ED_ITS ---
HPI - Chest Pain 2 General: Chief Complaint: Chest Pain Stated Complaint: chest pain Time Seen by Provider: 07/22/25 16:58 Source: patient Mode of arrival: ambulatory Limitations: no limitations History of Present Illness: 70-year-old male extensive history of ca rdiac issues had a history of CABG 1 year ago states that he woke up this morning having some pressure type pain in the center of his chest with some mild dyspnea. Patient went to his PCP office was given nitro states the pain did improved there but now started have some mild pains return he states is currently 2 out of 10 pressure type pain. I did speak to his primary care physician Dr. Lyle and reviewed his labs from his physician today he had a troponin drawn at 1 PM today that was 28 and he had him come back and draw a 2-hour troponin at 315 that is elevated to 86. Related Data Home Medications ?Medication ?Instructions ?Recorded ?Confirmed albuterol sulfate 90 mcg/actuation 2 puff inhalation Q ID PRN 04/25/24 07/22/25 aerosol inhaler Shortness Of Breath aspirin 81 mg tablet,delayed 81 mg PO DAILY 05/28/24 1 09/21/24 release (Adult Low Dose Aspirin) Previous Rx's ?Medication ?Instructions ?Recorded fluticasone 100 mcg-salmeterol 50 1 inh inhalation Q12 H #60 ea 11/20/23 mcg/dose blistr powdr for inhalation (Advair Diskus) tiotropium bromide 18 mcg capsule 1 cap inhalation MARYANN LY #60 11/20/23 with inhalation device (Spiriva inhalations with HandiHaler) benralizumab 30 mg/mL subcutaneous 30 mg SUBCUT .q 8 w eeks #1 mL 02/25/24 auto-injector (Fasenra Pen) atorvastatin 80 mg tablet 80 mg PO DAILY #90 tabs 05/05 01/24 clopidogrel 75 mg tablet 75 mg PO DAILY #90 tabs 05/05 01/24 escitalopram oxalate 10 mg tablet 10 mg PO DAILY #30 t abs 05/28/24 (Lexapro) prednisone 10 mg tablet See Rx Instructions .Route 0 01/02/25 .COMPLEX #90 tabs allopurinol 100 mg tablet 100 mg PO DAILY #30 tabs cholecalciferol (vitamin D3) 50 50 mcg PO DAILY #30 ta bs 01/29/25 mcg (2,000 unit) tablet (Vitamin D3) amoxicillin 875 mg-potassium 1 tab PO BID 7 days #14 t abs 03/19/25 clavulanate 125 mg tablet prednisone 20 mg tablet 20 mg PO BID 5 days #10 tabs 03/19/25 hydrocodone 7.5 mg-acetaminophen 1 tab PO Q8H PRN pain 30 days #90 06/28/25 325 mg tablet tabs lisinopril 20 mg tablet 20 mg PO DAILY #30 tabs 07/04 05/28 nitroglycerin 0.4 mg sublingual 0.4 mg sublingual Q5M PRN chest 07/22/25 tablet pain #20 tabs Allergies Allergy/AdvReac Type Severity Reaction Status Date / Time Sulfa (Sulfonamide Allergy hives Verified 03/24/25 08:15 Antibiotics) Review of Systems 2 Card: Reports: chest pain PFSH ED 2 PFSH: Medical History Coronary artery disease Persistent asthma Shingles Post-COVID syndrome Pleural effusion associated with pulmonary infection Seronegative rheumatoid arthritis of both hands High risk medication use Inflammatory arthritis Chronic steroid use Osteoarthritis of hands, bilateral Polyarthralgia H/O fracture of leg Chronic obstructive pulmonary disease Degenerative lumbar spinal stenosis Asthma Hypercholesteremia Hypertension Surgical History History of discectomy History of tonsillectomy Family History Other CAD (coronary artery disease) Cancer Lupus Rheumatoid arthritis Denies family history of Diabetes Hyperlipidemia Chronic kidney disease (CKD) Family history of premature coronary artery disease Lung disease Hypertension Stroke Social History Smoking and tobacco/nicotine status: never used tobacco/nicotine Alcohol intake: current Alcohol intake frequency: holidays/special occasions only Alcohol type: beer Substance/Drug Use: never Physical Exam 2 Const: COMMON NORMALS: patient oriented x3 HENMT: COMMON NORMALS: normocephalic and atraumatic HEAD & SCALP: n ormocephalic and atraumatic Neck/C-Spine: COMMON NORMALS: full ROM and supple Chest: COMMONS NORMALS: normal inspection of the chest Resp: COMMON NORMALS: normal respiratory effort, No retractions, No use of accessory muscles and clear to auscultation bilaterally AUSCULTATION: clear to auscultation bilaterally Cardio: COMMON NORMALS: regular rate, regular rhythm and No murmurs present (Cardio) RATE: regular rate RHYTHM: regular rhythm GI: COMMON NORMALS: Normal to inspection, nondistended, normoactive bowel sounds present, Soft to palpation, non-tender and no masses PALPATION: Yes Soft to palpation Extremity: COMMON NORMALS: normal to inspection and full ROM Neuro: COMMON NORMALS: patient oriented x3, moves all extremities and no focal motor deficits Psych: COMMON NORMALS: mental status grossly normal, Normal thought process present and cooperative THOUGHT PROCESS: Normal thought process present Skin: COMMON NORMALS: no rashes or lesions noted and no wounds GENERAL SKIN EXAM: no rashes or lesions noted Course 2 Vital Signs: Vital signs: Vital Signs Temperature 98.0 F 07/22/25 16:39 Pulse Rate 78 07/22/25 16:39 Respiratory Rate 18 07/22/25 16:39 Blood Pressure 151/72 07/22/25 16:39 Pulse Oximetry 98 07/22/25 16:39 Oxygen Delivery Me thod Room Air 07/22/25 16:39 MDM - Chest Pain Medical Decision Making 70-year-old male presents here with chest pain differential includes ACS, pulm embolism, aortic dissection. Did review his chest x-ray here showed no acute abnormalities no signs of dissection has no signs of pulmonary emboli here. Did interpret his EKG showed normal sinus rhythm heart rate [address] elevation QRS 140 QTc 415. Patient had previous troponins drawn outpatient initial was 28 2-hour had a increase to 86 consistent with a NSTEMI. Did give him nitro here he is currently pain-free I did speak to remote medical coder Dr. Crump who recommended admission along with Lovenox he is formally consulted I spoke to hospitalist MUKUL CALDERA who is excepting to cardiac stepdown. Medical Records I reviewed the patient's medical records. Lab Data I reviewed the patient's lab results. 07/22/25 17:03 07/22/25 17:03 Laboratory Results WBC 8.67 10^3/uL (3.29-11.43) 07/22/25 17:03 RBC 5.09 10^6/uL (3.85-5.65) 07/22/25 17:03 Hgb 15.20 g/dL (11.27-16.99) 07/22/25 17:03 Hct 44.7 % (37-53) 07/22/25 17:03 MCV 87.8 fl (82-101) 07/22/25 17:03 MCH 29.9 pg (27-33) 07/22/25 17:03 MCHC 34.0 g/dL (30-55) 07/22/25 17:03 RDW 12.3 % (12.1-15.1) 07/22/25 17:03 Plt Count 213 10^3/cmm (157-399) 07/22/25 17:03 MPV 9.8 fL (7.4-10.4) 07/22/25 17:03 Neut % (Auto) 64.7 % 07/22/25 17:03 Lymph % (Auto) 19.7 % 07/22/25 17:03 Geary % (Auto) 8.9 % 07/22/25 17:03 Eos % (Auto) 4.7 % 07/22/25 17:03 Baso % (Auto) 1.5 % 07/22/25 17:03 Neut # (Auto) 5.61 10^3/uL (1.8-7.7) 07/22/25 17:03 Lymph # (Auto) 1.7 10^3/uL (0.8-4.8) 07/22/25 17:03 Geary # (Auto) 0.8 10^3/uL (0.2-0.9) 07/22/25 17:03 Eos # (Auto) 0.4 10^3/uL (0.0-0.8) 07/22/25 17:03 Baso # (Auto) 0.1 10^3/uL (0.0-0.1) 07/22/25 17:03 Nucleated RBC % (auto) 0 % 07/22/25 17:03 Nucleated RBCs # 0.0 /100WBC 07/22/25 17:03 XR interpretation done by ED provider, pending radiology final review ED provider radiology interpretation(s): cxr: no acute abnormality EKG Data EKG 1: I personally reviewed and interpreted this EKG as follows: EKG interpretation date: 07/22/25 EKG interpretation time: 16:42 Interpretation: nsr hr [address] elevation qrs 140 qtc 415 Discharge Plan Discharge Patient Disposition: Admitted As Inpatient Clinical Impression: NSTEMI (non-ST elevated myocardial infarction) Condition: Stable Coding Level of Care Code ED Service Desk Agent for Chg Fwd Heart Score HEART Score Components History: Moderately Suspicious EKG: Non-specific Changes Age: 65 or more yrs Risk Factors: >/=3 Risk Factors Troponin: Baseline Trop 16-45 ng/L HEART Score RESULT HEART Score: 7
[2025-07-22 17:11] LABS: Hematocrit 44.7 % (37-53); Hemoglobin 15.20 g/dL (11.27-16.99); Mean Corpuscular HGB Conc 34.0 g/dL (30-55); Mean Corpuscular Hemoglobin 29.9 pg (27-33); Mean Corpuscular Volume 87.8 fl (82-101); Nucleated Red Blood Cells % 0 %; Platelet Count 213 10^3/cmm (157-399); Red Blood Count 5.09 10^6/uL (3.85-5.65); White Blood Count 8.67 10^3/uL (3.29-11.43)
[2025-07-22 17:22] LABS: INR 0.84 (0.8-1.2); Prothrombin Time 12.10 SECONDS (12.1-14.9)
[2025-07-22 17:40] LABS: Troponin(5th) Baseline 193 ng/L (0-15)
[2025-07-22 17:41] LABS: Alanine Aminotransferase 17 U/L (0-41); Albumin Level 4.7 g/dL (3.5-5.2); Alkaline Phosphatase 44 U/L (40-130); Anion Gap 16.7 (5-19); Aspartate Amino Transferase 27 U/L (0-40); Blood Urea Nitrogen 16 mg/dL (8-23); Calcium 9.2 mg/dL (8.5-10.5); Carbon Dioxide 24 mmol/L (22-29); Chloride 105 mmol/L (98-107); Globulin 2.0 g/dL (1.3-4.6); Glucose 73 mg/dL (65-115); Lipase 49 U/L (13-60); Osmolality Calculated 294 mOsm/kg (285-295); Potassium 3.7 mmol/L (3.5-5.1); Sodium 142 mmol/L (136-145); Total Protein 6.7 g/dL (6.6-8.7)
--- NOTE | 2025-07-22 17:50 | P.HP_ITS ---
Providers/Chief Complaint 2 Admitting Physician: Miguel Angel Dorantes MD Primary Care Provider: Alireza Massey MD Chief Complaint: chest pain History of Present Illness Robert Landaverde is a 70 year old male with a past medical history of hypertension, coronary artery disease, CABG x 4, rheumatoid arthritis, asthma who presented to the ER with uncontrolled hypertension and right sided chest pain with chest pressure. Patient was seen and treated earlier today by his primary care Dr. Massey for significantly elevated blood pressure, recorded blood pressure at home was 225/125. Given the patient's history and his chest pain, patient sent to the ER. Patient was seen and treated in the ER by provider . With patient's chest pain and elevated troponin, ER provider contacted metalworking instructor Dr. Vaz who graciously agrees to consultation and management. Patient is admitted inpatient with NSTEMI, given SQ Lovenox per Dr. Crump's request, n.p.o. midnight and will most likely have heart catheterization tomorrow. Patient states that his chest pain resolved after receiving nitroglycerin. Patient denies current chest pain, shortness of breath, nausea, vomiting, diarrhea, abdominal pain, recent falls or injuries, recent illness, dark or tarry stools, or syncope. Patient also states that he has not religiously taken his medications over the last few months, took no home medications this morning, stating that he has felt better this year and thought he was okay did not take his medications. Reviewed patient's lipid panel with him with a total cholesterol greater than 300, advised him to strictly adhere to his medication regimen and to faithfully take his cholesterol medication. Patient is agreeable to admission with continued telemetry monitoring, serial troponins, and cardiology consultation. Review of Systems 2 General: Reports: 10 or more systems reviewed and unremarkable except in HPI and below Card: Reports: chest pain (Resolved after administration of nitroglycerin) Medications/Allergies Home Medications ?Medication ?Instructions ?Recorded ?Confirmed ?Last Taken ?Type fluticasone 100 mcg-salmeterol 50 1 inh inhalation Q12 H #60 ea 11/20/23 07/22/25 03/11/24 Rx mcg/dose blistr powdr for inhalation (Advair Diskus) tiotropium bromide 18 mcg capsule 1 cap inhalation MARYANN LY #60 11/20/23 07/22/25 03/10/24 Rx with inhalation device (Spiriva inhalations with HandiHaler) benralizumab 30 mg/mL subcutaneous 30 mg SUBCUT .q 8 w eeks #1 mL 02/25/24 07/22/25 Unknown Rx auto-injector (Fasenra Pen) albuterol sulfate 90 mcg/actuation 2 puff inhalation Q ID PRN 04/25/24 07/22/25 Unknown History aerosol inhaler Shortness Of Breath aspirin 81 mg tablet,delayed 81 mg PO DAILY 05/28/24 1 09/21/24 Unknown History release (Adult Low Dose Aspirin) atorvastatin 80 mg tablet 80 mg PO DAILY #90 tabs 05/0507/22/25 Unknown Rx clopidogrel 75 mg tablet 75 mg PO DAILY #90 tabs 05/0507/22/25 Unknown Rx escitalopram oxalate 10 mg tablet 10 mg PO DAILY #30 t abs 05/28/24 07/22/25 Unknown Rx (Lexapro) prednisone 10 mg tablet See Rx Instructions .Route 0 01/02/25 07/22/25 Unknown Rx .COMPLEX #90 tabs allopurinol 100 mg tablet 100 mg PO DAILY #30 tabs 07/22/25 Unknown Rx cholecalciferol (vitamin D3) 50 50 mcg PO DAILY #30 ta bs 01/29/25 07/22/25 Unknown Rx mcg (2,000 unit) tablet (Vitamin D3) amoxicillin 875 mg-potassium 1 tab PO BID 7 days #14 t abs 03/19/25 07/22/25 Unknown Rx clavulanate 125 mg tablet prednisone 20 mg tablet 20 mg PO BID 5 days #10 tabs 03/19/25 07/22/25 Unknown Rx hydrocodone 7.5 mg-acetaminophen 1 tab PO Q8H PRN pain 30 days #90 06/28/25 07/22/25 Unknown Rx 325 mg tablet tabs lisinopril 20 mg tablet 20 mg PO DAILY #30 tabs 07/0407/22/25 Unknown Rx nitroglycerin 0.4 mg sublingual 0.4 mg sublingual Q5M PRN chest 07/22/25 07/22/25 Unknown Rx tablet pain #20 tabs Allergies Allergy/AdvReac Type Severity Reaction Status Date / Time Sulfa (Sulfonamide Allergy hives Verified 03/24/25 08:15 Antibiotics) PFSH Acute 2 PFSH: Medical History (Updated 07/22/25 @ 17:19 by Maria Elena Boland MD) Coronary artery disease Persistent asthma Shingles Post-COVID syndrome Pleural effusion associated with pulmonary infection Seronegative rheumatoid arthritis of both hands High risk medication use Inflammatory arthritis Chronic steroid use Osteoarthritis of hands, bilateral Polyarthralgia H/O fracture of leg Chronic obstructive pulmonary disease Degenerative lumbar spinal stenosis Asthma Hypercholesteremia Hypertension Surgical History History of discectomy History of tonsillectomy Family History Other CAD (coronary artery disease) Cancer Lupus Rheumatoid arthritis Denies family history of Diabetes Hyperlipidemia Chronic kidney disease (CKD) Family history of premature coronary artery disease Lung disease Hypertension Stroke Social History Smoking and tobacco/nicotine status: never used tobacco/nicotine Alcohol intake: current Alcohol intake frequency: holidays/special occasions only Alcohol type: beer Substance/Drug Use: never Vitals/I&O/Wt Last Vital Signs Temp 98.0 F 07/22/25 16:39 Pulse 82 07/22/25 16:51 Resp 19 H 07/22/25 16:51 BP 160/100 07/22/25 16:51 Pulse Ox 93 07/22/25 16:51 O2 Del Method Room Air 07/22/25 16:39 Weight last 48 hrs Weight 65.771 kg Physical Exam 2 Const: COMMON NORMALS: no acute distress, average body habitus, patient oriented x3 and well nourished HENMT: COMMON NORMALS: normocephalic, Normal external nose present and moist oral mucous membranes Eye: COMMON NORMALS: Equal, round and reactive pupils present Chest: CHEST: Yes Symmetrical chest wall rise Resp: COMMON NORMALS: normal respiratory effort, No retractions and clear to auscultation bilaterally Cardio: COMMON NORMALS: no JVD, regular rate, S1 normal heart sound present and S2 normal heart sound present GI: COMMON NORMALS: Normal to inspection, nondistended, normoactive bowel sounds present Extremity: COMMON NORMALS: normal to inspection, full ROM and no pedal edema Neuro: COMMON NORMALS: patient oriented x3, CN's II-XII intact bilaterally and moves all extremities Psych: COMMON NORMALS: mental status grossly normal, cooperative, normal affect and speech normal Skin: COMMON NORMALS: no rashes or lesions noted, no wounds and turgor normal Data 07/22/25 17:03 07/22/25 17:03 A&P Assessment and plan 1. NSTEMI (non-ST elevated myocardial infarction): 2. Essential hypertension: 3. Mixed hyperlipidemia: 4. GERD (gastroesophageal reflux disease): 5. Asthma: Plan: NSTEMI Chest pain - Right sided chest pain, dull achy in quality, with pressure that was relieved with sublingual nitroglycerin - Troponin 28--<86--<193 - Cardiac monitoring - EKG: NSR, VR 73, AZ 192, QTC 430, RBBB - Full dose Lovenox - Greatly appreciate cardiology consultation and management with Dr. Vaz - N.p.o. midnight, most likely have heart catheterization tomorrow morning - Echo pending Hypertension, uncontrolled Concern for medical noncompliance - Documented blood pressure outpatient 225/125 this morning, stated he did not take his morning medications and has not been taking medications as frequently as he should - Given 2 blood pressure medications at his PCPs office - Resume home dosing lisinopril Hyperlipidemia Coronary artery disease History of CABG x 4 04/2024 - States has not been taking his statin very well over the last 3 months - Educated importance of taking prescribed medications - Triglycerides 189, cholesterol 302, LDL 179, HDL 85 - Resume home dosing statin GERD - Continue PPI Asthma - CXR: Patient is postop heart with presence of small pleural effusion nonspecific opacity left lower lobe as above could represent atelectasis correlate clinically. - Continue Advair and as needed albuterol - Stable, room air oxygen 99% on admission Depression - Continue Lexapro History of gout - Confirm home dosing allopurinol, resume VTE PPx: SQ Lovenox, SCDs GI PPx: PPI CODE STATUS: Full code PDMP PDMP Reviewed: Not Reviewed Attestations 2 Medical Necessity Statement*: Will necessitate 2 midnight admission secondary to NSTEMI, need for continued telemetry monitoring and cardiology, consultation with cardiac interventions, complex medical management. Diagnoses NSTEMI (non-ST elevated myocardial infarction) I21.4 Essential hypertension I10 Mixed hyperlipidemia E78.2 GERD (gastroesophageal reflux disease) K21.9 Asthma J45.909
[2025-07-22] MEDS: pantoprazole 40 mg SDV IVP (18:06)
--- NOTE | 2025-07-22 18:27 | PC.NURSE ---
admitted in to room 107 from er at 1800.report received.pt is alert and oriented x 4.sr w/occas pvc on monitor.denies chest pain at present.oriented to room environment.instructed to notify staff for any chest pain,sob,or for any concerns at all.pt verb understanding of instructions
--- NOTE | 2025-07-22 18:37 | USCV_ITS ---
Robert Landaverde Age: 70 Gender: M : 1955 Exam Date: 07/22/2025 19:50 Ordering Phys: Cydney Moreno NP Technologist: BEBETO [place] [facility] [place]ication: HTN, CHF, history of CAD s/p CABGx4, rheumotoid arthritis, asthma. BP: 109 / 75 HR: 66 Rhythm: Sinus Technical Quality: Adequate MEASUREMENTS (Male / Female) Normal Values 2D ECHO LV Diastolic Diameter PLAX 3.5 cm 4.2 - 5.9 / 3.9 - 5.3 cm IVS Diastolic Thickness 1.5 cm 0.6 - 1.0 / 0.6 - 0.9 cm IVS Systolic Thickness 2.0 cm LVPW Diastolic Thickness 1.4 cm 0.6 - 1.0 / 0.6 - 0.9 cm LVPW Systolic Thickness 1.6 cm LVOT Diameter 2.0 cm LV Ejection Fraction 2D Teich 65.7 % LV Ejection Fraction MOD 4C 68.2 % LV Ejection Fraction MOD 2C 70.4 % LV Ejection Fraction 2C AL 69.7 % LA Diameter 4.0 cm Aorta at Sinotubular Diameter 3.2 cm IVC Diameter 1.0 cm M-MODE LA Ao Ratio MM 1.1 AV Cusp Separation MM 1.8 cm DOPPLER AV Peak Velocity 120.0 cm/s LVOT Peak Velocity 92.0 cm/s AV Area Cont Eq vti 3.2 cm squared AV Area Cont Eq pk 2.4 cm squared MV Peak Velocity 81.0 cm/s MV Area PHT 3.7 cm squared Mitral E to A Ratio 0.8 TR Peak Velocity 203.0 cm/s TR Peak Gradient 16.5 mmHg TV Peak E Velocity 52.0 cm/s PV Peak Velocity 86.0 cm/s FINDINGS Left Ventricle Hypokinetic basal inferolateral segment.mild left ventricular hypertrophy. Normal LV size ejection fraction of 68%.Grade I/IV diastolic dysfunction (abnormal relaxation filling pattern), normal to mildly elevated filling pressures. Right Ventricle Normal right ventricular size and systolic function. Right Atrium Normal right atrial size. Left Atrium Normal left atrial size. IA Septum Appears to be intact Mitral Valve No gross abnormalities noted Aortic Valve Thickened aortic valve. Tricuspid Valve Trace tricuspid valve regurgitation. Pulmonic Valve No gross abnormalities noted Pericardium No pericardial effusion. Aorta Normal aortic annulus size. IVC Normal inferior vena cava. CONCLUSIONS Hypokinetic basal inferolateral segment.mild left ventricular hypertrophy. Normal LV size ejection fraction of 68%.Grade I/IV diastolic dysfunction (abnormal relaxation filling pattern), normal to mildly elevated filling pressures. Thickened aortic valve. Trace tricuspid valve regurgitation. Estimated pulmonary artery peak systolic pressure within normal limits There is no pericardial effusion. There are no intracardiac masses. Compared to the study from 04/24/2024, the wall motion abnormality appears to be new Dr Yenny Riojas MD FAC (Electronically Signed) Final Date: 24 July 2025 11:13 S
[2025-07-22 20:00] LABS: Troponin 5 2HR 261.4 ng/L (0-15); Troponin 5 2HR Delta 68.4 ABS# (0-10)
--- NOTE | 2025-07-22 20:35 | ECG_ITS ---
[facility] Date: 2025-07-22 Pat Name: Robert Landaverde Department: Room: 107 Gender: Male Chemical Tester: : 1955 Requested By: Maria Elena Boland Order Number: [id number] Natalie MD: Yenny Riojas M.D. Measurements Intervals [place] Rate: 68 P: 69 DE: 182 QRS: -18 QRSD: 142 T: 61 QT: 411 QTc: 439 Interpretive Statements SINUS RHYTHM RIGHT BUNDLE BRANCH BLOCK [120+ ms QRS DURATION, UPRIGHT V1, 40+ ms S IN I/aVL/V4/V5/V6] Compared to ECG 07/22/2025 16:42:23 Ventricular premature complex(es) no longer present Electronically Signed On 07-22-2025 23:57:48 VIDEO PLAYER MECHANIC by Yenny Riojas M.D. [email or web address]
--- NOTE | 2025-07-22 23:12 | ECG_ITS ---
[facility] [place] [facility] Date[facility] 2025-07-22 Pat Name: Robert Landaverde Department: Room: 107 Gender: Male Account Advisor: : 1955 Requested By: Maria Elena Boland Order Number: [id number] Natalie MD: Yenny Riojas M.D. Measurements Intervals [place] Rate: 69 P: 43 [place]: 187 QRS: -28 QRSD: 127 T: 29 QT: 397 QTc: 426 Interpretive Statements SINUS RHYTHM BORDERLINE LEFT AXIS DEVIATION [QRS AXIS < -20] RIGHT BUNDLE BRANCH BLOCK [120+ ms QRS DURATION, UPRIGHT V1, 40+ ms S IN I/aVL/V4/V5/V6] Compared to ECG 07/22/2025 20:35:30 No significant changes Electronically Signed On 07-22-2025 23:56:57 GENERAL OPERATIONS MANAGER by Yenny Riojas M.D. [email or web address]
[2025-07-23] VITALS (55 sets, daily range): BP systolic 99–162; BP diastolic 45–93; PULSE 64–86; RESP 5–25; TEMP 36.3–36.9; O2SAT 91–98
[2025-07-23 00:08] LABS: Troponin 5 6HR 473.4 ng/L (0-15); Troponin 5 6HR Delta 280.4 ng/L (0-12)
[2025-07-23 06:06] LABS: Hematocrit 41.1 % (37-53); Hemoglobin 14.10 g/dL (11.27-16.99); Mean Corpuscular HGB Conc 34.3 g/dL (30-55); Mean Corpuscular Hemoglobin 30.6 pg (27-33); Mean Corpuscular Volume 89.2 fl (82-101); Nucleated Red Blood Cells % 0 %; Platelet Count 179 10^3/cmm (157-399); Red Blood Count 4.61 10^6/uL (3.85-5.65); White Blood Count 6.50 10^3/uL (3.29-11.43)
[2025-07-23 06:14] LABS: Alanine Aminotransferase 15 U/L (0-41); Albumin Level 3.9 g/dL (3.5-5.2); Alkaline Phosphatase 34 U/L (40-130); Anion Gap 12.1 (5-19); Aspartate Amino Transferase 25 U/L (0-40); Blood Urea Nitrogen 16 mg/dL (8-23); Calcium 8.1 mg/dL (8.5-10.5); Carbon Dioxide 25 mmol/L (22-29); Chloride 107 mmol/L (98-107); Globulin 1.6 g/dL (1.3-4.6); Glucose 103 mg/dL (65-115); Magnesium 2.1 mg/dL (1.7-2.3); Osmolality Calculated 291 mOsm/kg (285-295); Potassium 4.1 mmol/L (3.5-5.1); Sodium 140 mmol/L (136-145); Total Protein 5.5 g/dL (6.6-8.7)
--- NOTE | 2025-07-23 08:09 | P.CONIM_ITS ---
<Statement entered by Christofer Vaz M.D - 07/26/25 13:30> Patient was cared for in conjunction with an advanced practice practitioner.? I reviewed the chart and all pertinent data including imaging, telemetry, and laboratory results.? I discussed the patient in detail with the advanced practice practitioner.? Please see? their documentation for consult note, testing results and agreed upon plan of care for the patient. Providers/Reason For Consult 2 Consulting Physician/Specialty*: Dr Vaz, interventional cardiology Reason for Consult*: Chest pain, NSTEMI Requesting Physician: Miguel Angel Dorantes MD Attending Physician: Miguel Angel Dorantes MD Primary Care Provider: Alireza Massey MD History of Present Illness History of Present Illness Robert Landaverde is a 70 year old male with past medical history of hypertension, CAD status post CABG x 4 in 2022 at [facility] in [place], history of asthma. He presented to the emergency room yesterday with chest pain, hypertensive emergency. Troponin series 193?>[id number]?>473. Laboratory otherwise unremarkable. EKG revealed sinus rhythm, borderline left axis deviation, right bundle branch block. No ischemic ST or T wave changes. He notes he had a stress test and echocardiogram done about 1 month ago by the cardiovascular surgeon following him post CABG, siad to be normal. Review of Systems 2 Const: Denies: fever(s), chills, change in weight, fatigue or diaphoresis Eyes: Denies: change in vision ENMT: Denies: epistaxis Card: Reports: chest pain; Denies: palpitations, irregular heart rhythm, edema, syncope, pre-syncope, dyspnea on exertion, orthopnea or leg pain with exertion Resp: Denies: dyspnea, productive cough or wheezing GI: Denies: nausea, vomiting, hematemesis, hematochezia or melena : Denies: hematuria Musc: Denies: extremity swelling Obi/Lymph: Denies: easy bruising or easy bleeding Medications/Allergies Home Medications ?Medication ?Instructions ?Recorded ?Confirmed ?Last Taken ?Type fluticasone 100 mcg-salmeterol 50 1 inh inhalation Q12 H #60 ea 11/20/23 07/22/25 03/11/24 Rx mcg/dose blistr powdr for inhalation (Advair Diskus) tiotropium bromide 18 mcg capsule 1 cap inhalation MARYANN LY #60 11/20/23 07/22/25 03/10/24 Rx with inhalation device (Spiriva inhalations with HandiHaler) benralizumab 30 mg/mL subcutaneous 30 mg SUBCUT .q 8 w eeks #1 mL 02/25/24 07/22/25 Unknown Rx auto-injector (Fasenra Pen) albuterol sulfate 90 mcg/actuation 2 puff inhalation Q ID PRN 04/25/24 07/22/25 Unknown History aerosol inhaler Shortness Of Breath aspirin 81 mg tablet,delayed 81 mg PO DAILY 05/28/24 1 09/21/24 Unknown History release (Adult Low Dose Aspirin) atorvastatin 80 mg tablet 80 mg PO DAILY #90 tabs 05/0507/22/25 Unknown Rx clopidogrel 75 mg tablet 75 mg PO DAILY #90 tabs 05/0507/22/25 Unknown Rx escitalopram oxalate 10 mg tablet 10 mg PO DAILY #30 t abs 05/28/24 07/22/25 Unknown Rx (Lexapro) prednisone 10 mg tablet See Rx Instructions .Route 0 01/02/25 07/22/25 Unknown Rx .COMPLEX #90 tabs allopurinol 100 mg tablet 100 mg PO DAILY #30 tabs 07/22/25 Unknown Rx cholecalciferol (vitamin D3) 50 50 mcg PO DAILY #30 ta bs 01/29/25 07/22/25 Unknown Rx mcg (2,000 unit) tablet (Vitamin D3) amoxicillin 875 mg-potassium 1 tab PO BID 7 days #14 t abs 03/19/25 07/22/25 Unknown Rx clavulanate 125 mg tablet prednisone 20 mg tablet 20 mg PO BID 5 days #10 tabs 03/19/25 07/22/25 Unknown Rx hydrocodone 7.5 mg-acetaminophen 1 tab PO Q8H PRN pain 30 days #90 06/28/25 07/22/25 Unknown Rx 325 mg tablet tabs lisinopril 20 mg tablet 20 mg PO DAILY #30 tabs 07/0407/22/25 Unknown Rx nitroglycerin 0.4 mg sublingual 0.4 mg sublingual Q5M PRN chest 07/22/25 07/22/25 Unknown Rx tablet pain #20 tabs Allergies Allergy/AdvReac Type Severity Reaction Status Date / Time Sulfa (Sulfonamide Allergy hives Verified 03/24/25 08:15 Antibiotics) Current Medications Generic Name Dose Route Start Last Admin Trade Name Chinmayq PRN Reason Stop Dose Admin Albuterol Sulfate 2.5 mg 07/22/25 20:00 07/23/25 07:32 Albuterol 2.5 Mg/3 Ml Neb INHALATION 2.5 mg QID.RESPIRATORY FROYLAN Administration Aspirin 81 mg 07/23/25 05:00 07/23/25 06:49 Aspirin 81 Mg Ec Tablet PO 81 mg DAILY FROYLAN Administration Atorvastatin Calcium 80 mg 07/22/25 21:00 07/22/25 21:57 Atorvastatin 40 Mg Tablet PO 80 mg BEDTIME FROYLAN Administration Budesonide 0.5 mg 07/22/25 20:00 07/23/25 07:32 Budesonide 0.5 Mg/2 Ml Neb INHALATION 0.5 mg BID.RESPIRATORY FROYLAN Administration Enoxaparin Sodium 60 mg 07/23/25 05:00 07/23/25 06:49 Enoxaparin 60 Mg/0.6 Ml Syringe SUBCUT Not Given Q12H FROYLAN Escitalopram Oxalate 10 mg 07/23/25 05:00 07/23/25 06:49 Escitalopram 10 Mg Tablet PO 10 mg DAILY FROYLAN Administration Lisinopril 20 mg 07/23/25 05:00 07/23/25 06:49 Lisinopril 20 Mg Tablet PO 20 mg DAILY FROYLAN Administration Pantoprazole Sodium 40 mg 07/22/25 17:45 07/22/25 18:06 Pantoprazole 40 Mg Sdv IVP 40 mg Q24H FROYLAN Administration PFSH Acute 2 PFSH: Medical History Coronary artery disease Persistent asthma Shingles Post-COVID syndrome Pleural effusion associated with pulmonary infection Seronegative rheumatoid arthritis of both hands High risk medication use Inflammatory arthritis Chronic steroid use Osteoarthritis of hands, bilateral Polyarthralgia H/O fracture of leg Chronic obstructive pulmonary disease Degenerative lumbar spinal stenosis Asthma Hypercholesteremia Hypertension Surgical History History of discectomy History of tonsillectomy Family History Other CAD (coronary artery disease) Cancer Lupus Rheumatoid arthritis Denies family history of Diabetes Hyperlipidemia Chronic kidney disease (CKD) Family history of premature coronary artery disease Lung disease Hypertension Stroke Social History Smoking and tobacco/nicotine status: never used tobacco/nicotine Alcohol intake: current Alcohol intake frequency: holidays/special occasions only Alcohol type: beer Substance/Drug Use: never Vitals/I&O/Wt Last Vital Signs Temp 97.3 F L 07/23/25 07:24 Pulse 64 07/23/25 07:30 Resp 16 07/23/25 07:30 BP 132/84 07/23/25 07:24 Pulse Ox 96 07/23/25 07:30 O2 Del Method Room Air 07/23/25 07:30 07/22/25 07/23/25 07/23/25 22:59 06:59 14:59 Intake Total 360 / 360 Balance 360 / 360 Weight last 48 hrs Weight 153 lb 10.595 oz Weight 154 lb Weight 145 lb Physical Exam 2 Const: COMMON NORMALS: no acute distress and patient oriented x3 GENERAL APPEARANCE: cooperative and comfortable ORIENTATION/CONSCIOUSNESS: Yes awake, Yes oriented to person, Yes oriented to place and Yes oriented to time Chest: COMMONS NORMALS: normal inspection of the chest and normal palpation of entire chest wall CHEST: Yes Symmetrical chest wall rise Resp: COMMON NORMALS: normal respiratory effort, No retractions, No use of accessory muscles and clear to auscultation bilaterally EFFORT & INSPECTION: Yes symmetric chest movement AUSCULTATION: clear to auscultation bilaterally Cardio: COMMON NORMALS: regular rate, regular rhythm, S1 normal heart sound present, S2 normal heart sound present, No gallops present (Cardio), No clicks present (Cardio), No murmurs present (Cardio) and No rub (Cardio) RATE: r egular rate RHYTHM: regular rhythm HEART SOUNDS: S1 normal heart sound present and S2 normal heart sound present PERIPHERAL PULSES: radial pulses present Extremity: COMMON NORMALS: no pedal edema Neuro: COMMON NORMALS: patient oriented x3 and moves all extremities S ENSORIUM/ORIENTATION: Yes oriented to person, Yes oriented to place and Yes oriented to time Data 07/23/25 05:29 07/23/25 05:29 A&P Assessment and plan 1. NSTEMI (non-ST elevated myocardial infarction): 2. S/P CABG x 4: 3. Coronary artery disease: 4. CHF (congestive heart failure): 5. Mixed hyperlipidemia: 6. Hypertensive urgency: 7. Chest pain: 8. Eosinophilic asthma: 9. Chronic obstructive pulmonary disease: Plan: Chest pain-free after receiving nitroglycerin. He was started on Lovenox for anticoagulation yesterday. Plan is for coronary angiogram this morning, he has been n.p.o. PDMP PDMP Reviewed: Not Reviewed Coding Level of Care Code Acute Code for [facility] Diagnoses NSTEMI (non-ST elevated myocardial infarction) I21.4 S/P CABG x 4 Z95.1 Coronary artery disease I25.10 CHF (congestive heart failure) I50.9 Mixed hyperlipidemia E78.2 Hypertensive urgency I16.0 Chest pain R07.9 Eosinophilic asthma J82.83 Chronic obstructive pulmonary disease J44.9
--- NOTE | 2025-07-23 08:30 | P.PN_ITS ---
Subjective 2 Subjective: Patient is a very pleasant 70-year-old male seen and examined at bedside on hospital rounds today. Patient sitting up in bed stating that his chest pain is resolved and he has no new or worsening symptoms this morning. Vital signs remained stable, blood pressure much better controlled 149/93. Patient heart cath with Dr. Crump with SVG to RCA with severe proximal stenosis status post PCI with 1 stent. Recommendation dual antiplatelet therapy with aspirin and Plavix and high intensity statin therapy. Education given to patient that he must be compliant with his home medication regimen. Reviewed, CBC within normal limits, GFR 73.9. Patient will remain overnight for continued monitoring, will most likely discharge within the next 24 hours. All questions and concerns addressed with the patient at the bedside today. Vitals/I&O/Wt Last Vital Signs Temp 97.3 F L 07/23/25 07:24 Pulse 64 07/23/25 07:30 Resp 16 07/23/25 07:30 BP 132/84 07/23/25 07:24 Pulse Ox 96 07/23/25 07:30 O2 Del Method Room Air 07/23/25 07:30 07/22/25 07/23/25 07/23/25 22:59 06:59 14:59 Intake Total 360 / 360 Balance 360 / 360 Weight last 48 hrs Weight 69.7 kg Weight 69.853 kg Weight 65.771 kg Physical Exam 2 Const: COMMON NORMALS: no acute distress and patient oriented x3 GENERAL APPEARANCE: cooperative and comfortable ORIENTATION/CONSCIOUSNESS: Yes awake, Yes oriented to person, Yes oriented to place and Yes oriented to time Chest: COMMONS NORMALS: normal inspection of the chest and normal palpation of entire chest wall CHEST: Yes Symmetrical chest wall rise Resp: COMMON NORMALS: normal respiratory effort, No retractions, No use of accessory muscles and clear to auscultation bilaterally EFFORT & INSPECTION: Yes symmetric chest movement AUSCULTATION: clear to auscultation bilaterally Cardio: COMMON NORMALS: regular rate, regular rhythm, S1 normal heart sound present, S2 normal heart sound present, No gallops present (Cardio), No clicks present (Cardio), No murmurs present (Cardio) and No rub (Cardio) RATE: r egular rate RHYTHM: regular rhythm HEART SOUNDS: S1 normal heart sound present and S2 normal heart sound present PERIPHERAL PULSES: radial pulses present Extremity: COMMON NORMALS: no pedal edema Neuro: COMMON NORMALS: patient oriented x3 and moves all extremities S ENSORIUM/ORIENTATION: Yes oriented to person, Yes oriented to place and Yes oriented to time Skin: OTHER: Right groin catheter incision site no drainage noted and no erythema. Data 07/23/25 05:29 07/23/25 05:29 A&P Assessment and plan 1. NSTEMI (non-ST elevated myocardial infarction): 2. Essential hypertension: 3. Mixed hyperlipidemia: 4. GERD (gastroesophageal reflux disease): 5. Asthma: Plan: NSTEMI Chest pain - Right sided chest pain, dull achy in quality, with pressure that was relieved with sublingual nitroglycerin - Troponin 28--<86--<193--<261.4--<473.4 - Cardiac monitoring - EKG: NSR, VR 73, HI 192, QTC 430, RBBB - Full dose Lovenox - Greatly appreciate cardiology consultation and management with Dr. Vaz - S/p heart cath with 1 stent, continued monitoring - Echo Hypertension, uncontrolled Concern for medical noncompliance - Documented blood pressure outpatient 225/125 this morning, stated he did not take his morning medications and has not been taking medications as frequently as he should - Given 2 blood pressure medications at his PCPs office - Resume home dosing lisinopril Hyperlipidemia Coronary artery disease History of CABG x 4 04/2024 - States has not been taking his statin very well over the last 3 months - Educated importance of taking prescribed medications - Triglycerides 189, cholesterol 302, LDL 179, HDL 85 - Statin, encouraged compliance GERD - Continue PPI Asthma - CXR: Patient is postop heart with presence of small pleural effusion nonspecific opacity left lower lobe as above could represent atelectasis correlate clinically. - Continue Advair and as needed albuterol - Stable, room air oxygen 99% on admission Depression - Continue Lexapro History of gout - Confirm home dosing allopurinol, resume VTE PPx: SQ Lovenox, SCDs GI PPx: PPI CODE STATUS: Full code PDMP PDMP Reviewed: Not Reviewed Attestations 2 Medical Necessity Statement*: Will necessitate continued 2 midnight admission secondary to NSTEMI, need for continued telemetry monitoring and cardiology, s/p heart stent, complex medical management. Coding Level of Care Code 03041 Diagnoses NSTEMI (non-ST elevated myocardial infarction) I21.4 Essential hypertension I10 Mixed hyperlipidemia E78.2 GERD (gastroesophageal reflux disease) K21.9 Asthma J45.909
--- NOTE | 2025-07-23 09:07 | W.PM.OPSUD ---
Surgery/Procedure H&P Update DATE OF PROCEDURE: July 23, 2025 DATE H&P PERFORMED: 07/23/25 H&P UPDATE INFORMATION: I have reviewed H&P completed within last 30 days, I have examined patient prior to procedure and No changes to prior documentation PREOP DIAGNOSIS: NSTEMI PRIMARY INDICATION FOR PROCEDURE: NSTEMI PLANNED PROCEDURE: Left heart cath with possible percutaneous coronary intervention PATIENT REASSESSED PRIOR TO SEDATION, WITH NO CHANGE NOTED: Yes PHYSICAL EXAM: alert, oriented x 3, clear to auscultation bilaterally and regular rate & rhythm AIRWAY EVAL/ANESTHESIA PLAN: normal airway, ASA III, Local Anesthesia, Risks, benefits & alternatives of sedation and/or procedure discussed and Patient agrees to continue as planned ADDITIONAL INFORMATION: Moderate sedation
--- NOTE | 2025-07-23 09:57 | PM.PROC ---
Procedure Note: Date of procedure: 07/23/25 Pre-procedure diagnosis: NSTEMI Post-procedure diagnosis: other (Severe SVG to RCA stenosis s/p PCI with 1 stent) Procedure: FLORES to LAD is patent. SVG to OM is patent. SVG to RCA has severe proximal stenosis s/p PCI with 1 stent. Dual antiplatelet therapy with aspirin and plavix High intensity statin therapy Performing Provider: Christofer Vaz Complications: None Condition: stable Disposition: floor Coding Level of Care Code Acute Code for [facility]
[2025-07-23] MEDS: pantoprazole 40 mg SDV IVP (16:55)
[2025-07-24] VITALS (15 sets, daily range): BP systolic 111–165; BP diastolic 56–87; PULSE 65–78; RESP 10–23; TEMP 36.4–36.9; O2SAT 94–97
[2025-07-24 03:59] LABS: Hematocrit 40.0 % (37-53); Hemoglobin 13.60 g/dL (11.27-16.99); Mean Corpuscular HGB Conc 34.0 g/dL (30-55); Mean Corpuscular Hemoglobin 29.6 pg (27-33); Mean Corpuscular Volume 87.1 fl (82-101); Nucleated Red Blood Cells % 0 %; Platelet Count 158 10^3/cmm (157-399); Red Blood Count 4.59 10^6/uL (3.85-5.65); White Blood Count 6.13 10^3/uL (3.29-11.43)
[2025-07-24 04:31] LABS: Alanine Aminotransferase 14 U/L (0-41); Albumin Level 3.9 g/dL (3.5-5.2); Alkaline Phosphatase 37 U/L (40-130); Anion Gap 13.2 (5-19); Aspartate Amino Transferase 19 U/L (0-40); Blood Urea Nitrogen 12 mg/dL (8-23); Calcium 8.4 mg/dL (8.5-10.5); Carbon Dioxide 26 mmol/L (22-29); Chloride 105 mmol/L (98-107); Creatinine Clr Calc Pharmacy 68.4877; Globulin 1.7 g/dL (1.3-4.6); Glucose 102 mg/dL (65-115); Magnesium 2.2 mg/dL (1.7-2.3); Osmolality Calculated 290 mOsm/kg (285-295); Potassium 4.2 mmol/L (3.5-5.1); Sodium 140 mmol/L (136-145); Total Protein 5.6 g/dL (6.6-8.7)
--- NOTE | 2025-07-24 07:59 | PM.DCS ---
Discharge Providers Date of Admission: 07/22/25 17:32 Date of Discharge: July 24, 2025 Attending Provider at Admission: Miguel Angel Dorantes MD Attending Provider at Discharge: Cydney Moreno NP Primary Care Provider: Alireza Massey MD Diagnoses at Discharge Discharge Diagnosis 1. NSTEMI (non-ST elevated myocardial infarction): 2. Essential hypertension: 3. Mixed hyperlipidemia: 4. Gastroesophageal reflux disease with esophagitis without hemorrhage: 5. Mild intermittent asthma without complication: Reason for Visit Reason for Visit: chest pain Brief History: Admission: Robert Landaverde is a 70 year old male with a past medical history of hypertension, coronary artery disease, CABG x 4, rheumatoid arthritis, asthma who presented to the ER with uncontrolled hypertension and right sided chest pain with chest pressure. Patient was seen and treated earlier today by his primary care Dr. Massey for significantly elevated blood pressure, recorded blood pressure at home was 225/125. Given the patient's history and his chest pain, patient sent to the ER. Patient was seen and treated in the ER by provider . With patient's chest pain and elevated troponin, ER provider contacted medical staff credentialing coordinator Dr. Vaz who graciously agrees to consultation and management. Patient is admitted inpatient with NSTEMI, given SQ Lovenox per Dr. Crump's request, n.p.o. midnight and will most likely have heart catheterization tomorrow. Patient states that his chest pain resolved after receiving nitroglycerin. Patient denies current chest pain, shortness of breath, nausea, vomiting, diarrhea, abdominal pain, recent falls or injuries, recent illness, dark or tarry stools, or syncope. Patient also states that he has not religiously taken his medications over the last few months, took no home medications this morning, stating that he has felt better this year and thought he was okay did not take his medications. Reviewed patient's lipid panel with him with a total cholesterol greater than 300, advised him to strictly adhere to his medication regimen and to faithfully take his cholesterol medication. Patient is agreeable to admission with continued telemetry monitoring, serial troponins, and cardiology consultation. Hospital Course Hospital Course NSTEMI Chest pain - Right sided chest pain, dull achy in quality, with pressure that was relieved with sublingual nitroglycerin - Troponin 28--<86--<193--<261.4--<473.4 - Cardiac monitoring - EKG: NSR, VR 73, NH 192, QTC 430, RBBB - Full dose Lovenox - Greatly appreciate cardiology consultation and management with Dr. Vaz - S/p heart cath with 1 stent, continued monitoring - Echo Hypertension, uncontrolled Concern for medical noncompliance - Documented blood pressure outpatient 225/125 this morning, stated he did not take his morning medications and has not been taking medications as frequently as he should - Given 2 blood pressure medications at his PCPs office - Resume home dosing lisinopril Hyperlipidemia Coronary artery disease History of CABG x 4 04/2024 - States has not been taking his statin very well over the last 3 months - Educated importance of taking prescribed medications - Triglycerides 189, cholesterol 302, LDL 179, HDL 85 - Statin, encouraged compliance GERD - Continue PPI Asthma - CXR: Patient is postop heart with presence of small pleural effusion nonspecific opacity left lower lobe as above could represent atelectasis correlate clinically. - Continue Advair and as needed albuterol - Stable, room air oxygen 99% on admission Depression - Continue Lexapro History of gout - Confirm home dosing allopurinol, resume VTE PPx: SQ Lovenox, SCDs GI PPx: PPI CODE STATUS: Full code Patient did very well after stent placement, no chest pain and no dyspnea at discharge. Discharges in stable condition to continue optimized medical treatment - educated patient on benefits of medical compliance to prescribed medications. Patient will follow up with PCP within 1-3 days of discharge and cardiology at next available appoinment. Advised patient to keep a blood pressure log and bring with him to his next cardiology/PCP appointments, blood pressure medications may need to be adjusted. Patient will continue cardiac diet. Greatly appreciate cardiology in coordination of discharge planning. All questions and concerns addressed with patient prior to discharge. Physical Exam Const: COMMON NORMALS: no acute distress and patient oriented x3 GENERAL APPEARANCE: cooperative and comfortable ORIENTATION/CONSCIOUSNESS: Yes awake, Yes oriented to person, Yes oriented to place and Yes oriented to time Chest: COMMONS NORMALS: normal inspection of the chest and normal palpation of entire chest wall CHEST: Yes Symmetrical chest wall rise Resp: COMMON NORMALS: normal respiratory effort, No retractions, No use of accessory muscles and clear to auscultation bilaterally EFFORT & INSPECTION: Yes symmetric chest movement AUSCULTATION: clear to auscultation bilaterally Cardio: COMMON NORMALS: regular rate, regular rhythm, S1 normal heart sound present, S2 normal heart sound present, No gallops present (Cardio), No clicks present (Cardio), No murmurs present (Cardio) and No rub (Cardio) RATE: regular rate RHYTHM: regular rhythm HEART SOUNDS: S1 normal heart sound present and S2 normal heart sound present PERIPHERAL PULSES: radial pulses present Extremity: COMMON NORMALS: no pedal edema Neuro: COMMON NORMALS: patient oriented x3 and moves all extremities SENSORIUM/ORIENTATION: Yes oriented to person, Yes oriented to place and Yes oriented to time Skin: OTHER: Right groin catheter insertion site no drainage noted and no erythema. 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 echo complete* [id number]] Routine Ultrasound 07/22/25 18:37 Taken Radiology Impressions Chest X-Ray 07/22/25 16:41 IMPRESSION: Patient is postop heart with presence of small pleural effusion nonspecific opacity left lower lobe as above could represent atelectasis correlate clinically. Laboratory Results WBC 6.13 10^3/uL (3.29-11.43) 07/24/25 03:26 RBC 4.59 10^6/uL (3.85-5.65) 07/24/25 03:26 Hgb 13.60 g/dL (11.27-16.99) 07/24/25 03:26 Hct 40.0 % (37-53) 07/24/25 03:26 MCV 87.1 fl (82-101) 07/24/25 03:26 MCH 29.6 pg (27-33) 07/24/25 03:26 MCHC 34.0 g/dL (30-55) 07/24/25 03:26 RDW 12.8 % (12.1-15.1) 07/24/25 03:26 Plt Count 158 10^3/cmm (157-399) 07/24/25 03: MPV 9.6 fL (7.4-10.4) 07/24/25 03: Neut % (Auto) 71.6 % 07/24/25 03:26 Lymph % (Auto) 9.3 % 07/24/25 03:26 Cotton % (Auto) 10.0 % 07/24/25 03:26 Eos % (Auto) 7.3 % 07/24/25 03:26 Baso % (Auto) 1.1 % 07/24/25 03:26 Neut # (Auto) 4.39 10^3/uL (1.8-7.7) 07/24/25 03:26 Lymph # (Auto) 0.6 10^3/uL (0.8-4.8) L 07/24/25 03:26 Cotton # (Auto) 0.6 10^3/uL (0.2-0.9) 07/24/25 03: Eos # (Auto) 0.5 10^3/uL (0.0-0.8) 07/24/25 03:26 Baso # (Auto) 0.1 10^3/uL (0.0-0.1) 07/24/25 03: Nucleated RBC % (auto) 0 % 07/24/25 03: Nucleated RBCs # 0.0 /100WBC 07/24/25 03:26 PT 12.10 SECONDS (12.1-14.9) 07/22/25 17:03 INR 0.84 (0.8-1.2) 07/22/25 17:03 Sodium 140 mmol/L (136-145) 07/24/25 03:26 Potassium 4.2 mmol/L (3.5-5.1) 07/24/25 03:26 Chloride 105 mmol/L (98-107) 07/24/25 03:26 Carbon Dioxide 26 mmol/L (22-29) 07/24/25 03:26 Anion Gap 13.2 (5-19) 07/24/25 03:26 BUN 12 mg/dL (8-23) 07/24/25 03:26 Creatinine 0.9 mg/dL (0.7-1.2) 07/24/25 03:26 GFR Calculation 83.4 mL/min (90-130) L 07/24/25 03:26 Glucose 102 mg/dL (65-115) 07/24/25 03:26 Calculated Osmolality 290 mOsm/kg (285-295) 07/24/25 03:26 Calcium 8.4 mg/dL (8.5-10.5) L 07/24/25 03:26 Magnesium 2.2 mg/dL (1.7-2.3) 07/24/25 03:26 Total Bilirubin 0.6 mg/dL (0.15-1.2) 07/24/25 03:26 AST 19 U/L (0-40) 07/24/25 03:26 ALT 14 U/L (0-41) 07/24/25 03:26 Alkaline Phosphatase 37 U/L (40-130) L 07/24/25 03:26 Troponin T Baseline 193 ng/L (0-15) H* 07/22/25 17:03 Troponin T 120 Minute 261.4 ng/L (0-15) H 07/22/25 18:56 Delta Troponin T 68.4 ABS# (0-10) H* 07/22/25 18:56 Troponin T Hi Sens 6Hr 473.4 ng/L (0-15) H 07/22/25 23:20 Troponin T Hi Sens 6Hr Delta 280.4 ng/L (0-12) H* 07/22/25 23:20 Total Protein 5.6 g/dL (6.6-8.7) L 07/24/25 03:26 Albumin 3.9 g/dL (3.5-5.2) 07/24/25 03:26 Globulin 1.7 g/dL (1.3-4.6) 07/24/25 03:26 Lipase 49 U/L (13-60) 07/22/25 17:03 Vitals Last Vital Signs Temp 97.6 F 07/24/25 07:42 Pulse 73 07/24/25 07:42 Resp 13 07/24/25 07:42 BP 165/87 07/24/25 07:42 Pulse Ox 96 07/24/25 07:42 O2 Del Method Room Air 07/24/25 07:42 Discharge Plan Discharge Patient Disposition: Home Condition: Stable Prescriptions: Continued aspirin [Adult Low Dose Aspirin] 81 mg tablet,delayed release (DR/EC) 81 mg PO DAILY clopidogrel 75 mg tablet 75 mg PO DAILY Qty: 90 3RF atorvastatin 80 mg tablet 80 mg PO DAILY Qty: 90 3RF cholecalciferol (vitamin D3) [Vitamin D3] 50 mcg (2,000 unit) tablet 50 mcg PO DAILY Qty: 30 11RF lisinopril 20 mg tablet 20 mg PO DAILY Qty: 30 11RF nitroglycerin 0.4 mg tablet, sublingual 0.4 mg sublingual Q5M PRN (Reason: chest pain) Qty: 20 11RF Rx Instructions: do not exceed 3 doses per episode Fasenra Pen 30 mg/mL auto-injector 30 mg SUBCUT .q 8 weeks Qty: 1 3RF Rx Instructions: 1 ml q 28 days X 3 doses and then 1 ml q 8 weeks thereafter. hydrocodone-acetaminophen 7.5-325 mg tablet 1 tab PO Q8H PRN (Reason: pain) 30 Days Qty: 90 0RF albuterol sulfate 90 mcg/actuation HFA aerosol inhaler 2 puff INHALATION QID PRN (Reason: Shortness Of Breath) Held prednisone 10 mg tablet See Rx Instructions .ROUTE .COMPLEX Qty: 90 1RF Hold Instructions: Resume on 07/27/25. Review medication with PCP Dose Instruction: TAKE 1 TABLET BY MOUTH EVERY DAY Rx Instructions: TAKE 1/2 TABLET BY MOUTH EVERY DAY metoprolol succinate 50 mg tablet extended release 24 hr 50 mg PO DAILY Hold Instructions: Resume on 07/27/25. Review prescription with PCP Discharge Order = DC NOW: Discharge Order (Routine); Ordered 07/24/25 Ordered By: Cydney Moreno Referrals: Luci Dugan FNP [Nurse Practitioner, Cardiology] - 08/17/25 2:15 pm Alireza Massey MD [Primary Care Provider, Family Practice] - 08/05/25 9:10 am Discharge Diet: Cardiac Discharge Activity: Resume usual activity Patient Instructions: Hypertension, Coronary Artery Disease (DC), Cardiac Rehabilitation (DC), Coronary Intravascular Stent Placement (GEN), High Troponin Levels (GEN), Chest Pain Stoplight, Post Angiogram Home Care Instructions, Patient Portal & Arianne Instructions Discharge Attestations Time Spent in Discharge Care*: greater than 30 min Quality Metrics Clinical Quality Measures [ Acute Myocardial Infaction { Clinical Trial Participant: No; Contraindication to aspirin: None; Aspirin prescribed; Contraindication to statin: None; Statin prescribed;}] Coding Level of Care Code 98146 Diagnoses NSTEMI (non-ST elevated myocardial infarction) I21.4 Essential hypertension I10 Mixed hyperlipidemia E78.2 Gastroesophageal reflux disease with esophagitis without hemorrhage K21.00 Esophagitis bleeding: without hemorrhage Esophagitis presence: with esophagitis Mild intermittent asthma without complication J45.20 Asthma complication type: uncomplicated Asthma persistence: intermittent Asthma severity: mild
--- NOTE | 2025-07-24 08:35 | P.PN_ITS ---
<Statement entered by Christofer Vaz M.D - 07/26/25 13:36> Patient was cared for in conjunction with an advanced practice practitioner.? I reviewed the chart and all pertinent data including imaging, telemetry, and laboratory results.? I discussed the patient in detail with the advanced practice practitioner.? Please see? their documentation for progress note, testing results and agreed upon plan of care for the patient. Subjective 2 Subjective: He has done well overnight, no chest pain, shortness of breath. No complications with right femoral cath site, has ambulated in the room without difficulty. Vitals/I&O/Wt Last Vital Signs Temp 97.6 F 07/24/25 07:42 Pulse 68 07/24/25 08:12 Resp 18 07/24/25 08:12 BP 165/87 07/24/25 07:42 Pulse Ox 97 07/24/25 08:12 O2 Del Method Room Air 07/24/25 08:12 07/23/25 07/24/25 07/24/25 22:59 06:59 14:59 Intake Total 640 / 1370 490 / 1370 240 / 240 Balance 640 / 970 490 / 970 240 / 240 Weight last 48 hrs Weight 138 lb 0.15 oz Weight 153 lb 10.595 oz Weight 154 lb Weight 145 lb Physical Exam 2 Const: COMMON NORMALS: no acute distress and patient oriented x3 GENERAL APPEARANCE: cooperative ORIENTATION/CONSCIOUSNESS: Yes awake, Yes oriented to person, Yes oriented to place and Yes oriented to time Chest: COMMONS NORMALS: normal inspection of the chest and normal palpation of entire chest wall CHEST: Yes Symmetrical chest wall rise Resp: COMMON NORMALS: normal respiratory effort, No retractions, No use of accessory muscles and clear to auscultation bilaterally AUSCULTATION: clear to auscultation bilaterally Cardio: COMMON NORMALS: regular rate, regular rhythm, S1 normal heart sound present, S2 normal heart sound present, No gallops present (Cardio), No clicks present (Cardio), No murmurs present (Cardio) and No rub (Cardio) RATE: r egular rate RHYTHM: regular rhythm HEART SOUNDS: S1 normal heart sound present and S2 normal heart sound present PERIPHERAL PULSES: radial pulses present positive right 2+ and femoral pulses present positive right 2+ Neuro: COMMON NORMALS: patient oriented x3 and moves all extremities S ENSORIUM/ORIENTATION: Yes oriented to person, Yes oriented to place and Yes oriented to time Skin: WOUNDS: Yes surgical site (no hematoma palpable) Details: no odor Data 07/24/25 03:26 07/24/25 03:26 A&P Assessment and plan 1. Coronary artery disease: 2. S/P CABG x 4: 3. Hypertensive urgency: 4. NSTEMI (non-ST elevated myocardial infarction): 5. Mixed hyperlipidemia: Plan: He is s/p GERBER x1 to SVG to RCA. Continue aspirin, Plavix, lisinopril, atorvastatin 80mg daily. Follow up in the cardiology clinic in 2 weeks. Maintain BP log for medication adjustments. PDMP PDMP Reviewed: Not Reviewed Attestations 2 Medical Necessity Statement*: dc home Coding Level of Care Code Acute Code for g Fwd Diagnoses Coronary artery disease I25.10 S/P CABG x 4 Z95.1 Hypertensive urgency I16.0 NSTEMI (non-ST elevated myocardial infarction) I21.4 Mixed hyperlipidemia E78.2
--- NOTE | 2025-07-24 11:08 | PC.NURSE ---
discharge to home Pt is informed about his follow up appointments, emphasize the importance of taking his plavix and aspirin and other heart meds as well as to discus with his pcp the hold meds. Educated pt on activity restrictions post cath and wound care, informed pt on chest pain stoplight and to check his BP at home. provided pt with bp log.
== END 2025-07-24 10:30 | disposition home or self-care (01) | DRG 322 ==
LOC: ER 17:25 → CSU 17:33
PROVIDERS: Internal Medicine; Admitting Provider Family Medicine; Emergency Provider Emergency Medicine; PCP Family Medicine; Visit Provider Registered Nurse
PROC: 027034Z Dilation of Coronary Artery, One Artery with Drug-eluting Intraluminal Device, Percutaneous Approach (ICD-10-PCS; principal; 2025-07-23 09:00)
PROC: 027034Z Dilation of Coronary Artery, One Artery with Drug-eluting Intraluminal Device, Percutaneous Approach (ICD-10-PCS; 2025-07-23 09:00)
DX: I21.4 Non-ST elevation (NSTEMI) myocardial infarction (principal); I25.810 Atherosclerosis of coronary artery bypass graft(s) without angina pectoris; J82.83 Eosinophilic asthma; I25.10 Atherosclerotic heart disease of native coronary artery without angina pectoris; I16.0 Hypertensive urgency; E78.2 Mixed hyperlipidemia; J44.9 Chronic obstructive pulmonary disease, unspecified; M06.00 Rheumatoid arthritis without rheumatoid factor, unspecified site; M51.369 Other intervertebral disc degeneration, lumbar region without mention of lumbar back pain or lower extremity pain; M48.061 Spinal stenosis, lumbar region without neurogenic claudication; I10 Essential (primary) hypertension; K21.9 Gastro-esophageal reflux disease without esophagitis; M10.9 Gout, unspecified; F32.A Depression, unspecified; Z79.52 Long term (current) use of systemic steroids; Z86.16 Personal history of COVID-19
CPT/HCPCS: 36415; 71045; 80048; 80053; 80061; 82306; 83690; 83735; 84484; 84550; 85025; 85347; 85610; 92937; 93005; 93306; 93455; 94640; 96372; 99152; 99153; 99285; C1725; C1760; C1769; C1874; C1887; C1894; G0269; J1644; J1650; J2250; J2470; J3010; J7030; J7613; J7626; J9999; Q9967

== ENCOUNTER → 2025-08-17 14:06 | Outpatient (BNVA) | payer MEDICARE, SELFPAY | PROVIDERS: PCP Family Medicine; Visit Provider Nurse Practitioner Family | DX: I25.10 Atherosclerotic heart disease of native coronary artery without angina pectoris (principal); J45.20 Mild intermittent asthma, uncomplicated; Z95.1 Presence of aortocoronary bypass graft; J44.9 Chronic obstructive pulmonary disease, unspecified; I11.0 Hypertensive heart disease with heart failure; I50.30 Unspecified diastolic (congestive) heart failure; R07.9 Chest pain, unspecified | CPT/HCPCS: 99214 ==